=== PATIENT | male | born 1945 | race Caucasian/White ===

== ENCOUNTER 2023-07-15 11:26 | Emergency (ER) | payer OTHER, SELFPAY ==
[2023-07-15 11:33] VITALS: BP 168/97
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
[2023-07-15] MEDS: ADACEL 0.5 ML IM (13:12)
[2023-07-15] MEDS: KEFLEX 500 MG PO (13:12)
[2023-07-15 13:17] VITALS: BP 159/89
== END 2023-07-15 13:25 | disposition home or self-care (01) ==
LOC: EMR 11:26
PROVIDERS: EMERGENCY PHYSICIAN Emergency Medicine; FAMILY PHYSICIAN Family Medicine
DX: S81.811A Laceration without foreign body, right lower leg, initial encounter (principal); W19.XXXA Unspecified fall, initial encounter; W45.8XXA Other foreign body or object entering through skin, initial encounter; G20.A1 Parkinson's disease without dyskinesia, without mention of fluctuations; I12.9 Hypertensive chronic kidney disease with stage 1 through stage 4 chronic kidney disease, or unspecified chronic kidney disease; N18.9 Chronic kidney disease, unspecified; E11.22 Type 2 diabetes mellitus with diabetic chronic kidney disease; N40.0 Benign prostatic hyperplasia without lower urinary tract symptoms; K21.9 Gastro-esophageal reflux disease without esophagitis; G47.30 Sleep apnea, unspecified; E78.00 Pure hypercholesterolemia, unspecified; M19.90 Unspecified osteoarthritis, unspecified site; F43.10 Post-traumatic stress disorder, unspecified; F41.9 Anxiety disorder, unspecified; F32.A Depression, unspecified; Z87.11 Personal history of peptic ulcer disease; Z86.73 Personal history of transient ischemic attack (TIA), and cerebral infarction without residual deficits; Z79.4 Long term (current) use of insulin; Z79.82 Long term (current) use of aspirin
CPT/HCPCS: 12031; 99282; 90471; 90715

== ENCOUNTER 2023-08-28 11:09 | Inpatient (IN) | payer OTHER, SELFPAY ==
[2023-08-28] VITALS (24 sets, daily range): BP systolic 125–171; BP diastolic 68–91; BMI 33.8; BMI 32.2
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
[2023-08-28] MEDS: NITROSTAT (SUBLINGUAL) 0.400000000000000022 MG SL (06:21)
[2023-08-28] MEDS: LOW STRENGTH ASPIRIN 324 MG PO (06:21)
[2023-08-28 06:26] LABS: % Basophils 0.2 % (0-2); % Eosinophils 1.4 % (0-6); % Immature Granulocytes 0.4 % (0-0.5); % Lymphocytes 15.1 % (20.5-51.1); % Monocytes 9.5 % (1.7-9.3); % Neutrophils 73.4 % (42.2-75.2); Absolute Eosinophils 0.1 10^3/uL (0-0.7); Absolute Lymphocytes 1.5 10^3/uL (1.2-3.4); Absolute Neutrophils 7.4 10^3/uL (1.4-6.5); Hematocrit 33.9 % (39.0-52.0); Hemoglobin 11.5 g/dL (13.0-18.0); Mean Corp Hgb Conc. 33.9 g/dL (33.0-37.0); Mean Corpuscular Hgb 28.4 pg (27.0-31.0); Mean Corpuscular Volume 83.7 fL (80.0-94.0); Mean Platelet Volume 10.7 fL (7.4-10.4); Nucleated Red Blood Cells % 0 % (-); Platelet Count 241 10^3/uL (130-400); Red Blood Cell Count 4.05 10^6/uL (4.70-6.10); Red Cell Dist. Width 12.9 % (11.5-14.5); White Blood Cell Count 10.1 10^3/uL (4.8-10.8)
[2023-08-28 06:34] LABS: ALT (SGPT) 15 U/L (0-50); AST (SGOT) 27 U/L (17-59); Albumin 4.4 g/dl (3.5-5.0); Alkaline Phosphatase 113 U/L (38-126); Blood Urea Nitrogen 52 mg/dl (9-20); Calcium 9.2 mg/dl (8.4-10.2); Carbon Dioxide 27 mmol/L (22-30); Chloride 94 mmol/L (98-107); Glucose 252 mg/dl (70-99); Potassium 4.2 mmol/L (3.5-5.1); Sodium 132 mmol/L (135-145); Total Bilirubin 0.4 mg/dl (0.2-1.3); Total Protein 7.7 g/dl (6.3-8.2); eGFR 51.13
[2023-08-28 06:52] LABS: Troponin I 0.335 ng/ml
[2023-08-28 06:53] LABS: Lipase 64 U/L (23-300)
--- NOTE | 2023-08-28 08:33 | CON.CAR ---
Addendum entered and electronically signed by Johnny Robles MD 08/28/23 10:58:
I saw and examined the patient.
The PULP REFINER OPERATOR or PA's note was reviewed and I agree with the note.
Comment: General: Well developed, well nourished in NAD.
Neck: Supple, no JVD, HJR, carotids +2 B/L, no bruits bilaterally.
Heart: Non displaced PMI, RRR, 2/6 systolic murmur heard throughout precordium, no S3, S4, no rubs.
Lungs: Clear to auscultation bilaterally, no wheeze, rhonchi, rubs bilaterally,
normal expiratory phase.
Abdomen: Normal bowel sounds, soft, non-tender, non-distended.
Extremities: Mild edema bilaterally.
Neuro: Grossly nonfocal, awake, alert and oriented x3.
Newton has a history of Parkinson's, hypertension, hyperlipidemia, diabetes, sleep apnea, TIA in 2016, heart murmur. He has had chest discomfort since 2:30 AM. He was unable to sleep and his son took him to the ER. In ER he initially had lower
abdominal pain which was felt to be urinary retention. He also had left-sided chest discomfort which improved with nitroglycerin. Troponin was 0.335 and cardiology was consulted. He denies chest pain at the present time
He has elevated troponin and chest pain. He has significant cardiac risk factors with an abnormal ECG with prior anteroseptal [place] which is unchanged. His chest pain has resolved and he should undergo cardiac catheterization when his workup has been
completed for possible abdominal pain and abnormal CAT scan with inflammation. Will check echocardiogram as he has a murmur consistent with aortic stenosis. Will consider catheterization possibly today or will defer to Wednesday 08/30 depending on
medical workup of abdominal pain and abnormal CAT scan. Of note renal function is relatively stable but abnormal. Will add Toprol. Check proBNP with edema. Discussed with son at bedside.
Original Note:
Consultation
Consultation Request
Date/Time Consultation Performed: 08/28/23
Requesting Provider: Dr. Lamas
Performing Provider: Terri Souza PA-C for Dr. Soto
Reason for Consultation: CP
Medical History
-
Chief Complaint: CP
History of Present Illness:
Patient is a 78-year-old male with past medical history of Parkinson's disease, hypertension, hyperlipidemia, diabetes, former smoker, LISA on BiPAP, BPH, history of TIA in 2016, heart murmur who presents to [facility] for evaluation of
chest pain. He reports that approximately 2:30 AM as he was laying down to go to bed he developed central to left-sided chest pain which he describes as an aching. He denies radiation of the pain, nausea vomiting, worsening shortness of breath,
lightheadedness or dizziness associated with the episode. He reports the pain lasted until he got here and received sublingual nitro. He is currently pain-free. He denies history of [place] or stents in the past. [facility],
however states he has not been seen there in a few years. He believes he has some degree of chronic kidney disease, however cannot tell me his baseline creatinine. Initial troponin 0.335. Cardiology consulted for evaluation
PMH:
Hypertension
Hyperlipidemia
Insulin-dependent diabetes
History of TIA in 2016
Heart murmur
LISA on BiPAP
Parkinson's disease
BPH
Former smoker
Family history of CAD
Past Medical History
Past Medical History: Other (in HPI)
Social History
Tobacco: Former Smoker
Alcohol: None
Personal:
Living: With Family
Employment: Retired
Family History
Family History: CAD (in father in 80s )
Allergies / Home Medications
Allergy/AdvReac Type Severity Reaction Status Date / Time
No Known Allergies Allergy Verified 08/28/23 05:29
�Medication �Instructions �Recorded �Confirmed �Type
Novalog Insulin 10 units SQ TID 11/27/08 11/03/19 History
Rosuvastatin 1 tab PO DAILY 11/27/08 11/03/19 History
Terazosin 3 tab PO HS 11/27/08 11/03/19 History
amlodipine 10 mg tablet 10 mg PO DAILY 11/27/08 11/03/19 History
aspirin 325 mg tablet 325 mg PO DAILY 11/27/08 11/03/19 History
atenolol 100 mg tablet 100 mg PO DAILY 11/27/08 11/03/19 History
furosemide 40 mg tablet 40 mg PO DAILY 11/27/08 11/03/19 History
lisinopril 40 mg tablet (Zestril) 40 mg PO DAILY 11/27/08 11/03/19 History
metformin 1,000 mg tablet 500 mg PO BID 11/27/08 11/03/19 History
omeprazole 20 mg capsule,delayed 20 mg PO DAILY 11/27/08 11/03/19 History
release
Levemir Flexpen: 50 unit SC HS 11/03/19 11/03/19 History
cephalexin 500 mg capsule 500 mg PO TID 3 days #9 caps 07/15/23 Rx
Review of Systems
-
History Source: Patient
All other systems: Negative unless noted
Physical Exam
Vital Signs
Temp Pulse Resp BP Pulse Ox
98.7 F 68 22 168/91 95
08/28/23 05:30 08/28/23 06:23 08/28/23 06:23 08/28/23 06:23 08/28/23 05:30
Lab Results
08/28/23 06:05
08/28/23 06:05
Troponin I 0.335 ng/ml H* 08/28/23 06:05
Physical Exam
General: No Apparent Distress, Comfortable and Other (on supp O2)
HEENT: Normocephalic, Anicteric and Moist Mucous Membranes
Respiratory: Clear and Non Labored Respirations
Cardiac: S1/S2, Regular Rhythm and Murmur
GI: Soft, Non Tender, Non Distended and Normal Bowel Sounds
Musculoskeletal: No Clubbing, No Cyanosis and Edema (1+ edema of B/L LE)
Skin: Warm, Dry and Other (old bandaid on RLE)
Neuro: AO x 3
Impression / Plan
-
Primary councilman: previously followed at the [facility], however not seen in several years
Assessment:
Presentation with CP
Elevated troponin, suspected NSTEMI, trop 0.335
CKD, unclear baseline Cr
Urinary retention/BPH
Chronic anemia
Hyponatremia
Findings consistent with duodenitis/PUD by CTAP 08/27
Severe coronary artery calcification by CTAP
Bifascicular block by EKG 08/27
Hypertension
Hyperlipidemia
Insulin-dependent diabetes
History of TIA in 2015, on chronic asa, plavix
Heart murmur
LISA on BiPAP
Parkinson's disease
BPH
Former smoker
Family history of CAD
ECHO 10/2008: EF 60%, no regional wall motion abnormalities, mild concentric LVH, mild MR, mildly dilated left atrium, mild with trace AI
Plan:
-Patient presents for evaluation of chest pain, relieved in ER by sublingual nitro. Cardiology consulted for evaluation
-remains pain free at present
-Initial troponin 0.335. trend to peak
-EKG sinus rhythm with PVC, bifascicular block
-continue OP asa, plavix
-check echo
-check lipids, hgbA1c, proBNP
-continue OP statin
-CTAP with evidence of coronary artery calcifications noted. also with significant risk factors for CAD as above. concern for MV CAD.
-discussed cath procedure with patient and son at bedside, remains NPO, however also discussed potential for increased procedural risk related to below:
-with anemia but hgb appears stable compared to prior visits. on DAPT as OP and tolerating
-patient believes he has some degree of CKD at baseline, however baseline Cr unknown. 1.4 could be baseline based on last several visits. we discussed risk of ATN associated with contrast from cath
-CTAP with evidence of duodenitis vs PUD. he denies N/V, reports abd pain which he believes is related to current urinary retention. as OP, no complaints of abd pain. eating well, no post prandial pain, fevers, nausea/ vomiting. he does take PPI
as outpatient as on chronic DAPT
-He has Parkinson's however is functional around his home, no significant tremor on exam, controlled on medications
-discussed potential cath today vs on Thursday after optimization pending eval of above
-he has ~1L urine in his bladder by bladder scan. may require straight cath
-d/w patient and son at bedside
Data Reviewed
-
EKG: Tracing Personally Visualized and interpreted
CT Scan: Report Reviewed by me
Medical Tests (Nuc Med, Echo etc): Report Reviewed by me
Labs: Labs Reviewed by me
Old Records: Reviewed
--- NOTE | 2023-08-28 09:09 | PHANOTE ---
08/28/2023, med rec tech, spoke to pt. to obtain pt.'s med. history; [facility] [place] [facility] [place]; pt. came in with paperwork from [facility] from 08/03/2023 with med. slade.
[2023-08-28 09:11] LABS: HDL Cholesterol 55 mg/dl; LDL Cholesterol, Calculated 66 mg/dl; Total Cholesterol 141 mg/dl (50-199); Triglyceride 103 mg/dl (10-149); Very Low Density Lipoprotein 20 mg/dl (0-30)
[2023-08-28 09:22] LABS: NT-proBNP 812 pg/ml
--- NOTE | 2023-08-28 10:05 | CARDSERVLU ---
Echocardiogram with Lumason completed after protocol screening completed. Allergies verified.
Patent IV site: __Rt AC___
IV site flushed with 0.9% NaCl pre and post administration.
Diluted bolus method utilized to enhance visualization of ventricular nichols.
Total volume given: __2.5__ mL
Patient tolerated all procedures well without complications.
[2023-08-28] MEDS: PROTONIX IV 40 MG IV (10:37)
--- NOTE | 2023-08-28 10:47 | HPS.HSE ---
Family Physician
-
Family Physician: Obduloi Pinto
Chief Complaint
-
chest pain
History of Present Illness
78-year-old male with extensive past medical history who is presenting from home with acute onset of left-sided substernal chest pain. Patient stated chest pain started approximately 3:30 AM in the morning right before he was can go to sleep.
Stated was substernal in nature. No radiation. . In the ER patient was also complaining of epigastric abdominal pain. Denies any nausea vomiting. States it has been 2 days since last bowel movement. States he has a history of enlarged
prostate. Denies any hematuria. States he has history of constipation. No prior history of gastrointestinal bleeding. Currently denies any chest pain. The ER patient underwent CT abdomen pelvis where he was found to have a severely enlarged
bladder status post Rod catheter placement.
Medical History
Past Medical History
Past Medical History: Reports Other
Additional Past Medical History:
Parkinson's disease
Primary hypertension
Hyperlipidemia
Insulin-dependent diabetes mellitus
Aortic stenosis
LISA on BiPAP
Depression
Anxiety
PTSD
History of tobacco abuse
BPH
History of TIA
Past Surgical History: Reports None
Social History
Tobacco: Former Smoker (Used to smoke a pack a day for many years quit)
Alcohol: Occasional
Family History
Family History: Not pertinent
Allergies / Home Medications
Allergies reflects when Allergies were last updated in [facility].
Home Medications with original date entered in [facility]
Allergy/Medication List:
Allergies
Allergy/AdvReac Type Severity Reaction Status Date / Time
No Known Allergies Allergy Verified 08/28/23 05:29
Home Medications
aspirin 325 mg tablet 325 mg PO DAILY Blood Clot Prevention/Tx 08/28/23
bupropion HCl 75 mg tablet 75 mg PO HS Mental Health 08/28/23
bupropion HCl 75 mg tablet 150 mg PO DAILY Mental Health 08/28/23
buspirone 15 mg tablet 30 mg PO HS Mental Health 08/28/23
carbidopa 25 mg-levodopa 100 mg tablet 2 tab PO TID Neurological Condition 08/28/23
clopidogrel 75 mg tablet 75 mg PO DAILY Blood Clot Prevention/Tx 08/28/23
cyanocobalamin (vitamin B-12) 1,000 mcg tablet 1,000 mcg PO DAILY Supplement 08/28/23
empagliflozin 25 mg tablet 12.5 mg PO DAILY Diabetes 08/28/23
escitalopram oxalate 10 mg tablet 30 mg PO DAILY Mental Health 08/28/23
finasteride 5 mg tablet 5 mg PO DAILY prostate issue 08/28/23
furosemide 40 mg tablet 40 mg PO DAILY Fluid Retention/Swelling 08/28/23
hydralazine 100 mg tablet 100 mg PO TID Blood Pressure 08/28/23
insulin aspart U-100 100 unit/mL subcutaneous solution (Novolog U-100 Insulin aspart) 0 sliding scale dose SC DIRECTED Diabetes 08/28/23
insulin detemir U-100 100 unit/mL subcutaneous solution (Levemir U-100 Insulin) 80 unit SC HS Diabetes 08/28/23
lisinopril 20 mg tablet 20 mg PO DAILY Blood Pressure 08/28/23
losartan 50 mg tablet 25 mg PO DAILY Blood Pressure 08/28/23
mirtazapine 15 mg tablet 7.5 mg PO HS Mental Health/Anxiety 08/28/23
omeprazole 20 mg capsule,delayed release 20 mg PO DAILY Gastrointestinal Issue 08/28/23
primidone 50 mg tablet 100 mg PO BID movement disorder 08/28/23
rosuvastatin 40 mg tablet 40 mg PO HS hg 08/28/23
tamsulosin 0.4 mg capsule 0.4 mg PO DAILY Urinary Issue 08/28/23
Review of Systems
-
History Source: Patient
A 12 point ROS was completed and negative except as noted: Yes
Physical Exam
Vital Signs
Vital Signs
Temp Pulse Resp BP Pulse Ox
98.7 F 62 20 164/78 95
08/28/23 05:30 08/28/23 10:30 08/28/23 10:30 08/28/23 09:30 08/28/23 10:30
Physical Exam
General: Well Developed, Well Nourished and No Apparent Distress
HEENT: NormoCephalic, Moist mucous membranes, Atraumatic and Oxygen
Respiratory: Clear
Cardiac: S1/S2 and Regular Rhythm; No Murmur or Rub
GI: Soft, Non Tender, Non Distended and Normal Bowel Sounds; No Organomegaly
Rectal: Deferred by Provider
Musculoskeletal: No Clubbing, No Cyanosis, Edema, Left Lower Extremity and Edema, Right Lower Extremity
Skin: No Rash
Neuro: Awake, Alert, Oriented, AO x 3 and Nonfocal/grossly intact
Psych: Calm
Laboratory Results
-
08/28/23 06:05
08/28/23 06:05
Laboratory Results
Total Bilirubin 0.4 mg/dl (0.2-1.3) 08/28/23 06:05
AST 27 U/L (17-59) 08/28/23 06:05
ALT 15 U/L (0-50) 08/28/23 06:05
Alkaline Phosphatase 113 U/L (38-126) 08/28/23 06:05
Troponin I 0.335 ng/ml H* 08/28/23 06:05
Lipase 64 U/L (23-300) 08/28/23 06:05
Impression/Plan
-
#Elevated troponin likely secondary to NSTEMI
#Chest pain secondary to above
Patient on Plavix and full dose aspirin (may need to clarify aspirin dosage)
Check lipid panel and A1c
Continue with statin
Trend troponin.
Echocardiogram with EF of 60 to 65%. Normal diastolic function. Right ventricle dilated. Mild�moderate aortic stenosis.
NTG prn
Intervention cardiology to evaluate patient-? Possible cardiac cath later today. Will keep n.p.o. till then
#Acute urinary retention in the setting of BPH
Status post Rod catheter placement
Continue with Flomax and finasteride
Can consider trial of voiding prior to discharge
#CKD stage III
Patient on CHAPARRO and ARB
Can consider discontinuing 1 of those
Continue to trend creatinine
Hold diuretics for today
#Duodenitis/peptic ulcer disease
Start PPI
#Parkinson's disease
Continue carbidopa levodopa
#Primary hypertension
Continue hydralazine
Consider continuing losartan and stopping CHAPARRO inhibitor
Will defer to cardiology
#Diabetes melitis insulin-dependent
Reduce Lantus to 40 units
Insulin sliding scale Accu-Cheks
Update A1c at 7.8
#Depression/mood disorder
Continue with Remeron
Continue with Lexapro
#Chronic constipation
Start Colace and will add MiraLAX
PTSD
Continue with bupropion and BuSpar
LISA on BiPAP. Son to bring machine from home
DVT prophylaxis- heparin
Discussed with son at bedside in detail
Discussed with cardiology
PT/OT in morning
I spent a total of 80 minutes with the patient or on the floor. More than 50% of this time involved counseling and coordination of care.
[2023-08-28 10:54] LABS: Glycohemoglobin (HgbA1c) 7.8 % (4.0-5.6)
[2023-08-28 14:57] LABS: Troponin I 0.241 ng/ml
[2023-08-28] MEDS: NSS 1000 IV (15:30)
--- NOTE | 2023-08-28 15:32 | CONSULT.CT ---
Consultation
-
Date/Time Consultation Requested: 08/27 1525
Date/Time Consultation Performed: 08/27 1534
Requesting Provider: Suzanna ARANGO
Performing Provider: Selma Cannon MD
Reason for Consultation: CABG Eval
Patient History
Physicians
Family Physician: Obdulio Pinto
Outpatient Lead Ramp Agent: Dr. Johnny Robles
Inpatient Lead Ramp Agent: Dr. Johnny Robles
History of Present Illness
78-year-old male with past medical history of Parkinson's disease, HTN, HLD, diabetes mellitus (insulin-dependent), aortic stenosis, obstructive sleep apnea on BiPAP, depression, anxiety, PTSD, BPH, TIA presented from home on 08/27 with sudden onset
of left substernal chest pain. Patient stated that chest pain started around 3:30 AM. While in the ER patient was complaining of epigastric abdominal pain however denies any nausea/vomiting. He also stated that it has been 2 days since his last
bowel movement and has a history of BPH. Due to the epigastric pain patient went for a CT of his abdomen and pelvis and it was found that he had a severely enlarged bladder therefore a Rod catheter was placed for retention. Patient was noted to
have elevated troponins, peak troponin was 0.335 ng/mL, therefore, patient was taken to the cardiac Fisheries Inspector. While in the Fisheries Inspector patient was found to have multivessel disease and moderate aortic stenosis. Therefore CT surgery was consulted for
surgical evaluation
Past Medical History
Past Medical History: Angina, CAD, Hypercholesterolemia, IDDM, LISA, Psychiatric, Renal Insufficiency and Valvular Disease
Parkinson's disease
Past Surgical History
Past Surgical History: None
Family History
Mother: at Age
Father: at Age
Social History
Alcohol: Occasional
Drug: None
Tobacco: Former Smoker
Allergies
Allergy/AdvReac Type Severity Reaction Status Date / Time
No Known Allergies Allergy Verified 08/28/23 05:29
Home Medications
�Medication �Instructions �Recorded �Confirmed �Type
aspirin 325 mg tablet 325 mg PO DAILY Blood Clot 08/28/23 08/28/23 History
Prevention/Tx
bupropion HCl 75 mg tablet 75 mg PO HS Mental Health 08/28/23 08/28/23 History
bupropion HCl 75 mg tablet 150 mg PO DAILY Mental Health 08/28/23 08/28/23 History
buspirone 15 mg tablet 30 mg PO HS Mental Health 08/28/23 08/28/23 History
carbidopa 25 mg-levodopa 100 mg 2 tab PO TID Neurological Condition 08/28/23 08/28/23 History
tablet
clopidogrel 75 mg tablet 75 mg PO DAILY Blood Clot 08/28/23 08/28/23 History
Prevention/Tx
cyanocobalamin (vitamin B-12) 1,000 mcg PO DAILY Supplement 08/28/23 08/28/23 History
1,000 mcg tablet
empagliflozin 25 mg tablet 12.5 mg PO DAILY Diabetes 08/28/23 08/28/23 History
escitalopram oxalate 10 mg tablet 30 mg PO DAILY Mental Health 08/28/23 08/28/23 History
finasteride 5 mg tablet 5 mg PO DAILY prostate issue 08/28/23 08/28/23 History
furosemide 40 mg tablet 40 mg PO DAILY Fluid 08/28/23 08/28/23 History
Retention/Swelling
hydralazine 100 mg tablet 100 mg PO TID Blood Pressure 08/28/23 08/28/23 History
insulin aspart U-100 100 unit/mL 0 sliding scale dose SC 08/28/23 08/28/23 History
subcutaneous solution (Novolog DIRECTED Diabetes
U-100 Insulin aspart)
insulin detemir U-100 100 unit/mL 80 unit SC HS Diabetes 08/28/23 08/28/23 History
subcutaneous solution (Levemir
U-100 Insulin)
lisinopril 20 mg tablet 20 mg PO DAILY Blood Pressure 08/28/23 08/28/23 History
losartan 50 mg tablet 25 mg PO DAILY Blood Pressure 08/28/23 08/28/23 History
mirtazapine 15 mg tablet 7.5 mg PO HS Mental Health/Anxiety 08/28/23 08/28/23 History
omeprazole 20 mg capsule,delayed 20 mg PO DAILY Gastrointestinal 08/28/23 08/28/23 History
release Issue
primidone 50 mg tablet 100 mg PO BID movement disorder 08/28/23 08/28/23 History
rosuvastatin 40 mg tablet 40 mg PO HS hg 08/28/23 08/28/23 History
tamsulosin 0.4 mg capsule 0.4 mg PO DAILY Urinary Issue 08/28/23 08/28/23 History
Review of Systems
-
History Source: Patient
General: Reports No Symptoms
HEENT: Reports No Symptoms
Respiratory: Reports SOB and QUEZADA
Cardiac: Reports Chest Pain
Abdomen/GI: Reports No Symptoms
: Reports Urgency and Frequency
Musculoskeletal: Reports Edema
Skin: Reports No Symptoms
Neurological: Reports TIA
Vascular: Reports No Symptoms
Physical Exam
Vital Signs
Temp 98.3 F 08/28/23 15:15
Temp route: Oral 08/28/23 15:15
Pulse 62 08/28/23 13:17
Resp Rate 18 08/28/23 15:15
Blood pressure 156/73 08/28/23 13:17
Blood pressure extremity used: Left upper arm 08/28/23 15:15
Position: Lying 08/28/23 15:15
MAP (cuff-Jennifer Monitor) 103 08/28/23 12:30
SaO2 92 08/28/23 15:15
Nasal Cannula flow liters per minute 1 08/28/23 13:23
Oxygen Mode of Delivery Room air 08/28/23 15:15
Acceptable pain level during hospitalization? 0 08/28/23 05:30
Can the patient verbally communicate their pain? Yes 08/28/23 13:23
Pain scale ratin 08/28/23 05:30
Actual Weight 90.537 kg 08/28/23 13:17
Body Mass Index (BMI) 32.2 08/28/23 13:17
Labs
08/28/23 06:05
08/28/23 06:05
Hemoglobin A1c 7.8 % (4.0-5.6) H 08/28/23 06:05
Troponin I 0.241 ng/ml H* 08/28/23 13:25
Pju-C-Qsclemyjpax Pept 812 pg/ml 08/28/23 06:05
Diagnostic Studies
HEMODYNAMICS : (mmHg)
AO (s/d) : 121/60
CORONARY FINDINGS
DOMINANCE: Right
LEFT MAIN: Normal
LEFT ANTERIOR DESCENDING: The LAD is moderate to heavily calcified as it arises from the left main and has diffuse atherosclerotic disease in its midportion. There are tandem 70%, 70%, and 60% stenoses in the mid LAD. The first diagonal branch
arises from the proximal one third of the LAD and has a small caliber vessel that has an 80% proximal stenosis. The diagonal branch is likely too small to graft or for percutaneous revascularization
CIRCUMFLEX: The circumflex is a medium caliber nondominant vessel supplying a large OM1 that runs in a distribution typical for a ramus intermedius. There is a 80% proximal stenosis just beyond its origin with a 95% distal stenosis supplying a
small terminal vessel.
RIGHT CORONARY ARTERY: The right coronary artery is a dominant vessel there is moderately calcified over its course. There is an eccentric 80% stenosis in the mid right coronary artery just beyond an RV marginal branch. The mid to distal RCA has
minor irregularities. The PDA has a 70% ostial stenosis but supplies a small vascular territory. The posterolateral branch has a 60% mid stenosis.
Exam
General: Well Developed, Well Nourished and Comfortable
HEENT: Normocephalic
Respiratory: Clear
Cardiac: Irregular Rhythm and Murmur
GI: Soft, Non Tender and Normal Bowel Sounds
Rectal: Deferred by Provider
Skin: Warm and Dry
Neuro: AO x 3 and Other (delayed/slow speech)
Extremities: Lower Level Edema and Pulses
Lymph: No Lymphadenopathy
Psych: Calm
Assessment / Plan
-
78-year-old male with past medical history listed above presented to the ER with abdominal and chest pain. Found to have acute urinary retention and ruled in for a non-STEMI. Patient was taken to the cardiac Fisheries Inspector in which multivessel disease
was found and CT surgery was consulted for surgical evaluation.
#CAD
-Patient's case will be discussed with attending physician. Further details regarding surgical timing intervention will be determined after attending physicians full evaluation.
-If deemed a surgical candidate, routine preoperative cardiothoracic surgery orders will be initiated. STS risk stratification score will be calculated after preoperative testing is complete
#Acute on Chronic CKD
- Continue to monitor trend
#Parkinson's Disease
- Continue carbidopa-levodopa
#hematuria
#BPH
#urinary retention
- noted to be more bloody s/p LHC
- monitor hgb
- Urology consult
#hyponatermia
- Monitor trend
#IDDM
- Hgb A1c 7.8
- SSI while in patient
- diabetes management consult
--- NOTE | 2023-08-28 15:33 | ITS.CL.CATH ---
[employer] - Catheterization
Cardiac Catheterization
Procedure Report:
LEFT HEART CATHETERIZATION
Date of Procedure: August 28, 2023
Referring: Dr. Johnny Robles
PROCEDURES:
1. Coronary angiography
INDICATION: This is a 78-year-old gentleman who has received most of his medical attention at the [facility]. He has a past medical history notable for Parkinson's disease, hypertension, hyperlipidemia, diabetes, sleep apnea, TIA, and heart
murmur. He awoke with substernal chest tightness and abdominal discomfort in approximately 2:30 AM. His troponin was mildly elevated on presentation peaking at 0.335 ng/mL on admission and trending lower. He has been chest pain-free. Initially
there was concern for abdominal pathology with complaints of abdominal discomfort. However, his symptoms improved following placement of a Rod catheter. A CT scan was notable for mild inflammatory changes in the second and third portion of the
duodenum. However, he was not felt to require IV antibiotics and is now referred for coronary angiography.
ACCESS: Right radial artery, 6 Setswana sheath
HEMODYNAMICS : (mmHg)
AO (s/d) : 121/60
CORONARY FINDINGS
DOMINANCE: Right
LEFT MAIN: Normal
LEFT ANTERIOR DESCENDING: The LAD is moderate to heavily calcified as it arises from the left main and has diffuse atherosclerotic disease in its midportion. There are tandem 70%, 70%, and 60% stenoses in the mid LAD. The first diagonal branch
arises from the proximal one third of the LAD and has a small caliber vessel that has an 80% proximal stenosis. The diagonal branch is likely too small to graft or for percutaneous revascularization
CIRCUMFLEX: The circumflex is a medium caliber nondominant vessel supplying a large OM1 that runs in a distribution typical for a ramus intermedius. There is a 80% proximal stenosis just beyond its origin with a 95% distal stenosis supplying a
small terminal vessel.
RIGHT CORONARY ARTERY: The right coronary artery is a dominant vessel there is moderately calcified over its course. There is an eccentric 80% stenosis in the mid right coronary artery just beyond an RV marginal branch. The mid to distal RCA has
minor irregularities. The PDA has a 70% ostial stenosis but supplies a small vascular territory. The posterolateral branch has a 60% mid stenosis.
VENTRICULOGRAPHY: Not done
RADIATION SUMMARY: Fluoro Time (min): 4.3, Dose (mGy): 374, DAP (Gy.cm2) : 30.5
Closure Device: TR band
CONCLUSIONS
1. Multivessel coronary artery disease
2. Moderate aortic stenosis
RECOMMENDATIONS
1. CT surgical consult to consider coronary artery bypass grafting +/- aortic valve replacement.
2. Will likely need PFTs
3. Family states patient is forgetful at times and has underlying Parkinson's disease. Will need further details
Copy to: Dr. Johnny Robles
--- NOTE | 2023-08-28 15:58 | CM ---
Chart reviewed. Patient is independent of ADLS, lives with his and son in a split level home, 2 KELLEN, 0 DME. Patient currently with no discharge needs. CM to follow.
[2023-08-28] MEDS: APRESOLINE 100 MG PO ×2 (16:11→21:18)
[2023-08-28] MEDS: COLACE 100 MG PO ×2 (16:13→21:16)
[2023-08-28] MEDS: PROSCAR 5 MG PO (16:13)
[2023-08-28] MEDS: TOPROL XL 25 MG PO (16:13)
[2023-08-28] MEDS: SINEMET 25-100 2 TABLET PO ×2 (16:22→21:14)
--- NOTE | 2023-08-28 17:05 | PTCARENOTE ---
Pt received post cath at 1515. Right radial band intact with no bleeding or hematoma. Pt denies any chest pain or sob. Rod draining blood tinged urine. Room air sat 97%.
[2023-08-28 18:01] LABS: Glucose - Point of Care 253 mg/dl (70-99)
[2023-08-28] MEDS: NOVOLOG FLEXPEN-LOW RESISTANCE 3 UNITS SC (18:26)
[2023-08-28 21:13] LABS: Glucose - Point of Care 290 mg/dl (70-99)
[2023-08-28] MEDS: LEVEMIR 0.400000000000000022 UNITS SC (21:13)
[2023-08-28] MEDS: HEPARIN 5000 UNITS SC (21:14)
[2023-08-28] MEDS: WELLBUTRIN REGULAR RELEASE 75 MG PO (21:14)
[2023-08-28] MEDS: REMERON 7.5 MG PO (21:14)
[2023-08-28] MEDS: CRESTOR 40 MG PO (21:14)
[2023-08-28] MEDS: BUSPAR 30 MG PO (21:16)
[2023-08-28] MEDS: MYSOLINE 100 MG PO (21:16)
--- NOTE | 2023-08-28 22:20 | PTCARENOTE ---
Pt ambulating the halls with dgt. POC discussed- pt verbalized understanding. pt occasionally repeats himself- educated on not getting OOB without assistance- Call [facility] within reach- camargo cath cleaned per protocol- draining blood tinged urine.
[2023-08-29] VITALS (7 sets, daily range): BP systolic 106–137; BP diastolic 64–77; BMI 32.4
[2023-08-29 06:10] LABS: Hematocrit 33.2 % (39.0-52.0); Hemoglobin 11.2 g/dL (13.0-18.0); Mean Corp Hgb Conc. 33.7 g/dL (33.0-37.0); Mean Corpuscular Hgb 28.4 pg (27.0-31.0); Mean Corpuscular Volume 84.3 fL (80.0-94.0); Mean Platelet Volume 10.9 fL (7.4-10.4); Platelet Count 228 10^3/uL (130-400); Red Blood Cell Count 3.94 10^6/uL (4.70-6.10); Red Cell Dist. Width 12.9 % (11.5-14.5); White Blood Cell Count 7.4 10^3/uL (4.8-10.8)
[2023-08-29 06:25] LABS: Blood Urea Nitrogen 38 mg/dl (9-20); Calcium 8.9 mg/dl (8.4-10.2); Carbon Dioxide 26 mmol/L (22-30); Chloride 97 mmol/L (98-107); Estimated Creatinine Clearance 49 ml/min; Glucose 156 mg/dl (70-99); Potassium 4.3 mmol/L (3.5-5.1); Sodium 134 mmol/L (135-145); eGFR 55.88
[2023-08-29 06:45] LABS: Glucose - Point of Care 146 mg/dl (70-99)
[2023-08-29] MEDS: COLACE 100 MG PO ×2 (08:04→22:03)
[2023-08-29] MEDS: TOPROL XL 25 MG PO (08:04)
[2023-08-29] MEDS: FLOMAX 0.400000000000000022 MG PO (08:04)
[2023-08-29] MEDS: APRESOLINE 100 MG PO ×3 (08:04→22:03)
[2023-08-29] MEDS: MYSOLINE 100 MG PO ×2 (08:04→22:04)
[2023-08-29] MEDS: VITAMIN B-12 1000 MCG PO (08:05)
[2023-08-29] MEDS: ASPIRIN 325 MG PO (08:05)
[2023-08-29] MEDS: PROSCAR 5 MG PO (08:05)
[2023-08-29] MEDS: HEPARIN 5000 UNITS SC ×2 (08:06→22:04)
[2023-08-29] MEDS: SINEMET 25-100 2 TABLET PO ×3 (08:11→22:04)
[2023-08-29] MEDS: LEXAPRO 30 MG PO (08:11)
[2023-08-29] MEDS: WELLBUTRIN REGULAR RELEASE 150 MG PO (08:11)
[2023-08-29] MEDS: NOVOLOG FLEXPEN-LOW RESISTANCE SC (08:18)
[2023-08-29] MEDS: MIRALAX 17 GRAMS PO (08:21)
--- NOTE | 2023-08-29 09:09 | W.PN.CARDCBS ---
Addendum entered and electronically signed by Edison Bragg MD 08/29/23 09:51:
I saw and examined the patient.
The Structural Shop Helper's note was reviewed and I agree with the note.
Comment:
GEN: No distress, awake, Ox3
HEENT: supple, anicteric, mmm
LUNGS: CTA, no wheezes/rales
CV: Reg, S1/S2, 1/6 syst LSB, no gallop
ABD: soft, BS+, NT/ND
EXT: No edema
NEURO: Gross non-focal
SKIN: No rash
Plan:
Clinically feels well. We reviewed the results of his catheterization. Continue aspirin and hold Plavix.
We will discuss his case with CT surgery and decide on CABG versus PCI. He does have moderate aortic stenosis. If he requires CABG we could do aortic valve as well. Another option would be to have our in several years.
Continue Toprol and Crestor.
Creatinine at 1.3. Will hold on restarting lisinopril/losartan. Likely will add one of the 2 back over the next 24 hours.
Original Note:
Today's Communication / Plan
-
Cont aspirin, outpatient dose of Plavix for h/o TIA is on hold
CABG vs PCI being considered
Cont medical therapy
Impression / Plan
-
PCP: Dr. Obdulio Pinto also follows with a PCP at the OR 1-2 times a year
Primary [employer]endiaries Supervisor: previously followed at the OR, however not seen in several years
Impression:
Presentation with chest pain and abdominal pain
NSTEMI, initial Troponin 0.335 and trending down thereafter
CAD with multivessel CAD by cath 08/28/23
Mild to mod aortic stenosis with mean gradient 19 mmHg by echo 08/28/23
CKD 3
Urinary retention/BPH
Chronic anemia
Hyponatremia
Findings consistent with duodenitis/PUD by CTAP 08/28/23
Bifascicular block by EKG 08/28/23
Hypertension
Hyperlipidemia
DM 2
History of TIA and now on chronic aspirin 325 mg and Plavix daily since 2015
LISA on BiPAP
Parkinson's disease
BPH
Former smoker
Family history of CAD
ECHO 10/2008: EF 60%, no regional wall motion abnormalities, mild concentric LVH, mild MR, mildly dilated left atrium, mild with trace AI
Echo 08/28/23: EF 60-65%, mild to mod with MPG 19 mmHg
Plan:
-Patient found to have multivessel CAD with tandem 60-70% mid LAD lesions, 80% prox Circ, 80 % mid RCA by cath 08/28/23. There was also evidence of moderate on echo and cath. CT surgery team has been consulted. Patient being evaluated for CABG +/-
AVR vs PCI and eventual TAVR.
-Initial Troponin was 0.335 and trended down thereafter. Will manage as NSTEMI. Cont outpatient dose of aspirin 325 mg daily
-Outpatient dose of Plavix is on hold, last dose 08/28/23. Patient has been taking DAPT for TIA since 2015
-EF preserved by echo.
-LDL 66. Outpatient dose of Crestor 40 mg daily has been continued.
-Sinus bradycardia and PVCs noted on overnight tele. Patient was not taking BB prior to admission and was started on Toprol XL 25 mg daily 08/28/23.
-Patient is a known diabetic and HgbA1c was 7.8%
-Cre was 1.4 on admission and is 1.3 on 08/29/23. Patient does not have a known h/o CKD and does not see a pipe changer. Follow BMP. Patient was taking lisinopril 20 mg daily and losartan 25 mg daily prior to admission, both are now on hold.
-Outpatient dose of hydralazine 100 mg TID has been continued and BP is controlled
-CT abd/pelvis on admission showed duodenitis vs PUD. Abdominal pain on admission appeared to resolve with resolution of urinary retention and has not recurred. He denies N/V. Outpatient dose of omeprazole switched to Protonix 40 mg daily
-Rod catheter in place
Progress Note - Incendiaries Supervisor
Subjective
Date of Service: August 29, 2023
No chest pain
Objective
Labs:
08/29/23 05:22
08/29/23 05:22
Labs
Hgb 11.2 g/dL (13.0-18.0) L 08/29/23 05:22
Hct 33.2 % (39.0-52.0) L 08/29/23 05:22
Plt Count 228 10^3/uL (130-400) 08/29/23 05:22
Sodium 134 mmol/L (135-145) L 08/29/23 05:22
Potassium 4.3 mmol/L (3.5-5.1) 08/29/23 05:22
BUN 38 mg/dl (9-20) H 08/29/23 05:22
Creatinine 1.3 mg/dL (0.7-1.3) 08/29/23 05:22
Glucose 156 mg/dl (70-99) H 08/29/23 05:22
Troponins
08/28/23 08/28/23 08/28/23
06:05 11:50 13:25
Troponin I 0.335 H* 0.230 H* D 0.241 H*
Vital Signs and I&O:
Vital Signs
Temp Pulse Resp BP Pulse Ox
98.5 F 62 20 126/72 96
08/29/23 06:45 08/29/23 07:00 08/29/23 06:45 08/29/23 06:45 08/29/23 06:45
Vital Signs
Temp Pulse Resp BP Pulse Ox
98.5 F 62 20 126/72 96
08/29/23 06:45 08/29/23 07:00 08/29/23 06:45 08/29/23 06:45 08/29/23 06:45
Intake & Output
08/27/23 08/28/23 08/29/23 08/30/23
06:59 06:59 06:59 06:59
Intake Total 480 / 480
Output Total 5425 / 5425
Balance -4945 / -4945
Physical Exam
Physical Exam
GEN: NAD. AAOx3
HEENT: EOMI, MMM
LUNGS: CTA without rales
CV: Reg, 2/6 syst LSB
ABD: soft, BS+
EXT: No edema B/L
NEURO: Gross non-focal
SKIN: No rash
[2023-08-29] MEDS: PROTONIX 40 MG PO (09:33)
--- NOTE | 2023-08-29 10:50 | W.PN.HOSP.TC ---
Today's Communication/Plan
-
AP agents
statin
CTS/Cards recs
hold acei/arb
Assessment / Plan
Assessment / Plan
#NSTEMI
#Chest pain secondary to above
#CAD multivessel
Patient on Plavix and full dose aspirin since 2016 s/p TIA at [facility]. No f/u since then for meds changing.
Continue with statin
Trend troponin.
Echocardiogram with EF of 60 to 65%. Normal diastolic function. Right ventricle dilated. Mild�moderate aortic stenosis.
Cardiac cath with mutivessel CAD.
CT surgery c/s for CABG +/- AVR
LDL 66
NTG prn
#Acute urinary retention in the setting of BPH
Status post Rod catheter placement
Continue with Flomax and finasteride
Can consider trial of voiding prior to discharge
#CKD stage III
Patient on CHAPARRO and ARB-hold both and can restart one of them.
Can consider discontinuing 1 of those
Continue to trend creatinine
Hold diuretics for today
#Duodenitis/peptic ulcer disease
Start PPI
#Parkinson's disease
Continue carbidopa levodopa
#Primary hypertension
Continue hydralazine
Consider continuing losartan and stopping CHAPARRO inhibitor
Will defer to cardiology
#Diabetes melitis insulin-dependent
Reduce Lantus to 40 units
Insulin sliding scale Accu-Cheks
Update A1c at 7.8
#Depression/mood disorder
Continue with Remeron
Continue with Lexapro
#Chronic constipation
Start Colace and will add MiraLAX
PTSD
Continue with bupropion and BuSpar
LISA on BiPAP. Son to bring machine from home
DVT prophylaxis- heparin
Discussed with cardiology
Anticipated Discharge: > 48 hours
Subjective/Interval History
-
Date of Service: August 29, 2023
denies cp or sob
Objective Data
-
Labs:
Laboratory Results
08/29/23
05:22
WBC 7.4
Hgb 11.2 L
Hct 33.2 L
Plt Count 228
Sodium 134 L
Potassium 4.3
Chloride 97 L
Carbon Dioxide 26
BUN 38 H
Creatinine 1.3
Glucose 156 H
Calcium 8.9
Vital Signs:
Vital Signs
Temp Pulse Resp BP Pulse Ox
98.5 F 62 20 126/72 96
08/29/23 06:45 08/29/23 07:00 08/29/23 06:45 08/29/23 06:45 08/29/23 06:45
I&O
08/28/23 08/29/23 08/30/23
06:59 06:59 06:59
Intake Total 480 / 480
Output Total 5425 / 5425
Balance -4945 / -4945
Physical Exam
-
General: Well Developed and No Apparent Distress
HEENT: Normocephalic, Atraumatic and Moist Mucous Membranes
Respiratory: Clear to Auscultation
Cardiac: Regular Rhythm and S1/S2; Negative Murmur, Rub or Gallop
GI: Soft, Nontender, Nondistended and Normal Bowel Sounds; Negative Organomegaly
Rectal: Deferred by Provider
Musculoskeletal: No Clubbing, No Cyanosis and No Edema
Skin: Negative Rash
Neuro: Awake, AO x 3 and Nonfocal/Grossly Intact
Psych: Calm
[2023-08-29] MEDS: NOVOLOG FLEXPEN-LOW RESISTANCE 2 UNITS SC (11:41)
[2023-08-29 11:42] LABS: Glucose - Point of Care 247 mg/dl (70-99)
[2023-08-29 16:59] LABS: Glucose - Point of Care 182 mg/dl (70-99)
[2023-08-29] MEDS: NOVOLOG FLEXPEN-LOW RESISTANCE 1 UNITS SC (17:04)
--- NOTE | 2023-08-29 17:23 | W.PN.UPDATE ---
Update Note
Progress Note Update
STS risk calc.
AVR/CABG
operative mortality 6.89%
morbidity&mortality 21.2%
Stroke 4.75%
Renal failure 10.2%
Reoperation 4.78%
Prolonged ventilation 14.7%
Deep sternal wound infection 0.532%
Long hospital stay(>14 days) 19.6%
Short hospital stay(>6days) 11.8%
--- NOTE | 2023-08-29 20:29 | PTCARENOTE ---
Pt resting in bed at change of shift- no complaints at this time. POC discussed- pt verbalized understanding. VSS. SB 1st degree and BBB on the monitor.
[2023-08-29 22:03] LABS: Glucose - Point of Care 222 mg/dl (70-99)
[2023-08-29] MEDS: WELLBUTRIN REGULAR RELEASE 75 MG PO (22:03)
[2023-08-29] MEDS: REMERON 7.5 MG PO (22:03)
[2023-08-29] MEDS: BUSPAR 30 MG PO (22:03)
[2023-08-29] MEDS: LEVEMIR 0.400000000000000022 UNITS SC (22:04)
[2023-08-29] MEDS: CRESTOR 40 MG PO (22:04)
[2023-08-30 04:58] VITALS: BP 130/78
[2023-08-30 06:01] LABS: Blood Urea Nitrogen 38 mg/dl (9-20); Calcium 8.4 mg/dl (8.4-10.2); Carbon Dioxide 25 mmol/L (22-30); Chloride 103 mmol/L (98-107); Estimated Creatinine Clearance 42 ml/min; Glucose 126 mg/dl (70-99); Magnesium 2.4 mg/dl (1.6-2.3); Potassium 4.1 mmol/L (3.5-5.1); Sodium 134 mmol/L (135-145); eGFR 47.06
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
[2023-08-30 07:50] VITALS: BP 133/35
[2023-08-30] MEDS: LEXAPRO 30 MG PO (07:58)
[2023-08-30] MEDS: SINEMET 25-100 2 TABLET PO ×3 (07:58→22:49)
[2023-08-30] MEDS: FLOMAX 0.400000000000000022 MG PO (07:59)
[2023-08-30] MEDS: MYSOLINE 100 MG PO ×2 (07:59→19:52)
[2023-08-30] MEDS: APRESOLINE 100 MG PO ×3 (07:59→22:49)
[2023-08-30] MEDS: PROTONIX 40 MG PO (07:59)
[2023-08-30] MEDS: VITAMIN B-12 1000 MCG PO (07:59)
[2023-08-30] MEDS: WELLBUTRIN REGULAR RELEASE 150 MG PO (08:00)
[2023-08-30] MEDS: ASPIRIN 325 MG PO (08:00)
[2023-08-30] MEDS: PROSCAR 5 MG PO (08:01)
[2023-08-30] MEDS: COLACE 100 MG PO ×2 (08:01→19:52)
[2023-08-30] MEDS: HEPARIN 5000 UNITS SC ×2 (08:04→19:52)
[2023-08-30] MEDS: MIRALAX 17 GRAMS PO (08:07)
[2023-08-30 08:08] VITALS: BMI 32.3
--- NOTE | 2023-08-30 08:20 | W.PN.UPDATE ---
Update Note
Progress Note Update
D/w Dr. Soto regarding plan of care. Family discloses he has been hallucinating and also more forgetful. MDT discussion with consensus to pursue PCI with TAVR evaluation once meets criteria. Per Dr. Soto, resume plavix.
Jake Cannon MD, MS
[2023-08-30 08:55] LABS: Glucose - Point of Care 128 mg/dl (70-99)
[2023-08-30] MEDS: NOVOLOG FLEXPEN-LOW RESISTANCE SC (09:09)
[2023-08-30] MEDS: PLAVIX 75 MG PO (09:45)
[2023-08-30] MEDS: TOPROL XL PO (10:53)
--- NOTE | 2023-08-30 11:12 | W.PN.CARDCBS ---
Today's Communication / Plan
-
Plan is for multivessel PCI on August 30
Check repeat creatinine in a.m. Current creatinine 1.5 continue to hold lisinopril and Cozaar
Having some sinus bradycardia with heart rates in the 30s. Hold Toprol
Continue aspirin and load Plavix today.
Continue high-dose Crestor
Impression / Plan
-
PCP: Dr. Obdulio Pinto also follows with a PCP at the [facility] 1-2 times a year
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
Impression:
Presentation with chest pain and abdominal pain
NSTEMI, initial Troponin 0.335 and trending down thereafter
CAD with multivessel CAD by cath 08/28/23
Mild to mod aortic stenosis with mean gradient 19 mmHg by echo 08/28/23
CKD 3
Urinary retention/BPH
Chronic anemia
Hyponatremia
Findings consistent with duodenitis/PUD by CTAP 08/28/23
Bifascicular block by EKG 08/28/23
Hypertension
Hyperlipidemia
DM 2
History of TIA and now on chronic aspirin 325 mg and Plavix daily since 2015
LISA on BiPAP
Parkinson's disease
BPH
Former smoker
Family history of CAD
ECHO 10/2008: EF 60%, no regional wall motion abnormalities, mild concentric LVH, mild MR, mildly dilated left atrium, mild with trace AI
Echo 08/28/23: EF 60-65%, mild to mod with MPG 19 mmHg
Plan:
-Patient found to have multivessel CAD with tandem 60-70% mid LAD lesions, 80% prox Circ, 80 % mid RCA by cath 08/28/23. There was also evidence of moderate on echo and cath. CT surgery team has been consulted. After discussions with
interventional cardiology, plan is for multivessel PCI August 30
-Initial Troponin was 0.335 and trended down thereafter. Will manage as NSTEMI. Cont outpatient dose of aspirin 325 mg daily
-Restart Plavix. Will load with 300 mg today.
-EF preserved by echo.
-LDL 66. Outpatient dose of Crestor 40 mg daily has been continued.
-Patient with marked bradycardia overnight with heart rates in the 30s. Will hold metoprolol today.
-Patient is a known diabetic and HgbA1c was 7.8%
-Cre was 1.4 on admission and is 1.5Patient does not have a known h/o CKD and does not see a dry house operator. Follow BMP. Patient was taking lisinopril 20 mg daily and losartan 25 mg daily prior to admission, both are now on hold.
-Outpatient dose of hydralazine 100 mg TID has been continued and BP is controlled
-CT abd/pelvis on admission showed duodenitis vs PUD. Abdominal pain on admission appeared to resolve with resolution of urinary retention and has not recurred. He denies N/V. Outpatient dose of omeprazole switched to Protonix 40 mg daily
Progress Note - Solid Waste Landfill Technician
Subjective
Date of Service: August 30, 2023
No new chest pains or abdominal pains.
Objective
Labs:
08/29/23 05:22
08/30/23 05:01
Labs
Hgb 11.2 g/dL (13.0-18.0) L 08/29/23 05:22
Hct 33.2 % (39.0-52.0) L 08/29/23 05:22
Plt Count 228 10^3/uL (130-400) 08/29/23 05:22
Sodium 134 mmol/L (135-145) L 08/30/23 05:01
Potassium 4.1 mmol/L (3.5-5.1) 08/30/23 05:01
BUN 38 mg/dl (9-20) H 08/30/23 05:01
Creatinine 1.5 mg/dL (0.7-1.3) H 08/30/23 05:01
Glucose 126 mg/dl (70-99) H 08/30/23 05:01
Troponins
08/28/23 08/28/23 08/28/23
06:05 11:50 13:25
Troponin I 0.335 H* 0.230 H* D 0.241 H*
Vital Signs and I&O:
Vital Signs
Temp Pulse Resp BP Pulse Ox
98.2 F 55 18 133/35 97
08/30/23 06:16 08/30/23 07:50 08/30/23 06:16 08/30/23 07:50 08/30/23 08:00
Vital Signs
Temp Pulse Resp BP Pulse Ox
98.2 F 55 18 133/35 97
08/30/23 06:16 08/30/23 07:50 08/30/23 06:16 08/30/23 07:50 08/30/23 08:00
Intake & Output
08/28/23 08/29/23 08/30/23 08/31/23
06:59 06:59 06:59 06:59
Intake Total 480 / 480
Output Total 5425 / 5425 850 / 850
Balance -4945 / -4945 -850 / -850
Physical Exam
Physical Exam
GEN: No distress, awake, Ox3
HEENT: supple, anicteric, mmm
LUNGS: CTA, no wheezes/rales
CV: Reg, S1/S2, 1/6 syst LSB, no gallop
ABD: soft, BS+, NT/ND
EXT: No edema
NEURO: Gross non-focal
SKIN: No rash
[2023-08-30 12:00] VITALS: BP 107/67
--- NOTE | 2023-08-30 12:15 | W.PN.HOSP.TC ---
Today's Communication/Plan
-
Cath w/ plan for intervention in the morning
Continue aspirin Plavix
Monitor sugars
Monitor blood pressure
Repeat labs in the morning
Assessment / Plan
Assessment / Plan
#NSTEMI
#Chest pain secondary to above
#CAD multivessel
# Bradycardia
Patient on Plavix and full dose aspirin since 2016 s/p TIA at [facility]. No f/u since then for meds changing.
Continue with statin
Toprol held for bradycardia
Echocardiogram with EF of 60 to 65%. Normal diastolic function. Right ventricle dilated. Mild�moderate aortic stenosis.
Cardiac cath with mutivessel CAD.
CT surgery no plan for intervention.
Plan for multivessel PCI tomorrow. Plavix restarted by cardiology.
LDL 66
NTG prn
#Acute urinary retention in the setting of BPH
Status post Rod catheter placement
Continue with Flomax and finasteride
Can consider trial of voiding prior to discharge
#CKD stage III
Patient on CHAPARRO and ARB-hold both and can restart one of them.
Can consider discontinuing 1 of those
Continue to trend creatinine
Creatinine 1.5. Repeat in the morning.
#Duodenitis/peptic ulcer disease
Start PPI�improving
#Parkinson's disease
Continue carbidopa levodopa
#Primary hypertension
Continue hydralazine
With bradycardia and metoprolol held
Consider continuing losartan and stopping CHAPARRO inhibitor
Will defer to cardiology
#Diabetes melitis insulin-dependent
Reduce Lantus to 40 units compared to 80 units prior to arrival at home
Insulin sliding scale Accu-Cheks
Update A1c at 7.8
POC 128 AM
#Depression/mood disorder
Continue with Remeron
Continue with Lexapro
#Chronic constipation
Start Colace and will add MiraLAX
PTSD
Continue with bupropion and BuSpar
LISA on BiPAP. Son to bring machine from home
DVT prophylaxis- heparin subcu
Anticipated Discharge: > 48 hours
Subjective/Interval History
-
Date of Service: August 30, 2023
Denies any chest pain
Tolerating diet
Objective Data
-
Labs:
Laboratory Results
08/30/23
05:01
Sodium 134 L
Potassium 4.1
Chloride 103
Carbon Dioxide 25
BUN 38 H
Creatinine 1.5 H
Glucose 126 H
Calcium 8.4
Vital Signs:
Vital Signs
Temp Pulse Resp BP Pulse Ox
98.2 F 55 18 133/35 97
08/30/23 06:16 08/30/23 07:50 08/30/23 06:16 08/30/23 07:50 08/30/23 08:00
I&O
08/29/23 08/30/23 08/31/23
06:59 06:59 06:59
Intake Total 480 / 480
Output Total 5425 / 5425 850 / 850
Balance -4945 / -4945 -850 / -850
Physical Exam
-
General: Well Developed and No Apparent Distress
HEENT: Normocephalic, Atraumatic and Moist Mucous Membranes
Respiratory: Clear to Auscultation
Cardiac: Regular Rhythm and S1/S2; Negative Murmur, Rub or Gallop
GI: Soft, Nontender, Nondistended and Normal Bowel Sounds; Negative Organomegaly
Rectal: Deferred by Provider
Musculoskeletal: No Clubbing, No Cyanosis and No Edema
Skin: Negative Rash
Neuro: Awake, AO x 3 and Nonfocal/Grossly Intact
Psych: Calm
[2023-08-30] MEDS: NOVOLOG FLEXPEN-LOW RESISTANCE 3 UNITS SC (12:27)
[2023-08-30 12:31] LABS: Glucose - Point of Care 257 mg/dl (70-99)
[2023-08-30 15:08] VITALS: BP 114/96
[2023-08-30] MEDS: PLAVIX 225 MG PO (15:12)
[2023-08-30 17:54] LABS: Glucose - Point of Care 197 mg/dl (70-99)
--- NOTE | 2023-08-30 18:00 | PTCARENOTE ---
Pt denies any chest pain or sob. OOB ad paulo in the room and tolerated oob in the chair all day. Rod still draining blood tinged urine. No c/o offered.
[2023-08-30] MEDS: NOVOLOG FLEXPEN-LOW RESISTANCE 1 UNITS SC (18:38)
[2023-08-30 18:58] VITALS: BP 127/67
[2023-08-30 21:57] LABS: Glucose - Point of Care 251 mg/dl (70-99)
[2023-08-30 22:32] VITALS: BP 122/68
[2023-08-30] MEDS: LEVEMIR SC (22:46)
[2023-08-30] MEDS: LEVEMIR 0.200000000000000011 UNITS SC (22:48)
[2023-08-30] MEDS: WELLBUTRIN REGULAR RELEASE 75 MG PO (22:49)
[2023-08-30] MEDS: BUSPAR 30 MG PO (22:49)
[2023-08-30] MEDS: REMERON 7.5 MG PO (22:49)
[2023-08-30] MEDS: CRESTOR 40 MG PO (22:49)
[2023-08-31] VITALS (13 sets, daily range): BP systolic 97–151; BP diastolic 64–133; BMI 32.3
--- NOTE | 2023-08-31 01:16 | PTCARENOTE ---
assumed care of patient at the change of shift. AAOx3. denies any cp/sob. SB-SR, first degree AVB and BBB-40s-60s. bp stable. NPO at midnight for cardiac cath. patient verbalized understanding. camargo care completed. camargo draining blood tinged
urine. educated to call RN with any changes. calls appropriately.
HS Levemir dose lowered per Arianne Anderson SCOOP DRIVER, see mar. BG 251, NPO.
[2023-08-31 04:52] LABS: INR 1.11; PT 14.1 Sec (11.4-14.6)
[2023-08-31 05:02] LABS: Blood Urea Nitrogen 41 mg/dl (9-20); Calcium 8.6 mg/dl (8.4-10.2); Carbon Dioxide 25 mmol/L (22-30); Chloride 102 mmol/L (98-107); Estimated Creatinine Clearance 42 ml/min; Glucose 182 mg/dl (70-99); Potassium 4.6 mmol/L (3.5-5.1); Sodium 131 mmol/L (135-145); eGFR 47.06
--- NOTE | 2023-08-31 05:31 | PTCARENOTE ---
patient slept well overnight. no cp/sob. wore his own BIPAP. NPO since midnight. Sinus oz 40s. bp stable.
[2023-08-31 07:41] LABS: Glucose - Point of Care 157 mg/dl (70-99)
[2023-08-31] MEDS: NOVOLOG FLEXPEN-LOW RESISTANCE SC ×3 (09:36→14:46)
[2023-08-31] MEDS: PROTONIX 40 MG PO (10:01)
[2023-08-31] MEDS: COLACE 100 MG PO ×2 (10:01→20:10)
[2023-08-31] MEDS: FLOMAX 0.400000000000000022 MG PO (10:01)
[2023-08-31] MEDS: APRESOLINE 100 MG PO ×3 (10:01→22:17)
[2023-08-31] MEDS: VITAMIN B-12 1000 MCG PO (10:02)
[2023-08-31] MEDS: PLAVIX 75 MG PO (10:02)
[2023-08-31] MEDS: WELLBUTRIN REGULAR RELEASE 150 MG PO (10:02)
[2023-08-31] MEDS: PROSCAR 5 MG PO (10:02)
[2023-08-31] MEDS: LEXAPRO 30 MG PO (10:03)
[2023-08-31] MEDS: ASPIRIN 325 MG PO (10:03)
[2023-08-31] MEDS: MYSOLINE 100 MG PO ×2 (10:03→20:10)
[2023-08-31] MEDS: MIRALAX PO (10:03)
[2023-08-31] MEDS: SINEMET 25-100 2 TABLET PO ×3 (10:03→22:16)
[2023-08-31] MEDS: HEPARIN 5000 UNITS SC ×2 (10:04→20:10)
--- NOTE | 2023-08-31 11:34 | CM ---
Chart reviewed. Patent is waiting to go to the orthodontic laboratory technician for a PCI. Patient is independent of ADLS, lives with his and son in a split level home, 2 KELLEN, 0 DME. Plan is for the patient to return home. CM to follow
--- NOTE | 2023-08-31 12:00 | PTCARENOTE ---
report given to pipelines laborer.
[2023-08-31 12:34] LABS: ACT-LR - POC 265 Seconds (116-155)
[2023-08-31 13:07] LABS: ACT-LR - POC 268 Seconds (116-155)
[2023-08-31 13:25] LABS: ACT-LR - POC > 397 Seconds (116-155)
--- NOTE | 2023-08-31 13:51 | ITS.CL.CATH ---
Fittings Finisher - Catheterization
Cardiac Catheterization
Procedure Report:
ANGIOPLASTY REPORT
Date of Procedure: August 31, 2023
Referring: Dr. Johnny Robles
INDICATIONS: This is a 78-year-old gentleman with a past medical history notable for longstanding Parkinson's disease, diabetes, and recent hospitalization for chest pain and non-ST segment elevation myocardial infarction. He was referred for
coronary angiography and found to have multivessel coronary artery disease with a high-grade stenosis in the mid right coronary artery and heavily calcified moderate multisegment coronary disease in the LAD and circumflex. The family reported a
gradual decline in patient's cognition and visual hallucinations most likely associated with his longstanding Parkinson's disease. He was seen in consult by CT surgery and offered surgical revascularization but was felt to be at significantly
elevated risk. He was therefore referred for reevaluation of percutaneous treatment options and returns today for elective stenting of the mid RCA.
PROCEDURES:
1. Successful stenting of the mid RCA with a 4.0 x 28 mm Xience stent that was postdilated with a 5.0 mm noncompliant balloon
ACCESS: Right radial artery, 6 [place] sheath
ANGIOPLASTY REPORT: Arterial access was obtained in the right radial artery and 9000 units of intravenous heparin were administered. Additional heparin was administered to maintain a therapeutic ACT. The patient arrived to the catheterization
laboratory on background therapy of aspirin and clopidogrel. The origin of the right coronary artery was cannulated with a 6 [place] JR4 guiding catheter and a BMW guidewire crossed the stenosis in the mid RCA and was advanced to the distal vessel
with a moderate degree of difficulty. Balloon predilation was performed with a 2.5 x 15 mm trek balloon. A GuideLiner was advanced to the mid RCA as the JR4 catheter provided little backup support. A 4.0 x 28 mm Xience stent was then advanced
over the guidewire but still would not cross the high-grade mid RCA stenosis. The stent was removed and the mid RCA was predilated to high pressures with a 3 mm noncompliant balloon. The GuideLiner was advanced over the balloon as the balloon was
deflated and into/across the most stenotic segment in the mid RCA. A 4.0 x 28 mm Xience stent could easily be delivered and GuideLiner was retracted uncovering the stent in the mid RCA. Angiography revealed excellent position of the stent which
was then deployed at 12 marcela. The entire stented segment was postdilated with a 5.0 mm noncompliant balloon to high pressures with a nice angiographic result
COMPLICATIONS: None
RADIATION SUMMARY: Fluoro Time (min): 10.6, Dose (mGy): 763.6, DAP (Gy.cm2) : 36.9
CONCLUSION
1. Successful stenting of the mid right coronary artery with a 4.0 x 28 mm Xience stent that was implanted at nominal pressures then postdilated to high pressures with a 5.0 mm noncompliant balloon
RECOMMENDATIONS
1. Uninterrupted dual antiplatelet therapy
2. Residual coronary disease in the circumflex and the LAD could be approached percutaneously for anginal symptoms refractory to medical therapy
Copy to: Dr. Johnny Robles
--- NOTE | 2023-08-31 14:20 | W.PN.HOSP.TC ---
Today's Communication/Plan
-
for PCI today
f/u renal function
will attempt voiding trial tomorrow
Assessment / Plan
Assessment / Plan
# Non-STEMI
# Chest pain secondary to above
# CAD multivessel
# Bradycardia
Patient on Plavix and full dose aspirin since 2016 s/p TIA at [facility]. No f/u since then for meds changing.
Continue with statin
Echocardiogram with EF of 60 to 65%. Normal diastolic function. Right ventricle dilated. Mild�moderate aortic stenosis.
Cardiac cath with multi-vessel CAD.
CT surgery no plan for intervention.
Plan for multivessel PCI today.
#Acute urinary retention in the setting of BPH
Status post Rod catheter placement
Continue with Flomax and finasteride
Can consider trial of voiding prior to discharge
#CKD stage III
Patient on CHAPARRO and ARB-hold both and can restart one of them.
Can consider discontinuing 1 of those
Continue to trend creatinine
Increased risk for KHUSHBOO with CKD/DM2
#Duodenitis/peptic ulcer disease
Start PPI�improving
#Parkinson's disease
Continue carbidopa levodopa
#Essential hypertension
Continue hydralazine
With bradycardia and metoprolol held
Consider continuing losartan and stopping CHAPARRO inhibitor
Will defer to cardiology
#Diabetes melitis insulin-dependent
Reduce Lantus to 40 units compared to 80 units prior to arrival at home
Insulin sliding scale Accu-Cheks
Update A1c at 7.8
#Depression/mood disorder
Continue with Remeron
Continue with Lexapro
#Chronic constipation
Start Colace and will add MiraLAX
#PTSD
Continue with bupropion and BuSpar
# LISA on BiPAP.
Son to bring machine from home
DVT prophylaxis- heparin subcu
Anticipated Discharge: Within 24 hours
Subjective/Interval History
-
Date of Service: August 31, 2023
No issues overnight
Objective Data
-
Labs:
Laboratory Results
08/31/23
04:21
PT 14.1
INR 1.11
Sodium 131 L
Potassium 4.6
Chloride 102
Carbon Dioxide 25
BUN 41 H
Creatinine 1.5 H
Glucose 182 H
Calcium 8.6
Vital Signs:
Vital Signs
Temp Pulse Resp BP Pulse Ox
97.7 F 49 18 133/75 95
08/31/23 13:38 08/31/23 13:45 08/31/23 13:38 08/31/23 13:45 08/31/23 13:38
I&O
08/30/23 08/31/23 09/01/23
06:59 06:59 06:59
Intake Total 400 / 400
Output Total 850 / 850 0 / 0 500 / 500
Balance -850 / -850 -1650 / -1650 -500 / -500
Review of Systems
-
Respiratory: Reports No Symptoms
Cardiac: Reports No Symptoms
Abdomen/GI: Reports No Symptoms
Physical Exam
-
General: No Apparent Distress
HEENT: Moist Mucous Membranes
Respiratory: Clear to Auscultation
Cardiac: Regular Rhythm and S1/S2; Negative Murmur
GI: Soft, Nontender, Nondistended and Normal Bowel Sounds
Rectal: Deferred by Provider
Musculoskeletal: No Edema
Skin: Negative Rash
Neuro: Awake, AO x 3 and Nonfocal/Grossly Intact
Psych: Calm
[2023-08-31 14:36] LABS: Glucose - Point of Care 135 mg/dl (70-99)
[2023-08-31 17:31] LABS: Glucose - Point of Care 296 mg/dl (70-99)
[2023-08-31] MEDS: NOVOLOG FLEXPEN-LOW RESISTANCE 3 UNITS SC (17:35)
[2023-08-31] MEDS: MIRALAX 17 GRAMS PO (17:39)
--- NOTE | 2023-08-31 20:20 | PTCARENOTE ---
NSR with first degree and BBB. VSS on RA. R radial site with dime size amount of drainage. No hematoma, pulse palpable. Rod with blood tinged urine. Assessment per nursing flowsheet.
[2023-08-31] MEDS: WELLBUTRIN REGULAR RELEASE 75 MG PO (22:16)
[2023-08-31] MEDS: CRESTOR 40 MG PO (22:16)
[2023-08-31] MEDS: BUSPAR 30 MG PO (22:16)
[2023-08-31] MEDS: REMERON 7.5 MG PO (22:17)
[2023-08-31 22:18] LABS: Glucose - Point of Care 321 mg/dl (70-99)
[2023-08-31] MEDS: LEVEMIR 0.400000000000000022 UNITS SC (22:19)
--- NOTE | 2023-09-01 01:21 | PTCARENOTE ---
Assumed care. Patient in chair, assisted to bed. Right radial site unchanged, scant drainage. Rod blood tinged with dark red sediment. QUEZADA, resolves with rest, home CPAP, call [facility]berry in reach
[2023-09-01 04:02] VITALS: BP 140/77
[2023-09-01 04:32] LABS: Hematocrit 31.4 % (39.0-52.0); Hemoglobin 10.6 g/dL (13.0-18.0); Mean Corp Hgb Conc. 33.8 g/dL (33.0-37.0); Mean Corpuscular Hgb 28.3 pg (27.0-31.0); Mean Platelet Volume 10.6 fL (7.4-10.4); Platelet Count 217 10^3/uL (130-400); Red Blood Cell Count 3.74 10^6/uL (4.70-6.10); Red Cell Dist. Width 13.1 % (11.5-14.5); White Blood Cell Count 6.3 10^3/uL (4.8-10.8)
[2023-09-01 05:01] LABS: Blood Urea Nitrogen 38 mg/dl (9-20); Calcium 8.4 mg/dl (8.4-10.2); Carbon Dioxide 21 mmol/L (22-30); Chloride 105 mmol/L (98-107); Estimated Creatinine Clearance 45 ml/min; Glucose 203 mg/dl (70-99); HDL Cholesterol 43 mg/dl; LDL Cholesterol, Calculated 56 mg/dl; Potassium 4.6 mmol/L (3.5-5.1); Sodium 133 mmol/L (135-145); Total Cholesterol 131 mg/dl (50-199); Triglyceride 161 mg/dl (10-149); Very Low Density Lipoprotein 32 mg/dl (0-30); eGFR 51.13
[2023-09-01 06:59] VITALS: BP 103/55
[2023-09-01 07:07] LABS: Glucose - Point of Care 160 mg/dl (70-99)
[2023-09-01] MEDS: NOVOLOG FLEXPEN-LOW RESISTANCE 1 UNITS SC (08:31)
[2023-09-01] MEDS: SINEMET 25-100 2 TABLET PO ×3 (08:32→22:24)
[2023-09-01] MEDS: APRESOLINE 100 MG PO ×3 (08:32→22:23)
[2023-09-01] MEDS: COLACE 100 MG PO ×2 (08:32→19:48)
[2023-09-01] MEDS: MIRALAX 17 GRAMS PO (08:32)
[2023-09-01] MEDS: PLAVIX 75 MG PO (08:32)
[2023-09-01] MEDS: PROTONIX 40 MG PO (08:33)
[2023-09-01] MEDS: MYSOLINE 100 MG PO ×2 (08:33→19:48)
[2023-09-01] MEDS: WELLBUTRIN REGULAR RELEASE 150 MG PO (08:33)
[2023-09-01] MEDS: HEPARIN 5000 UNITS SC ×2 (08:33→19:48)
[2023-09-01] MEDS: FLOMAX 0.400000000000000022 MG PO (08:33)
[2023-09-01] MEDS: VITAMIN B-12 1000 MCG PO (08:33)
[2023-09-01] MEDS: PROSCAR 5 MG PO (08:33)
[2023-09-01] MEDS: LEXAPRO 30 MG PO (08:33)
[2023-09-01] MEDS: LOW STRENGTH ASPIRIN 81 MG PO (08:33)
--- NOTE | 2023-09-01 10:05 | W.PN.CARDCBS ---
Addendum entered and electronically signed by Edison Bragg MD 09/01/23 10:53:
I saw and examined the patient.
The Manager Product Support's note was reviewed and I agree with the note.
Comment:
GEN: No distress, awake, Ox3
HEENT: supple, anicteric, mmm
LUNGS: CTA, no wheezes/rales
CV: Reg, S1/S2, 1/6 syst LSB, no gallop
ABD: soft, BS+, NT/ND
EXT: No edema
NEURO: Gross non-focal
SKIN: No rash
PLan:
Has no chest pains status post RCA PCI. Plan is to treat LAD and left circumflex lesions medically for now.
Continue aspirin and Plavix. Creatinine is overall stable at 1.4. Will restart lisinopril today. Has not tolerated beta-blockers because of marked bradycardia.
Is having some hematuria. Will discuss with medicine regarding discharge planning
Hemoglobin stable at 10.6
Original Note:
Today's Communication / Plan
-
Cont aspirin 81 mg and Plavix 75 mg daily
Restarting lower dose of lisinopril 10 mg daily
Cannot take Toprol XL due to bradycardia despite compliance with BiPAP
Stable for d/c from cardiac standpoint
Impression / Plan
-
PCP: Dr. Obdulio Pinto also follows with a PCP [facility] 1-2 times a year
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
Impression:
Presentation with chest pain and abdominal pain
NSTEMI, initial Troponin 0.335 and trending down thereafter
CAD with multivessel CAD by cath 08/28/23
Mild to mod aortic stenosis with mean gradient 19 mmHg by echo 08/28/23
CKD 3
Urinary retention/BPH
Chronic anemia
Hyponatremia
Findings consistent with duodenitis/PUD by CTAP 08/28/23
Bifascicular block by EKG 08/28/23
Hypertension
Hyperlipidemia
DM 2
History of TIA and now on chronic aspirin 325 mg and Plavix daily since 2015
LISA on BiPAP
Parkinson's disease
BPH
Former smoker
Family history of CAD
ECHO 10/2008: EF 60%, no regional wall motion abnormalities, mild concentric LVH, mild MR, mildly dilated left atrium, mild with trace AI
Echo 08/28/23: EF 60-65%, mild to mod with MPG 19 mmHg
Plan:
-Patient is s/p 4.0 Xience to mid RCA 08/31/23. Patient with residual tandem 60-70% mid LAD lesions and 80% prox Circ lesions that will be medically managed, but if patient has recurrent symptoms then will take back to sleep lab technician. Overall patient
reports that he is symptomatically improved compared to pre-PCI.
-There was also evidence of mild to moderate on echo and cath, plan is to follow by echo and symptomatically and can consider TAVR in the future.
-Initial Troponin was 0.335 and trended down thereafter. Will manage as NSTEMI.
-Patient was taking aspirin 325 mg and Plavix 75 mg daily prior to admission for h/o TIA in 2015. Aspirin dose reduced to 81 mg daily and Plavix continued.
-EF preserved by echo.
-LDL 66. Outpatient dose of Crestor 40 mg daily has been continued.
-Patient developed bradycardia with HRs in the 30s on Toprol XL 25 mg daily that was started this admission. Patient with known LISA and he was compliant with BiPAP during these episodes. Toprol XL stopped.
-Patient is a known diabetic and HgbA1c was 7.8%
-Cre peaked at 1.5 and is down to 1.4 on 09/01/23. Outpatient doses of lisinopril 20 mg daily and losartan 25 mg daily held. BP currently controlled, but higher overnight. Will restart lisinopril 10 mg daily 09/01/23 and recheck BMP as an outpatient in
1-2 weeks.
-Outpatient dose of hydralazine 100 mg TID has been continued
-CT abd/pelvis on admission showed duodenitis vs PUD. Abdominal pain on admission appeared to resolve with resolution of urinary retention and has not recurred. He denies N/V. Outpatient dose of omeprazole switched to Protonix 40 mg daily
-Stable for d/c to home from a cardiac standpoint on 09/01/23
Progress Note - Fiberglass Container Winding Operator
Subjective
Date of Service: September 01, 2023
He feels well and wants to go home today
Objective
Labs:
09/01/23 04:15
09/01/23 04:15
Labs
Hgb 10.6 g/dL (13.0-18.0) L 09/01/23 04:15
Hct 31.4 % (39.0-52.0) L 09/01/23 04:15
Plt Count 217 10^3/uL (130-400) 09/01/23 04:15
PT 14.1 Sec (11.4-14.6) 08/31/23 04:21
INR 1.11 08/31/23 04:21
Sodium 133 mmol/L (135-145) L 09/01/23 04:15
Potassium 4.6 mmol/L (3.5-5.1) 09/01/23 04:15
BUN 38 mg/dl (9-20) H 09/01/23 04:15
Creatinine 1.4 mg/dL (0.7-1.3) H 09/01/23 04:15
Glucose 203 mg/dl (70-99) H 09/01/23 04:15
Vital Signs and I&O:
Vital Signs
Temp Pulse Resp BP Pulse Ox
97.5 F 60 16 103/55 96
09/01/23 06:57 09/01/23 10:00 09/01/23 06:57 09/01/23 08:32 09/01/23 08:30
Vital Signs
Temp Pulse Resp BP Pulse Ox
97.5 F 60 16 103/55 96
09/01/23 06:57 09/01/23 10:00 09/01/23 06:57 09/01/23 08:32 09/01/23 08:30
Intake & Output
08/30/23 08/31/23 09/01/23 09/02/23
06:59 06:59 06:59 06:59
Intake Total 400 / 400
Output Total 850 / 850 2049 / 2049 1325 / 1325
Balance -850 / -850 -1650 / -1650 -1325 / -1325
Physical Exam
Physical Exam
GEN: NAD. AAOx3
HEENT: EOMI, MMM
LUNGS: No audible wheeze
CV: SR on tele
ABD: ND
EXT: No edema B/L
NEURO: Gross non-focal
SKIN: No rash
--- NOTE | 2023-09-01 10:55 | PTCARENOTE ---
received patient from night RN, monitor shows NSR with first degree.right radial dsg. shows old blood, good radial pulse. camargo draining blood tinged urine with clots, Dr. Whitlock aware.
--- NOTE | 2023-09-01 11:38 | CONS.URO ---
Consultation
-
Performing Provider: Johanna
Reason for Consultation: Urinary retention, hematuria
Medical History
History of Present Illness
78M admitted with NSTEMI
On admission he was found to have massively distended bladder without hydronephrosis
He was not complaining of difficulty voiding at this time and was surprised to be told his bladder was full
Camargo was placed for drainage of >1000cc
He has PMH of BPH, parkinsons, DM and has not had a urologist in the past follow bladder function. No prior episodes of known urinary retention. Currently managed with tamsulosin and finasteride.
At his baseline he is not particularly bothered by urinary symptoms
He does have some straining to void at times, occasional leakage. Stream slower than in the past.
Past Medical History
Past Medical History: Other (Parkinson's disease Primary hypertension Hyperlipidemia Insulin-dependent diabetes mellitus Aortic stenosis LISA on BiPAP Depression Anxiety PTSD History of tobacco abuse BPH History of TIA)
Past Surgical History: None
Social History
Tobacco: Former Smoker
Alcohol: Occasional
Family History
Family History: Reviewed & Not Pertinent
Allergies/Home Medications
Allergies
Allergy/AdvReac Type Severity Reaction Status Date / Time
No Known Allergies Allergy Verified 08/28/23 05:29
Home Medications
�Medication �Instructions �Recorded �Confirmed �Type
bupropion HCl 75 mg tablet 75 mg PO Mental Health 08/28/23 08/28/23 History
bupropion HCl 75 mg tablet 150 mg PO DAILY Mental Health 08/28/23 08/28/23 History
buspirone 15 mg tablet 30 mg PO Mental Health 08/28/23 08/28/23 History
carbidopa 25 mg-levodopa 100 mg 2 tab PO TID Neurological Condition 08/28/23 08/28/23 History
tablet
clopidogrel 75 mg tablet 75 mg PO DAILY Blood Clot 08/28/23 08/28/23 History
Prevention/Tx
cyanocobalamin (vitamin B-12) 1,000 mcg PO DAILY Supplement 08/28/23 08/28/23 History
1,000 mcg tablet
empagliflozin 25 mg tablet 12.5 mg PO DAILY Diabetes 08/28/23 08/28/23 History
escitalopram oxalate 10 mg tablet 30 mg PO DAILY Mental Health 08/28/23 08/28/23 History
finasteride 5 mg tablet 5 mg PO DAILY prostate issue 08/28/23 08/28/23 History
hydralazine 100 mg tablet 100 mg PO TID Blood Pressure 08/28/23 08/28/23 History
insulin aspart U-100 100 unit/mL 0 sliding scale dose SC 08/28/23 08/28/23 History
subcutaneous solution (Novolog DIRECTED Diabetes
U-100 Insulin aspart)
mirtazapine 15 mg tablet 7.5 mg PO HS Mental Health/Anxiety 08/28/23 08/28/23 History
omeprazole 20 mg capsule,delayed 20 mg PO DAILY Gastrointestinal 08/28/23 08/28/23 History
release Issue
primidone 50 mg tablet 100 mg PO BID movement disorder 08/28/23 08/28/23 History
rosuvastatin 40 mg tablet 40 mg PO HS hg 08/28/23 08/28/23 History
tamsulosin 0.4 mg capsule 0.4 mg PO DAILY Urinary Issue 08/28/23 08/28/23 History
aspirin 81 mg chewable tablet 81 mg PO DAILY Heart 09/01/23 Rx
(Children's Aspirin) disease/condition #30 tabs
furosemide 20 mg tablet (Lasix) 20 mg PO DAILY Fluid 09/01/23 Rx
retention/Swelling #30 tabs
insulin detemir U-100 100 unit/mL 60 unit (0.6 mL) SC HS Diabetes #0 09/01/23 08/28/23 Rx
subcutaneous solution (Levemir mL
U-100 Insulin)
lisinopril 10 mg tablet 10 mg PO DAILY Heart 09/01/23 Rx
disease/condition #30 tabs
pantoprazole 40 mg tablet,delayed 40 mg PO DAILY Gastrointestinal 09/01/23 Rx
release issue #30 tabs
Physical Exam
Vital Signs
Vital Signs
Temp Pulse Resp BP Pulse Ox
97.5 F 60 16 103/55 96
09/01/23 06:57 09/01/23 10:00 09/01/23 06:57 09/01/23 08:32 09/01/23 08:30
Lab / Testing Results
Laboratory Results
09/01/23 04:15
09/01/23 04:15
Physical Exam
General: Well Developed, Well Nourished and No Apparent Distress
Respiratory: Clear and Non Labored Respirations
GI: Soft and Non Tender
Genito-urinary: No Costovertebral Tend, Clear Urine and Camargo Catheter
Neuro: AO x 3
Psych: Calm and Intact Judgement
Assessment / Plan
-
78M admitted with NSTEMI and found to have large volume urinary retention >1000cc s/p camargo placement
Hx of BPH on tamsulosin and finasteride
- Suspect acute on chronic urinary retention given large volume and relative lack of symptoms
- May be due to BPH or contributed to by Parkinson's and DM causing neurogenic bladder
- Mild hematuria after camargo placement resolving, urine yellow today
- Maintain camargo, trial of void starting in early AM when nearing hospital discharge
- If significant retention persists, replace camargo
Outpatient follow up for further workup
[2023-09-01 12:08] VITALS: BP 148/89
[2023-09-01 12:23] LABS: Glucose - Point of Care 234 mg/dl (70-99)
[2023-09-01] MEDS: NOVOLOG FLEXPEN-LOW RESISTANCE 2 UNITS SC ×2 (12:27→17:38)
[2023-09-01 15:19] VITALS: BP 150/76
--- NOTE | 2023-09-01 16:37 | W.PN.HOSP.TC ---
Today's Communication/Plan
-
monitor overnight for resolution of hematuria
continue cardiac meds
Assessment / Plan
Assessment / Plan
# Non-STEMI
# Chest pain secondary to above
# CAD multivessel
# Bradycardia
Patient on Plavix and full dose aspirin since 2016 s/p TIA at [facility]. No f/u since then for meds changing.
Continue with statin
Echocardiogram with EF of 60 to 65%. Normal diastolic function. Right ventricle dilated. Mild�moderate aortic stenosis.
CT surgery no plan for intervention.
S/p RCA stenting by cardiology on 08/30 -cleared by cardiology to be discharged today
#Acute urinary retention in the setting of BPH
Hematuria
Status post Camargo catheter placement
Continue with Flomax and finasteride
Patient having mild hematuria, urology help requested -recommended to monitor overnight and voiding trial if hematuria clears in AM
#CKD stage III
Patient on CHAPARRO and ARB-hold both and can restart one of them.
Can consider discontinuing 1 of those
Continue to trend creatinine
Increased risk for KHUSHBOO with CKD/DM2
#Duodenitis/peptic ulcer disease
Start PPI�improving
#Parkinson's disease
Continue carbidopa levodopa
#Essential hypertension
Continue hydralazine
With bradycardia and metoprolol held
Consider continuing losartan and stopping CHAPARRO inhibitor
Will defer to cardiology
#Diabetes melitis insulin-dependent
Reduce Lantus to 40 units compared to 80 units prior to arrival at home
Insulin sliding scale Accu-Cheks
Update A1c at 7.8
#Depression/mood disorder
Continue with Remeron
Continue with Lexapro
#Chronic constipation
Start Colace and will add MiraLAX
#PTSD
Continue with bupropion and BuSpar
# LISA on BiPAP.
Son to bring machine from home
DVT prophylaxis- heparin subcu
Anticipated Discharge: Within 24 hours
Subjective/Interval History
-
Date of Service: September 01, 2023
Seen and examined
no chest discomfort/shortness of breath
No acute issues reported overnight
Objective Data
-
Labs:
Laboratory Results
09/01/23
04:15
WBC 6.3
Hgb 10.6 L
Hct 31.4 L
Plt Count 217
Sodium 133 L
Potassium 4.6
Chloride 105
Carbon Dioxide 21 L
BUN 38 H
Creatinine 1.4 H
Glucose 203 H
Calcium 8.4
Vital Signs:
Vital Signs
Temp Pulse Resp BP Pulse Ox
99.3 F 59 16 150/76 95
09/01/23 15:19 09/01/23 16:09 09/01/23 15:19 09/01/23 16:09 09/01/23 15:19
I&O
08/31/23 09/01/23 09/02/23
06:59 06:59 06:59
Intake Total 400 / 400
Output Total 2049 1325 / 1325 700 / 700
Balance -1650 / -1650 -1325 / -1325 -700 / -700
Review of Systems
-
Respiratory: Reports No Symptoms
Cardiac: Reports No Symptoms
Physical Exam
-
General: No Apparent Distress
HEENT: Moist Mucous Membranes
Respiratory: Clear to Auscultation
Cardiac: Regular Rhythm and S1/S2; Negative Murmur
GI: Soft, Nontender, Nondistended and Normal Bowel Sounds
Rectal: Deferred by Provider
Genito-urinary: Other (Hematuria/camargo catheter in place)
Musculoskeletal: No Edema
Skin: Negative Rash
Neuro: Awake, AO x 3 and Nonfocal/Grossly Intact
Psych: Calm
[2023-09-01 17:30] LABS: Glucose - Point of Care 231 mg/dl (70-99)
--- NOTE | 2023-09-01 18:14 | PTCARENOTE ---
patient has had numerous BM's today, patient stated, 'I shouldn't of had that prune juice'. Rod cath. remains intact draining blood tinged urine.
[2023-09-01 19:21] VITALS: BP 152/70
[2023-09-01 22:18] VITALS: BP 156/84
[2023-09-01 22:24] LABS: Glucose - Point of Care 259 mg/dl (70-99)
[2023-09-01] MEDS: REMERON 7.5 MG PO (22:24)
[2023-09-01] MEDS: CRESTOR 40 MG PO (22:24)
[2023-09-01] MEDS: BUSPAR 30 MG PO (22:24)
[2023-09-01] MEDS: LEVEMIR 0.400000000000000022 UNITS SC (22:25)
[2023-09-01] MEDS: WELLBUTRIN REGULAR RELEASE 75 MG PO (22:25)
--- NOTE | 2023-09-02 00:50 | PTCARENOTE ---
Pt.'s Rod continues to drain blood tinged uirne with bloody sediment. VSS, NSR on the monitor. No complaints chest pain/discomfort, right radial cath site intact. Pt. sleeping.
[2023-09-02 04:27] VITALS: BP 123/64
[2023-09-02 08:09] VITALS: BP 118/62
[2023-09-02 08:13] LABS: Glucose - Point of Care 140 mg/dl (70-99)
[2023-09-02] MEDS: NOVOLOG FLEXPEN-LOW RESISTANCE SC (08:21)
--- NOTE | 2023-09-02 08:46 | W.PN.HOSP.TC ---
Today's Communication/Plan
-
Voiding trial - if fails will need reinsertion of camargo
check h&h and BMP
discharge home
Assessment / Plan
Assessment / Plan
# Non-STEMI
# Chest pain secondary to above
# CAD multivessel
# Bradycardia
Patient on Plavix and full dose aspirin since 2016 s/p TIA at [facility]. No f/u since then for meds changing.
Continue with statin
Echocardiogram with EF of 60 to 65%. Normal diastolic function. Right ventricle dilated. Mild�moderate aortic stenosis.
CT surgery no plan for intervention.
S/p RCA stenting by cardiology on 08/30 -cleared by cardiology to be discharged
#Acute urinary retention in the setting of BPH
Hematuria
Status post Camargo catheter placement
Continue with Flomax and finasteride
Hematuria decreased, patient wants to do Voiding trial - order placed for camargo to be removed
Patient provided contact information for dr shahid's office.
#CKD stage III
Patient on CHAPARRO and ARB-hold both and can restart one of them.
Can consider discontinuing 1 of those
Continue to trend creatinine
Increased risk for KHUSHBOO with CKD/DM2
#Duodenitis/peptic ulcer disease
Start PPI�improving
#Parkinson's disease
Continue carbidopa levodopa
#Essential hypertension
Continue hydralazine
With bradycardia and metoprolol held
Consider continuing losartan and stopping CHAPARRO inhibitor
Will defer to cardiology
#Diabetes melitis insulin-dependent
Reduce Lantus to 40 units compared to 80 units prior to arrival at home
Insulin sliding scale Accu-Cheks
Update A1c at 7.8
#Depression/mood disorder
Continue with Remeron
Continue with Lexapro
#Chronic constipation
Start Colace and will add MiraLAX
#PTSD
Continue with bupropion and BuSpar
# LISA on BiPAP.
Son to bring machine from home
DVT prophylaxis- heparin subcu
More than 30 minutes spent in discharge including
Final examination of the patient
Summarizing hospital stay
Instructions for continuing care to all relevant caregivers
Preparation of discharge records, prescriptions, and referral forms
Total time spent (in minutes): 35 mins
Anticipated Discharge: Today
Subjective/Interval History
-
Date of Service: September 02, 2023
hematuria improved
no chest pain/ cardiac complains
Objective Data
-
Vital Signs:
Vital Signs
Temp Pulse Resp BP Pulse Ox
98.1 F 53 20 123/64 93
09/02/23 08:06 09/02/23 04:27 09/02/23 08:06 09/02/23 04:27 09/02/23 08:06
I&O
09/01/23 09/02/23 09/03/23
06:59 06:59 06:59
Intake Total 240 / 240
Output Total 1325 / 1325 2500 / 2500
Balance -1325 / -1325 -2260 / -2260
Review of Systems
-
Respiratory: Reports No Symptoms
Cardiac: Reports No Symptoms
Abdomen/GI: Reports No Symptoms
Physical Exam
-
General: No Apparent Distress
HEENT: Negative Oxygen
Respiratory: Clear to Auscultation
Cardiac: Regular Rhythm and S1/S2; Negative Murmur
GI: Soft, Nontender, Nondistended and Normal Bowel Sounds
Genito-urinary: Other (Hematuria/camargo catheter in place)
Musculoskeletal: No Edema
Skin: Negative Rash
Neuro: Awake, AO x 3 and Nonfocal/Grossly Intact
Psych: Calm
[2023-09-02] MEDS: PLAVIX 75 MG PO (09:17)
[2023-09-02] MEDS: ZESTRIL 10 MG PO (09:17)
[2023-09-02] MEDS: WELLBUTRIN REGULAR RELEASE 150 MG PO (09:18)
[2023-09-02] MEDS: VITAMIN B-12 1000 MCG PO (09:18)
[2023-09-02] MEDS: FLOMAX 0.400000000000000022 MG PO (09:18)
[2023-09-02] MEDS: LOW STRENGTH ASPIRIN 81 MG PO (09:18)
[2023-09-02] MEDS: COLACE PO (09:19)
[2023-09-02] MEDS: MYSOLINE 100 MG PO (09:19)
[2023-09-02] MEDS: PROTONIX 40 MG PO (09:19)
[2023-09-02] MEDS: APRESOLINE 100 MG PO ×2 (09:19→16:18)
[2023-09-02] MEDS: MIRALAX PO (09:20)
[2023-09-02] MEDS: HEPARIN SC (09:20)
[2023-09-02] MEDS: SINEMET 25-100 2 TABLET PO ×2 (09:22→16:18)
[2023-09-02] MEDS: LEXAPRO 30 MG PO (09:23)
[2023-09-02] MEDS: PROSCAR 5 MG PO (09:24)
[2023-09-02 09:29] LABS: Hematocrit 34.7 % (39.0-52.0); Hemoglobin 11.3 g/dL (13.0-18.0)
[2023-09-02 09:55] LABS: Blood Urea Nitrogen 36 mg/dl (9-20); Calcium 9.3 mg/dl (8.4-10.2); Carbon Dioxide 25 mmol/L (22-30); Chloride 102 mmol/L (98-107); Estimated Creatinine Clearance 45 ml/min; Glucose 138 mg/dl (70-99); Potassium 5.1 mmol/L (3.5-5.1); Sodium 136 mmol/L (135-145); eGFR 51.13
[2023-09-02 11:09] VITALS: BP 128/63
--- NOTE | 2023-09-02 12:30 | W.PN.CARDCBS ---
Addendum entered and electronically signed by Rosalind Mistry MD 09/02/23 14:48:
I saw and examined the patient.
The Repairer Pump's note was reviewed and I agree with the note.
Comment: Overall doing well. No major complaints. Has not ambulated halls yet.
Vitals and Labs reviewed. Exam with well developed gentleman with no acute distress, right radial site is dressed with no hematoma or bruit, RR, normal S1 and S2, no m/r/g, abd soft, NT, ND +BS warm ext
Reccs:
1. Cont DAPT with ASA and plvix, high intensity statin. BB not tolerated due to bradycardia.
2. Renal fxn remains stable.
3. Plan to ambulate and if no issues stable for discharge from cardiac standpoint.
4. Outpt cardiac rehab.
Rosalind Mistry MD, [facility], [facility]
Original Note:
Today's Communication / Plan
-
Cont aspirin 81 mg and Plavix 75 mg daily
Cre stable after restarting lower dose of lisinopril 10 mg daily yesterday
Lab slip for repeat BMP left with d/c papers in chart
Cannot take Toprol XL due to bradycardia despite compliance with BiPAP
Stable for d/c from cardiac standpoint
Impression / Plan
-
PCP: Dr. Obdulio Pinto also follows with a PCP at the [place] 1-2 times a year
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
Impression:
Presentation with chest pain and abdominal pain
NSTEMI, initial Troponin 0.335 and trending down thereafter
CAD with multivessel CAD by cath 08/28/23
Mild to mod aortic stenosis with mean gradient 19 mmHg by echo 08/28/23
CKD 3
Urinary retention/BPH
Chronic anemia
Hyponatremia
Findings consistent with duodenitis/PUD by CTAP 08/28/23
Bifascicular block by EKG 08/28/23
Hypertension
Hyperlipidemia
DM 2
History of TIA and now on chronic aspirin 325 mg and Plavix daily since 2016
LISA on BiPAP
Parkinson's disease
BPH
Former smoker
Family history of CAD
ECHO 10/2008: EF 60%, no regional wall motion abnormalities, mild concentric LVH, mild MR, mildly dilated left atrium, mild with trace AI
Echo 08/28/23: EF 60-65%, mild to mod with MPG 19 mmHg
Plan:
-Patient was scheduled for discharge 09/02/23, but then developed hematuria. Patient with a h/o BPH and self catheterizes at home. Rod placed this admission. Voiding trial planned for 09/02/23 and if needed Rod will be re-placed and patient will
follow up with urology as an outpatient.
-Patient with NSTEMI and multivessel CAD this admission. Ultimately had a 4.0 Xience to mid RCA 08/31/23. Patient with residual tandem 60-70% mid LAD lesions and 80% prox Circ lesions that will be medically managed, but if patient has recurrent
symptoms then will take back to computer lab assistant. Overall patient reports that he is symptomatically improved compared to pre-PCI.
-There was also evidence of mild to moderate on echo and cath, plan is to follow by echo as well as symptomatically and can consider TAVR in the future.
-Initial Troponin was 0.335 and trended down thereafter. Will manage as NSTEMI.
-Patient was taking aspirin 325 mg and Plavix 75 mg daily prior to admission for h/o TIA in 2015. Aspirin dose reduced to 81 mg daily and Plavix continued.
-EF preserved by echo.
-LDL 66. Outpatient dose of Crestor 40 mg daily has been continued.
-Patient developed bradycardia with HRs in the 30s on Toprol XL 25 mg daily that was started this admission. Patient with known LISA and he was compliant with BiPAP during these episodes. Toprol XL stopped.
-Patient is a known diabetic and HgbA1c was 7.8%
-Cre peaked at 1.5 this admission. Outpatient doses of lisinopril 20 mg daily and losartan 25 mg daily held this admission due to EWA. Restarted lisinopril 10 mg daily 09/01/23 and Cre stable at 1.4 on 09/02/23. Recheck BMP as an outpatient in 1-2
weeks.
-Outpatient dose of hydralazine 100 mg TID has been continued
-CT abd/pelvis on admission showed duodenitis vs PUD. Abdominal pain on admission appeared to resolve with resolution of urinary retention and has not recurred. He denies N/V. Outpatient dose of omeprazole switched to Protonix 40 mg daily
-Stable for d/c to home from a cardiac standpoint on 09/02/23
Progress Note - Diamond Selector
Subjective
Date of Service: September 02, 2023
He feels well and wants to go home
Objective
Labs:
09/02/23 09:06
09/02/23 09:06
Labs
Hgb 11.3 g/dL (13.0-18.0) L 09/02/23 09:06
Hct 34.7 % (39.0-52.0) L 09/02/23 09:06
Plt Count 217 10^3/uL (130-400) 09/01/23 04:15
PT 14.1 Sec (11.4-14.6) 08/31/23 04:21
INR 1.11 08/31/23 04:21
Sodium 136 mmol/L (135-145) 09/02/23 09:06
Potassium 5.1 mmol/L (3.5-5.1) 09/02/23 09:06
BUN 36 mg/dl (9-20) H 09/02/23 09:06
Creatinine 1.4 mg/dL (0.7-1.3) H 09/02/23 09:06
Glucose 138 mg/dl (70-99) H 09/02/23 09:06
Vital Signs and I&O:
Vital Signs
Temp Pulse Resp BP Pulse Ox
97.7 F 51 20 118/62 95
09/02/23 11:03 09/02/23 08:09 09/02/23 11:03 09/02/23 08:09 09/02/23 11:03
Vital Signs
Temp Pulse Resp BP Pulse Ox
97.7 F 51 20 118/62 95
09/02/23 11:03 09/02/23 08:09 09/02/23 11:03 09/02/23 08:09 09/02/23 11:03
Intake & Output
08/31/23 09/01/23 09/02/23 09/03/23
06:59 06:59 06:59 06:59
Intake Total 400 / 400 240 / 240
Output Total 2049 / 2049 1325 / 1325 2500 / 2500
Balance -1650 / -1650 -1325 / -1325 -2260 / -2260
Physical Exam
Physical Exam
GEN: NAD. AAOx3
HEENT: EOMI, MMM
LUNGS: No audible wheeze
CV: SR on tele
ABD: ND
EXT: No edema B/L
NEURO: Gross non-focal
SKIN: No rash
[2023-09-02 12:49] LABS: Glucose - Point of Care 306 mg/dl (70-99)
--- NOTE | 2023-09-02 12:54 | CM ---
Addendum entered by DALILA Gamboa 09/03/23 08:53:
Correction to below note:
Pt. was DC'ed to home w/ [facility].
Original Note:
CM following for DC planning needs.
Anticipate DC to home today. There are no identified DC needs.
Plan is for home, no needs.
[2023-09-02] MEDS: NOVOLOG FLEXPEN-LOW RESISTANCE 4 UNITS SC ×2 (13:37→17:27)
[2023-09-02] MEDS: PREVNAR 20 0.5 ML IM (13:42)
[2023-09-02 15:41] VITALS: BP 159/76
[2023-09-02 17:31] LABS: Glucose - Point of Care 328 mg/dl (70-99)
[2023-09-02 19:25] VITALS: BP 136/74
--- NOTE | 2023-09-02 19:30 | PTCARENOTE ---
Pt with no c/o today. Pt to be discharged when son arrives. Discharge instructions given and reviewed with good understanding. Rod instructions completed for care at home. Pt verbalizes good understanding.
[2023-09-02 19:40] VITALS: BP 136/74
--- NOTE | 2023-09-02 19:40 | PTCARENOTE ---
Son came up to room to apple picking supervisor patient. reviewed discharge instructions with son and emphasized with patient. VSS. IV site removed. tele removed. patient escorted with all belongings to sons car via wheelchair by RN.
--- NOTE | 2023-09-04 07:30 | W.DCSUMMARY ---
Discharge Summary
Discharge Data
Date of Admission: 08/28/23
Date of Discharge: 09/02/23
-
Pending Results: No
Hospital Course
Discharging Physician : Dr Emmanuel Whitlock
Disposition : Home with HH
Primary care physician : Dr Obdulio Pinto
Principal Discharge diagnosis :
Non-ST segment elevation myocardial infarction from multivessel coronary disease
Acute urine retention
Hematuria
Chronic Discharge diagnosis :
Chronic kidney disease stage III
History of peptic ulcer disease
Parkinson's disease
Essential hypertension
Diabetes mellitus
Depression/mood disorder
Posttraumatic stress disorder
Obstructive sleep apnea on positive pressure therapy
Hospital Course :
Patient is a 78-year-old male with above-mentioned complex past medical history came to ER with new onset of left-sided chest pain. Patient has a history of coronary artery disease and based on clinical evaluation there was concern patient having
NSTEMI. Troponin were elevated. Patient was started on heparin drip and cardiology was involved in care. Patient was taken to [facility] which showed multivessel coronary disease and moderate aortic stenosis. Patient was brought back for CT
surgery evaluation for possible bypass graft and aortic valve replacement. Cardio thoracic surgery evaluated patient and after discussion with interventional cardiology it was decided for patient to take repeat complicated PCI and eventual TAVR.
Patient underwent uncomplicated repeat PCI with stenting of right coronary artery with Xience stent. Patient has been recommended for uninterrupted dual antiplatelet therapy going forward. Patient had some residual coronary artery disease in
circumflex and LAD and can be intervened upon if have further symptoms. Patient to follow-up with cardiology in office.
Patient also had new urinary retention diagnosed in ER requiring Rod catheter placement. Patient does have history of BPH but has not been following with any urologist at [facility] lately. Post heart catheterization patient was noted to having some
hematuria and urology evaluated patient. Urology recommended for patient to visit in office for further discussion of definitive treatment of prostate enlargement. Voiding trial was attempted although patient failed and Rod was reinserted at
discharge.
Important imaging findings :
None
Procedure findings :
None
Discharge Plan
-
Patient Disposition: Home with Home Care
Discharge Diagnosis/Procedures: NSTEMI, s/p angioplasty and stent to Right Coronary artery
Condition: Good
Diet: Low Cholesterol and Diabetic, Carb Controlled
Activity: Other activity
Additional Activity: See attached sheets
Driving Restrictions: No driving for 24 hours
Bathing Restrictions: OK to Shower
Other Services: Cardiac Rehab
Specialty Instructions: Weigh Daily- Call MD for wt gain/loss 3 lbs overnight/5 lbs in 1 week
Stand Alone Forms: DC Instructions- Cath/EP Lab
Referrals:
[facility]. Cardiac Rehab [Outside] - 10/09/23 1:00 pm
(Cardiac Rehab Orientation appointment and� First Exercise appointment is on __Thursday10/09/23 at 1:00 pm.____
The Cardiac Rehab gym is located on the first floor of the [facility].)
[facility].Visiting Nurs [Outside]
Cielo Thomson PA-C [Specified Professional Personl] - 09/15/23 2:40 pm
Obdulio Pinto MD [Family Provider] - in one week
Rich Spencer MD [Active] - in one to two weeks
Additional Discharge Medication Instructions: -STOP taking losartan
-Start taking a lower dose of lisinopril 10 mg (1/2 of a 20 mg tablet or one 10 mg tablet) once a day
-Continue taking Plavix (clopidogrel) 75 mg once a day
-Decrease aspirin dose to 81 mg once a day
-Omeprazole has been replaced with pantoprazole
-Decrease Lasix (furosemide) to 20 mg (1/2 of a 40 mg tablet) once a day
Prescriptions:
New
pantoprazole 40 mg Tablet,Delayed Release (Dr/Ec)
40 mg PO DAILY Qty: 30 11RF
lisinopril 10 mg Tablet
10 mg PO DAILY Qty: 30 11RF
aspirin [Children's Aspirin] 81 mg Tablet,Chewable
81 mg PO DAILY Qty: 30 0RF
furosemide [Lasix] 20 mg tablet
20 mg PO DAILY Qty: 30 0RF
Continued
primidone 50 mg Tablet
100 mg PO BID
cyanocobalamin (vitamin B-12) 1,000 mcg Tablet
1,000 mcg PO DAILY
clopidogrel 75 mg Tablet
75 mg PO DAILY
tamsulosin 0.4 mg Capsule
0.4 mg PO DAILY
insulin aspart U-100 [Novolog U-100 Insulin aspart] 100 unit/mL Solution
0 sliding scale dose SC DIRECTED
Patient Comments:
08/28/2023, pt. unsure of sliding scale.
hydralazine 100 mg Tablet
100 mg PO TID
bupropion HCl 75 mg Tablet
150 mg PO DAILY
bupropion HCl 75 mg Tablet
75 mg PO HS
omeprazole 20 mg Capsule,Delayed Release(Dr/Ec)
20 mg PO DAILY
mirtazapine 15 mg Tablet
7.5 mg PO HS
carbidopa-levodopa 25-100 mg Tablet
2 tab PO TID
finasteride 5 mg Tablet
5 mg PO DAILY
buspirone 15 mg Tablet
30 mg PO HS
escitalopram oxalate 10 mg Tablet
30 mg PO DAILY
rosuvastatin 40 mg Tablet
40 mg PO HS
empagliflozin 25 mg Tablet
12.5 mg PO DAILY
Changed
Levemir U-100 Insulin 100 unit/mL Solution
60 unit SC HS Qty: 0 0RF
Discontinued
losartan 50 mg Tablet
25 mg PO DAILY
furosemide 40 mg Tablet
40 mg PO DAILY
aspirin 325 mg Tablet
325 mg PO DAILY
lisinopril 20 mg Tablet
20 mg PO DAILY
Discharge Orders:
Discharge Patient (As Directed); Ordered 09/02/23
Ordered By: Emmanuel Whitlock
Care Plan Goals
Care Plan Goals:
Problem: Readiness for enhanced knowledge related to diagnosis and treatment plan
Goal: Understand your diagnosis and treatment plan needs, including medications if applicable.
Instructions: Know your diagnosis, underlying causes and treatment plan options, including medications if applicable. Consult with your health care team to learn about your diagnosis and treatment plan, including medications if applicable.
Discharge Date and Time
Discharge Date/Time: 09/02/23 20:00
Print Language: DANISH
== END 2023-09-02 20:00 | disposition home health service (06) | DRG 322 ==
LOC: IVU 11:09
PROVIDERS: Internal Medicine Cardiovascular Disease; Nurse Practitioner; Nurse Practitioner Adult Health; Physician Assistant; Student in an Organized Health Care Education/Training Program; ADMITTING PHYSICIAN Hospitalist; ATTENDING PHYSICIAN Hospitalist; CONSULT PHYSICIAN Thoracic Surgery (Cardiothoracic Vascular Surgery); CONSULT PHYSICIAN Urology; EMERGENCY PHYSICIAN Emergency Medicine; FAMILY PHYSICIAN Family Medicine; OTHER PHYSICIAN Internal Medicine Interventional Cardiology
PROC: 4A023N7 Measurement of Cardiac Sampling and Pressure, Left Heart, Percutaneous Approach (ICD-10-PCS; 2023-08-28)
PROC: B2151ZZ Fluoroscopy of Left Heart using Low Osmolar Contrast (ICD-10-PCS; 2023-08-28)
PROC: B2111ZZ Fluoroscopy of Multiple Coronary Arteries using Low Osmolar Contrast (ICD-10-PCS; 2023-08-28)
PROC: 027034Z Dilation of Coronary Artery, One Artery with Drug-eluting Intraluminal Device, Percutaneous Approach (ICD-10-PCS; 2023-08-31)
DX: I21.4 Non-ST elevation (NSTEMI) myocardial infarction (principal); E87.1 Hypo-osmolality and hyponatremia; Z87.891 Personal history of nicotine dependence; D64.9 Anemia, unspecified; N18.30 Chronic kidney disease, stage 3 unspecified; I12.9 Hypertensive chronic kidney disease with stage 1 through stage 4 chronic kidney disease, or unspecified chronic kidney disease; G20.A1 Parkinson's disease without dyskinesia, without mention of fluctuations; E11.22 Type 2 diabetes mellitus with diabetic chronic kidney disease; Z79.4 Long term (current) use of insulin; F32.A Depression, unspecified; K59.09 Other constipation; F43.10 Post-traumatic stress disorder, unspecified; G47.33 Obstructive sleep apnea (adult) (pediatric); I25.10 Atherosclerotic heart disease of native coronary artery without angina pectoris; I35.0 Nonrheumatic aortic (valve) stenosis; Z79.02 Long term (current) use of antithrombotics/antiplatelets; Z86.73 Personal history of transient ischemic attack (TIA), and cerebral infarction without residual deficits
CPT/HCPCS: 51798; 74176; 80048; 80053; 80061; 82962; 83036; 83690; 83735; 83880; 84484; 85014; 85018; 85025; 85027; 85347; 85610; 90677; 93005; 93306; 93454; 96374; 99285; C1725; C1769; C1874; C1894; C9600; G0009; Q9950; Q9967

== ENCOUNTER 2023-09-26 02:21 | Inpatient (IN) | payer OTHER, SELFPAY ==
[2023-09-25 23:21] VITALS: BP 110/61
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
[2023-09-25 23:42] VITALS: BP 137/58
[2023-09-25] MEDS: NITROSTAT (SUBLINGUAL) 0.400000000000000022 MG SL (23:49)
[2023-09-25 23:52] LABS: % Basophils 0.5 % (0-2); % Eosinophils 4.7 % (0-6); % Immature Granulocytes 0.4 % (0-0.5); % Monocytes 8.1 % (1.7-9.3); % Neutrophils 54.3 % (42.2-75.2); Absolute Eosinophils 0.4 10^3/uL (0-0.7); Absolute Lymphocytes 2.4 10^3/uL (1.2-3.4); Absolute Monocytes 0.6 10^3/uL (0.1-0.6); Absolute Neutrophils 4.1 10^3/uL (1.4-6.5); Hematocrit 35.3 % (39.0-52.0); Hemoglobin 11.9 g/dL (13.0-18.0); Mean Corp Hgb Conc. 33.7 g/dL (33.0-37.0); Mean Corpuscular Hgb 28.3 pg (27.0-31.0); Mean Platelet Volume 9.7 fL (7.4-10.4); Nucleated Red Blood Cells % 0 % (-); Platelet Count 235 10^3/uL (130-400); Red Cell Dist. Width 14.5 % (11.5-14.5); White Blood Cell Count 7.6 10^3/uL (4.8-10.8)
[2023-09-26] VITALS (11 sets, daily range): BP systolic 109–151; BP diastolic 49–77; PULSE 2–65; O2SAT 94; BMI 31.4
[2023-09-26 00:14] LABS: ALT (SGPT) < 10 U/L (0-50); AST (SGOT) 28 U/L (17-59); Albumin 4.4 g/dl (3.5-5.0); Alkaline Phosphatase 106 U/L (38-126); Blood Urea Nitrogen 34 mg/dl (9-20); Calcium 9.1 mg/dl (8.4-10.2); Carbon Dioxide 31 mmol/L (22-30); Chloride 97 mmol/L (98-107); Glucose 51 mg/dl (70-99); Potassium 3.5 mmol/L (3.5-5.1); Sodium 133 mmol/L (135-145); Total Bilirubin 0.3 mg/dl (0.2-1.3); eGFR 37.82
[2023-09-26 00:27] LABS: Troponin I 0.059 ng/ml
[2023-09-26 01:07] LABS: Glucose - Point of Care 100 mg/dl (70-99)
--- NOTE | 2023-09-26 01:21 | HPS.HSE ---
Family Physician
-
Family Physician: Denise Mistry
Chief Complaint
-
Chest pain
History of Present Illness
This is a 78-year-old male with a past medical history that significant for CAD status post PCI with stenting of the mid RCA 1 month ago who now presents again with intermittent chest pain over the last 2 days.
Patient has history significant for diabetes on insulin, hypertension, hyperlipidemia, LISA on BiPAP, GERD who was recently admitted to the hospital for chest pain found to have NSTEMI. He underwent PCI with stenting to the mid right coronary with
residual disease noted in the circumflex and LAD that may be amenable to stenting. Patient was placed on dual antiplatelet therapy. Initial troponin on that admission was 0.2. Patient had admission that was complicated by urinary retention status
post placement of indwelling catheter. He still has indwelling catheter. He reports that he was chest pain-free up until at least 2 days ago when he reported intermittent chest pain that is located in the left chest. He denies any radiation.
There is mild shortness of breath and mild nausea. He denies any diaphoresis. Chest pain typically last about 1 hour before resolving. He denies any exacerbating or relieving factors.
He denied any other symptoms.
On arrival in the emergency department the patient was hemodynamically stable and he appears in no acute distress except for intermittent chest pain. His initial troponin was 0.059, the EKG shows sinus rhythm at a rate of 71 1st degree AV block and
known right bundle without any acute ST or T wave changes. CBC was unremarkable. Chemistries notable for a glucose of 51. Recieved sl-ntg with moderate improvement in chest pain.
Medical History
Past Medical History
Past Medical History: Reports CAD and IDDM
Additional Past Medical History:
CAD s/p NSTEMI, PCI to mid RCA
HLD
HTN
GERD
Parkinsons
LISA on BIPAP
BPH, Urinary retention
Past Surgical History: Reports None
Social History
Tobacco: Former Smoker
Alcohol: None
Drug: None
Personal:
Living: With Family
Employment: Retired
Family History
Family History: Not pertinent
Allergies / Home Medications
Allergies reflects when Allergies were last updated in [facility].
Home Medications with original date entered in [facility]
Allergy/Medication List:
Allergies
Allergy/AdvReac Type Severity Reaction Status Date / Time
No Known Allergies Allergy Verified 08/28/23 05:29
Home Medications
bupropion HCl 75 mg tablet 75 mg PO HS Mental Health 08/28/23
bupropion HCl 75 mg tablet 150 mg PO DAILY Mental Health 08/28/23
buspirone 15 mg tablet 30 mg PO HS Mental Health 08/28/23
carbidopa 25 mg-levodopa 100 mg tablet 2 tab PO TID Neurological Condition 08/28/23
clopidogrel 75 mg tablet 75 mg PO DAILY Blood Clot Prevention/Tx 08/28/23
cyanocobalamin (vitamin B-12) 1,000 mcg tablet 1,000 mcg PO DAILY Supplement 08/28/23
empagliflozin 25 mg tablet 12.5 mg PO DAILY Diabetes 08/28/23
escitalopram oxalate 10 mg tablet 30 mg PO DAILY Mental Health 08/28/23
finasteride 5 mg tablet 5 mg PO DAILY prostate issue 08/28/23
hydralazine 100 mg tablet 100 mg PO TID Blood Pressure 08/28/23
insulin aspart U-100 100 unit/mL subcutaneous solution (Novolog U-100 Insulin aspart) 0 sliding scale dose SC DIRECTED Diabetes 08/28/23
mirtazapine 15 mg tablet 7.5 mg PO HS Mental Health/Anxiety 08/28/23
omeprazole 20 mg capsule,delayed release 20 mg PO DAILY Gastrointestinal Issue 08/28/23
primidone 50 mg tablet 100 mg PO BID movement disorder 08/28/23
rosuvastatin 40 mg tablet 40 mg PO HS hg 08/28/23
tamsulosin 0.4 mg capsule 0.4 mg PO DAILY Urinary Issue 08/28/23
aspirin 81 mg chewable tablet (Children's Aspirin) 81 mg PO DAILY Heart disease/condition #30 tabs 09/01/23
furosemide 20 mg tablet (Lasix) 20 mg PO DAILY Fluid retention/Swelling #30 tabs 09/01/23
insulin detemir U-100 100 unit/mL subcutaneous solution (Levemir U-100 Insulin) 60 unit (0.6 mL) SC HS Diabetes #0 mL 09/01/23
lisinopril 10 mg tablet 10 mg PO DAILY Heart disease/condition #30 tabs 09/01/23
pantoprazole 40 mg tablet,delayed release 40 mg PO DAILY Gastrointestinal issue #30 tabs 09/01/23
Review of Systems
-
History Source: Patient
Constitutional: Reports No Symptoms
EENT: Reports No Symptoms
Respiratory: Reports No Symptoms
Cardiac: Reports Chest Pain
Abdomen/GI: Reports No Symptoms
: Reports No Symptoms
Musculoskeletal: Reports No Symptoms
Skin: Reports No Symptoms
Neurological: Reports No Symptoms
Endocrine: Reports No Symptoms
Hematologic/Lymphatic: Reports No Symptoms
Psych: Reports No Symptoms
Physical Exam
Vital Signs
Vital Signs
Temp Pulse Resp BP Pulse Ox
97.8 F 66 16 118/49 94
09/25/23 23:21 09/26/23 00:30 09/26/23 00:30 09/26/23 00:00 09/26/23 00:30
Physical Exam
General: No Apparent Distress
HEENT: NormoCephalic, Anicteric, Moist mucous membranes, Atraumatic and PERRLA
Respiratory: Clear
Cardiac: S1/S2 and Regular Rhythm
Breast: Deferred by me
GI: Soft, Non Tender, Non Distended and Normal Bowel Sounds
Rectal: Deferred by Provider
Genito-urinary: Rod
Musculoskeletal: No Clubbing, No Cyanosis and No Edema
Skin: Warm
Neuro: AO x 3 and Tremors (resting tremors)
Hematologic/Lymphatic: No Lymphadenopathy
Psych: Calm
Laboratory Results
-
09/25/23 23:45
09/25/23 23:45
Laboratory Results
Total Bilirubin 0.3 mg/dl (0.2-1.3) 09/25/23 23:45
AST 28 U/L (17-59) 09/25/23 23:45
ALT < 10 U/L (0-50) 09/25/23 23:45
Alkaline Phosphatase 106 U/L (38-126) 09/25/23 23:45
Troponin I 0.059 ng/ml H* 09/25/23 23:45
Data Reviewed
-
Diagnostic Radiology: Image Personally Visualized and interpreted
Medical Tests (Nuc Med, Echo, EKG etc): Image Personally Visualized and interpreted
Lab Data: Labs Reviewed by me
Old Records: Reviewed
Impression/Plan
-
IMPRESSION:
PLAN:
1. Chest pain - Patient with h/o CAD s/p PCI with stent to RCA and known residual L-Circ and LAD disease presents with intermittent chest pain without exertional component. Non-radiating, pressure like sensation lasting 1 - 2 hours with associated
SOB and mild nausea. ECG unchanged from prior w/o acute ischemia. Troponin 0.054 which is down from 0.2 in last admission. Chest Xray w/o infiltrates. No NSTEMI at this time but possibly unstable angina.
- admit to telemetry
- cycle cardiac enzymes
- continue statin and DAPT, no AC for now
- NTG prn chest pain
- echo in am
- cardiology consultation
2. DM II - Hypoglycemic here today.
- give dextrose 1/2 amp
- restart lower dose of levemir/lantus (40 units HS instead of 70)
- moderate sliding scale
- hold empagliflozin
3. Urinary retention - s/p indwelling folew w/ failure of voiding trial
- renal function is stable.
- continue tamsulosin & finasteride
4. Parkinson
- carbidopa levidopa
- primidone 100 bid
5. LISA
- BIPAP HS
6. GERD
- ppi daily
7. CKD - Mild rise in cr to 1.8 from baseline of 1.4. Urinary catheter in place.
- hold lasix
- continue lisinopril 10
DVT PPX with lovenox sq
Full code
[2023-09-26] MEDS: DEXTROSE 50% SYRINGE 12.5 GRAMS IV (02:15)
[2023-09-26 02:48] LABS: Glucose - Point of Care 134 mg/dl (70-99)
--- NOTE | 2023-09-26 03:00 | PTCARENOTE ---
Pt transferred from ED. Pt ambulated into room with assistance. Pt oriented to unit, call [facility] within reach. Will continue with current plan.
[2023-09-26 04:21] LABS: Troponin I 0.063 ng/ml
--- NOTE | 2023-09-26 07:55 | W.PN.HOSP.TC ---
Today's Communication/Plan
-
see bold
Assessment / Plan
Assessment / Plan
HPI: 78-year-old male with a past medical history that significant for CAD status post PCI with stenting of the mid RCA 1 month ago who now presents again with intermittent chest pain over the last 2 days.
1. Chest pain
H/o CAD s/p PCI with stent to RCA and known residual L-Circ and LAD disease presents with intermittent chest pain without exertional component.
ECG unchanged from prior w/o acute ischemia. Troponin 0.054 which is down from 0.2 in last admission.
Chest Xray w/o infiltrates. No NSTEMI at this time but possibly unstable angina.
Appreciate cardiology input, started on Imdur 30 mg daily
Continue aspirin, Plavix, statin, beta-mirna
Monitor overnight
2. DM II - Hypoglycemic
Status post dextrose
Patient takes Levemir 60 units at night
Reduced to 35 units at night, sliding scale insulin
Continue empagliflozin, continue to monitor blood sugars
3. Urinary retention - s/p indwelling folew w/ failure of voiding trial
Continue Camargo, Flomax, finasteride
4. Parkinson
Continue Sinemet and primidone 100 bid
5. LISA
BIPAP HS
6. GERD
Continue PPI
7. Stage IIIa chronic kidney disease
Creatinine 1.5 at baseline, resume Lasix
8. Anxiety/depression
Continue Lexapro, bupropion, buspirone, Remeron
9. Benign essential hypertension
Continue hydralazine 100 mg 3 times daily
DVT prophylaxis�subcu Lovenox
Full code
Total time spent to see the patient on the floor, examine the patient, review data and lab results, discuss treatment plan with patient, nursing staff around 50 minutes.
Physical Exam
General: Morbidly obese, no acute distress
HEENT: Normocephalic, Atraumatic, EOMI, MMM
Respiratory: Clear to Auscultation bilaterally
Cardiac: Normal S1/S2, Regular Rate and Rhythm
GI: Soft, Nontender, Nondistended, Normal Bowel Sounds
: +chronic camarog
Extremities: No Clubbing, Cyanosis, or Edema
Neuro: Nonfocal/Grossly Intact
Psych: Calm, Cooperative
Derm: No Visible lesions
Anticipated Discharge: Within 24 hours
Subjective/Interval History
-
Date of Service: September 26, 2023
Chest pain resolved. No shortness of breath. No nausea, no vomiting. No fever.
Objective Data
-
Labs:
Laboratory Results
09/25/23 09/26/23
23:45 05:57
WBC 7.6 Pending
Hgb 11.9 L Pending
Hct 35.3 L Pending
Plt Count 235 Pending
Sodium 133 L Pending
Potassium 3.5 Pending
Chloride 97 L Pending
Carbon Dioxide 31 H Pending
BUN 34 H Pending
Creatinine 1.8 H Pending
Glucose 51 L* Pending
Calcium 9.1 Pending
Total Bilirubin 0.3
AST 28
ALT < 10
Alkaline Phosphatase 106
Vital Signs:
Vital Signs
Temp Pulse Resp BP Pulse Ox
98.1 F 62 16 151/77 97
09/26/23 02:51 09/26/23 02:51 09/26/23 02:51 09/26/23 02:51 09/26/23 02:51
I&O
09/25/23 09/26/23 09/27/23
06:59 06:59 06:59
Output Total 400 / 400
Balance -400 / -400
[2023-09-26 08:09] LABS: Hematocrit 32.3 % (39.0-52.0); Hemoglobin 10.6 g/dL (13.0-18.0); Mean Corp Hgb Conc. 32.8 g/dL (33.0-37.0); Mean Corpuscular Hgb 28.3 pg (27.0-31.0); Mean Corpuscular Volume 86.4 fL (80.0-94.0); Mean Platelet Volume 10.3 fL (7.4-10.4); Platelet Count 211 10^3/uL (130-400); Red Blood Cell Count 3.74 10^6/uL (4.70-6.10); Red Cell Dist. Width 14.5 % (11.5-14.5)
--- NOTE | 2023-09-26 08:22 | CON.CAR ---
Consultation
Consultation Request
Date/Time Consultation Requested: 09/26/2023 0049
Date/Time Consultation Performed: 09/26/2023 0630
Requesting Provider: Vincenzo Orellana
Performing Provider: Jose Antonio Emery DO
Reason for Consultation: CP
Medical History
-
Chief Complaint: CP
History of Present Illness:
Patient is a 78-year-old male with a past medical history significant for hypertension, hyperlipidemia, diabetes mellitus type 2, history of TIA, LISA on BiPAP, Parkinson's, BPH, former smoker, mild to moderate aortic stenosis (mean gradient 19 mmHg
08/28/2023), multivessel CAD status post PCI to RCA 08/31/2023 with residual LAD, circumflex lesions treated medically who presents to ER due to 1 week of chest discomfort. In discussion with patient, he reports that he is experienced discomfort
similar to his chest pain he experienced prior to admission in July as a tightness sensation in the chest. In discussion with patient he cannot accurately describe whether this occurs at rest or with exertion but note that with BiPAP and
nitroglycerin it has resolved his pain. In evaluation of patient this morning, he denies any chest pain, shortness of breath, lightheadedness, dizziness, near-syncope, syncope, PND, orthopnea, edema, or weakness. Patient reports that he is not
very active at home and has not participated in cardiac rehab as of yet. Patient has no other complaints at this time. Patient reports adherence to medications. In emergency department, patient hemodynamically stable initial troponin 0.059 with
EKG sinus rhythm first-degree AV block right bundle branch block without significant ST-T abnormality (no prior change compared to previous ECG). Remaining workup in the emergency department unremarkable.
Past Medical History
Past Medical History: None (Noted in HPI)
Social History
Tobacco: Former Smoker
Alcohol: None
Drug: None
Personal:
Living: With Family
Employment: Retired
Family History
Family History: Reviewed & Not Pertinent
Allergies / Home Medications
Allergy/AdvReac Type Severity Reaction Status Date / Time
No Known Allergies Allergy Verified 08/28/23 05:29
�Medication �Instructions �Recorded �Confirmed �Type
bupropion HCl 75 mg tablet 75 mg PO HS Mental Health 08/28/23 08/28/23 History
bupropion HCl 75 mg tablet 150 mg PO DAILY Mental Health 08/28/23 08/28/23 History
buspirone 15 mg tablet 30 mg PO HS Mental Health 08/28/23 08/28/23 History
carbidopa 25 mg-levodopa 100 mg 2 tab PO TID Neurological Condition 08/28/23 08/28/23 History
tablet
clopidogrel 75 mg tablet 75 mg PO DAILY Blood Clot 08/28/23 08/28/23 History
Prevention/Tx
cyanocobalamin (vitamin B-12) 1,000 mcg PO DAILY Supplement 08/28/23 08/28/23 History
1,000 mcg tablet
empagliflozin 25 mg tablet 12.5 mg PO DAILY Diabetes 08/28/23 08/28/23 History
escitalopram oxalate 10 mg tablet 30 mg PO DAILY Mental Health 08/28/23 08/28/23 History
finasteride 5 mg tablet 5 mg PO DAILY prostate issue 08/28/23 08/28/23 History
hydralazine 100 mg tablet 100 mg PO TID Blood Pressure 08/28/23 08/28/23 History
insulin aspart U-100 100 unit/mL 0 sliding scale dose SC 08/28/23 08/28/23 History
subcutaneous solution (Novolog DIRECTED Diabetes
U-100 Insulin aspart)
mirtazapine 15 mg tablet 7.5 mg PO HS Mental Health/Anxiety 08/28/23 08/28/23 History
omeprazole 20 mg capsule,delayed 20 mg PO DAILY Gastrointestinal 08/28/23 08/28/23 History
release Issue
primidone 50 mg tablet 100 mg PO BID movement disorder 08/28/23 08/28/23 History
rosuvastatin 40 mg tablet 40 mg PO HS hg 08/28/23 08/28/23 History
tamsulosin 0.4 mg capsule 0.4 mg PO DAILY Urinary Issue 08/28/23 08/28/23 History
aspirin 81 mg chewable tablet 81 mg PO DAILY Heart 09/01/23 Rx
(Children's Aspirin) disease/condition #30 tabs
furosemide 20 mg tablet (Lasix) 20 mg PO DAILY Fluid 09/01/23 Rx
retention/Swelling #30 tabs
insulin detemir U-100 100 unit/mL 60 unit (0.6 mL) SC HS Diabetes #0 09/01/23 08/28/23 Rx
subcutaneous solution (Levemir mL
U-100 Insulin)
lisinopril 10 mg tablet 10 mg PO DAILY Heart 09/01/23 Rx
disease/condition #30 tabs
pantoprazole 40 mg tablet,delayed 40 mg PO DAILY Gastrointestinal 09/01/23 Rx
release issue #30 tabs
Review of Systems
-
History Source: Patient
All other systems: Negative unless noted
Constitutional: No Symptoms
EENT: No Symptoms
Respiratory: No Symptoms
Cardiac: Chest Pain
Abdomen/GI: No Symptoms
: No Symptoms
Musculoskeletal: No Symptoms
Skin: No Symptoms
Neurological: No Symptoms
Endocrine: No Symptoms
Hematologic/Lymphatic: No Symptoms
Physical Exam
Vital Signs
Temp Pulse Resp BP Pulse Ox
98.1 F 62 16 151/77 97
09/26/23 02:51 09/26/23 02:51 09/26/23 02:51 09/26/23 02:51 09/26/23 02:51
Lab Results
Troponin I 0.063 ng/ml H* 09/26/23 03:33
Physical Exam
General: Well Developed, Well Nourished, No Apparent Distress and Comfortable (On BiPAP)
HEENT: Normocephalic, Anicteric and Moist Mucous Membranes
Respiratory: Clear and Non Labored Respirations
Cardiac: S1/S2 and Regular Rhythm
Breast: Deferred by me
GI: Soft, Non Tender, Non Distended and Normal Bowel Sounds
Rectal: Deferred by Provider
Musculoskeletal: No Clubbing, No Cyanosis and No Edema
Skin: Warm and Dry
Neuro: Awake, Alert and Oriented
Psych: Calm
Impression / Plan
-
PCP: Valencia Peralta MD
Primary Sugar Mill Worker: Dr. Robles (previously followed at [facility])
Assessment:
Chest pain
Non-FL troponin elevation
CAD
08/31/2023 PCI to mid RCA; residual tandem 60 to 70% mid LAD lesion, 80% proximal circumflex lesions medically managed; recommendation if recurrent symptoms may return to Learning And Development Specialist
Mild to moderate aortic stenosis mean gradient 19 mmHg (08/28/2023)
Diabetes mellitus type 2
Hypertension, poorly controlled
BPH
Parkinson's
Bifascicular block
Hyperlipidemia
History of TIA 2015
Sleep apnea on BiPAP
Former smoker
Chronic anemia
Recommendations:
� Continue dual antiplatelet with aspirin Plavix, high intensity statin; no beta-mirna due to bradycardia; will start Imdur for symptom control
� Monitor on telemetry
� If continued/recurrent symptoms despite increasing medical therapy, may benefit from left heart catheterization
� Repeat troponin to ensure downtrending
� Continue BiPAP for sleep apnea treatment
� Repeat electrolytes as needed goal K greater than 4, mag greater than 2
Data Reviewed
-
EKG: Report Reviewed by me
Radiology: Report Reviewed by me
Medical Tests (Nuc Med, Echo etc): Report Reviewed by me
Labs: Labs Reviewed by me
Old Records: Reviewed
[2023-09-26 08:24] LABS: Troponin I 0.062 ng/ml
[2023-09-26 08:28] LABS: Glucose - Point of Care 61 mg/dl (70-99)
[2023-09-26] MEDS: NOVOLOG FLEXPEN-MODERATE RESISTANCE SC (08:31)
[2023-09-26] MEDS: LOW STRENGTH ASPIRIN 81 MG PO (08:33)
[2023-09-26] MEDS: WELLBUTRIN REGULAR RELEASE 150 MG PO (08:33)
[2023-09-26] MEDS: LEXAPRO 30 MG PO (08:33)
[2023-09-26] MEDS: APRESOLINE 100 MG PO ×3 (08:35→21:57)
[2023-09-26] MEDS: MYSOLINE 100 MG PO ×2 (08:37→21:58)
[2023-09-26] MEDS: ZESTRIL 10 MG PO (08:37)
[2023-09-26] MEDS: PROTONIX 40 MG PO (08:37)
[2023-09-26] MEDS: FLOMAX 0.400000000000000022 MG PO (08:37)
[2023-09-26] MEDS: PLAVIX 75 MG PO (08:37)
[2023-09-26] MEDS: VITAMIN B-12 1000 MCG PO (08:37)
[2023-09-26] MEDS: SINEMET 25-100 2 TABLET PO ×3 (08:38→21:58)
[2023-09-26] MEDS: PROSCAR 5 MG PO (08:38)
[2023-09-26] MEDS: IMDUR (EXTENDED RELEASE) 30 MG PO (08:45)
[2023-09-26 08:50] LABS: Glucose - Point of Care 84 mg/dl (70-99)
[2023-09-26 08:54] LABS: Blood Urea Nitrogen 32 mg/dl (9-20); Calcium 8.8 mg/dl (8.4-10.2); Carbon Dioxide 27 mmol/L (22-30); Chloride 99 mmol/L (98-107); Estimated Creatinine Clearance 42 ml/min; Glucose 47 mg/dl (70-99); Potassium 3.5 mmol/L (3.5-5.1); Sodium 134 mmol/L (135-145); eGFR 47.06
[2023-09-26 10:54] LABS: Glucose - Point of Care 272 mg/dl (70-99)
[2023-09-26 11:37] LABS: Magnesium 2.4 mg/dl (1.6-2.3)
--- NOTE | 2023-09-26 11:46 | PTCARENOTE ---
Assumed care of pt from previous nurse. pt denies pain. pt is on tele running nsr, first degree hb, bbb. Pt denies chest pain. pt has a loop recorder present, [facility] Pt call [facility] is within reach, pt rings brittny. will cont to monitor. Pt
camargo draining clear yellow urine.
[2023-09-26] MEDS: KCL 40 MEQ PO (11:51)
[2023-09-26 12:40] LABS: Glucose - Point of Care 206 mg/dl (70-99)
[2023-09-26] MEDS: NOVOLOG FLEXPEN-MODERATE RESISTANCE 3 UNITS SC (13:21)
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
[2023-09-26 16:43] LABS: Glucose - Point of Care 190 mg/dl (70-99)
[2023-09-26] MEDS: NOVOLOG FLEXPEN-MODERATE RESISTANCE 1 UNITS SC (17:26)
[2023-09-26] MEDS: LOVENOX 40 MG SC (17:27)
[2023-09-26 21:55] LABS: Glucose - Point of Care 178 mg/dl (70-99)
[2023-09-26] MEDS: REMERON 7.5 MG PO (21:59)
[2023-09-26] MEDS: WELLBUTRIN REGULAR RELEASE 75 MG PO (21:59)
[2023-09-26] MEDS: CRESTOR 40 MG PO (21:59)
[2023-09-26] MEDS: BUSPAR 30 MG PO (21:59)
[2023-09-26] MEDS: LEVEMIR 0.349999999999999978 UNITS SC (21:59)
[2023-09-27] VITALS: PULSE 2; PULSE 60
[2023-09-27 03:15] LABS: Glucose - Point of Care 114 mg/dl (70-99)
[2023-09-27 03:20] VITALS: BP 120/62
[2023-09-27 03:57] VITALS: PULSE 2
[2023-09-27 06:00] VITALS: BMI 31.5
[2023-09-27 07:00] VITALS: BP 144/75
[2023-09-27 07:03] LABS: Blood Urea Nitrogen 34 mg/dl (9-20); Calcium 9.1 mg/dl (8.4-10.2); Carbon Dioxide 28 mmol/L (22-30); Chloride 102 mmol/L (98-107); Estimated Creatinine Clearance 45 ml/min; Glucose 69 mg/dl (70-99); Potassium 4.1 mmol/L (3.5-5.1); Sodium 136 mmol/L (135-145); eGFR 51.13
[2023-09-27 07:12] LABS: Hematocrit 33.6 % (39.0-52.0); Hemoglobin 10.9 g/dL (13.0-18.0); Mean Corp Hgb Conc. 32.4 g/dL (33.0-37.0); Mean Corpuscular Hgb 27.9 pg (27.0-31.0); Mean Corpuscular Volume 86.2 fL (80.0-94.0); Mean Platelet Volume 10.5 fL (7.4-10.4); Platelet Count 204 10^3/uL (130-400); Red Cell Dist. Width 14.8 % (11.5-14.5); White Blood Cell Count 5.3 10^3/uL (4.8-10.8)
[2023-09-27 07:37] LABS: Glucose - Point of Care 75 mg/dl (70-99)
[2023-09-27] MEDS: NOVOLOG FLEXPEN-MODERATE RESISTANCE SC (07:37)
--- NOTE | 2023-09-27 08:16 | W.PN.HOSP.TC ---
Today's Communication/Plan
-
Medically stable for discharge
Assessment / Plan
Assessment / Plan
HPI: 78-year-old male with a past medical history that significant for CAD status post PCI with stenting of the mid RCA 1 month ago who now presents again with intermittent chest pain over the last 2 days.
1. Chest pain
H/o CAD s/p PCI with stent to RCA and known residual L-Circ and LAD disease presents with intermittent chest pain without exertional component.
ECG unchanged from prior w/o acute ischemia. Troponin 0.054 which is down from 0.2 in last admission.
Chest Xray w/o infiltrates. No NSTEMI at this time but possibly unstable angina.
Appreciate cardiology input, started on Imdur 30 mg daily 09/25
Patient ambulated with PT yesterday without recurrence of chest pain
Continue aspirin, Plavix, statin, beta-mirna
Medically stable for discharge today
2. DM II - Hypoglycemic
Status post dextrose
Patient takes Levemir 60 units at night
Blood sugar 75 this morning with reducing Lantus to 35 units
Recommend he reduce his Levemir to 34 units at night upon discharge
Continue empagliflozin, continue to monitor blood sugars
3. Urinary retention - s/p indwelling folew w/ failure of voiding trial
Continue Camargo, Flomax, finasteride
4. Parkinson
Continue Sinemet and primidone 100 bid
5. LISA
BIPAP HS
6. GERD
Continue PPI
7. Stage IIIa chronic kidney disease
Creatinine 1.5 at baseline, resume Lasix
8. Anxiety/depression
Continue Lexapro, bupropion, buspirone, Remeron
9. Benign essential hypertension
Continue hydralazine 100 mg 3 times daily
DVT prophylaxis�subcu Lovenox
Full code
Physical Exam
General: Morbidly obese, no acute distress
HEENT: Normocephalic, Atraumatic, EOMI, MMM
Respiratory: Clear to Auscultation bilaterally
Cardiac: Normal S1/S2, Regular Rate and Rhythm
GI: Soft, Nontender, Nondistended, Normal Bowel Sounds
: +chronic camargo
Extremities: No Clubbing, Cyanosis, or Edema
Neuro: Nonfocal/Grossly Intact
Psych: Calm, Cooperative
Anticipated Discharge: Today
Subjective/Interval History
-
Date of Service: September 27, 2023
Patient denies lightheadedness, denies weakness, denies dizziness. His blood sugar this morning was 75. He ambulated with PT yesterday, denies chest pain. No fever, no vomiting.
Objective Data
-
Labs:
Laboratory Results
09/27/23
05:26
WBC 5.3
Hgb 10.9 L
Hct 33.6 L
Plt Count 204
Sodium 136
Potassium 4.1
Chloride 102
Carbon Dioxide 28
BUN 34 H
Creatinine 1.4 H
Glucose 69 L
Calcium 9.1
Vital Signs:
Vital Signs
Temp Pulse Resp BP Pulse Ox
97.6 F 54 16 120/62 98
09/27/23 03:20 09/27/23 03:20 09/27/23 03:20 09/27/23 03:20 09/27/23 03:20
I&O
09/26/23 09/27/23 09/28/23
06:59 06:59 06:59
Intake Total 2160 / 2160
Output Total 400 / 400 1700 / 1700
Balance -400 / -400 460 / 460
[2023-09-27] MEDS: PROSCAR 5 MG PO (08:40)
[2023-09-27] MEDS: WELLBUTRIN REGULAR RELEASE 150 MG PO (08:40)
[2023-09-27] MEDS: PROTONIX 40 MG PO (08:40)
[2023-09-27] MEDS: FLOMAX 0.400000000000000022 MG PO (08:40)
[2023-09-27] MEDS: VITAMIN B-12 1000 MCG PO (08:40)
[2023-09-27] MEDS: IMDUR (EXTENDED RELEASE) 30 MG PO (08:40)
[2023-09-27] MEDS: SINEMET 25-100 2 TABLET PO (08:40)
[2023-09-27] MEDS: LOW STRENGTH ASPIRIN 81 MG PO (08:40)
[2023-09-27] MEDS: MYSOLINE 100 MG PO (08:40)
[2023-09-27] MEDS: ZESTRIL 10 MG PO (08:40)
[2023-09-27] MEDS: LEXAPRO 30 MG PO (08:40)
[2023-09-27] MEDS: PLAVIX 75 MG PO (08:40)
[2023-09-27] MEDS: APRESOLINE 100 MG PO (08:45)
--- NOTE | 2023-09-27 10:49 | W.PN.CARDCBS ---
Today's Communication / Plan
-
No further chest pain.
Stable cardiology status for discharge on Imdur
Impression / Plan
-
PCP: Valencia Peralta MD
Primary Welfare Project Manager: Dr. Robles (previously followed at [facility])
Assessment:
Chest pain
Nonischemic myocardial injury with peak troponin of 0.063
CAD
08/31/2023 PCI to mid RCA; residual tandem 60 to 70% mid LAD lesion, 80% proximal circumflex lesions medically managed; recommendation if recurrent symptoms may return to Medical Genetics Director
Mild to moderate aortic stenosis mean gradient 19 mmHg (08/28/2023)
Diabetes mellitus type 2
Hypertension, poorly controlled
BPH
Parkinson's
Bifascicular block
Hyperlipidemia
History of TIA 2015
Sleep apnea on BiPAP
Former smoker
Chronic anemia
Recommendations:
No further chest pain with the addition of Imdur
Stable cardiology status for discharge
Discussed with primary service
Progress Note - Welfare Project Manager
Subjective
Date of Service: September 27, 2023
No chest pain or shortness of breath
Objective
Labs:
09/27/23 05:26
09/27/23 05:26
Labs
Hgb 10.9 g/dL (13.0-18.0) L 09/27/23 05:26
Hct 33.6 % (39.0-52.0) L 09/27/23 05:26
Plt Count 204 10^3/uL (130-400) 09/27/23 05:26
Sodium 136 mmol/L (135-145) 09/27/23 05:26
Potassium 4.1 mmol/L (3.5-5.1) 09/27/23 05:26
BUN 34 mg/dl (9-20) H 09/27/23 05:26
Creatinine 1.4 mg/dL (0.7-1.3) H 09/27/23 05:26
Glucose 69 mg/dl (70-99) L 09/27/23 05:26
Troponins
09/25/23 09/26/23 09/26/23
23:45 03:33 05:57
Troponin I 0.059 H* 0.063 H* 0.062 H*
Vital Signs and I&O:
Vital Signs
Temp Pulse Resp BP Pulse Ox
97.8 F 56 18 144/75 98
09/27/23 07:00 09/27/23 07:00 09/27/23 07:00 09/27/23 07:00 09/27/23 08:00
Vital Signs
Temp Pulse Resp BP Pulse Ox
97.8 F 56 18 144/75 98
09/27/23 07:00 09/27/23 07:00 09/27/23 07:00 09/27/23 07:00 09/27/23 08:00
Intake & Output
09/25/23 09/26/23 09/27/23 09/28/23
06:59 06:59 06:59 06:59
Intake Total 2160 / 2160
Output Total 400 / 400 1700 / 1700
Balance -400 / -400 460 / 460
Physical Exam
Physical Exam
General: Well developed, well nourished in NAD.
Neck: Supple, no JVD, HJR, carotids +2 B/L, no bruits bilaterally.
Heart: Non displaced PMI, RRR, no murmurs, No S3, S4, no rubs.
Lungs: Scattered rhonchi
Extremities: No clubbing, cyanosis or edema bilaterally.
Neuro: Grossly nonfocal, awake, alert and oriented x3.
[2023-09-27 11:00] VITALS: BP 145/66
[2023-09-27 11:33] LABS: Glucose - Point of Care 235 mg/dl (70-99)
[2023-09-27] MEDS: NOVOLOG FLEXPEN-MODERATE RESISTANCE 3 UNITS SC (11:40)
--- NOTE | 2023-09-27 11:52 | W.DCSUMMARY ---
Discharge Summary
Discharge Data
Date of Admission: 09/26/23
Date of Discharge: 09/27/23
-
Pending Results: No
Hospital Course
Discharge diagnoses:
Chest pain
History of coronary artery disease status post recent stent placement on 08/31/2023
Type 2 diabetes with hypoglycemia
Chronic urinary retention requiring Rod
Parkinson's disease
Obstructive sleep apnea
Gastroesophageal reflux disease
Stage IIIa chronic kidney disease
Anxiety/depression
Benign essential hypertension
Consults: Cardiology
Hospital course:
78-year-old male with a past medical history of CAD status post PCI with stenting of the mid RCA 1 month ago who now presents with intermittent chest pain over the last 2 days. Patient's troponin was 0.054 which is down from 0.2 during his last
admission. His EKG is unchanged from prior without acute ischemia. Patient was seen in conjunction with cardiology, he was started on Imdur 30 mg daily. He ambulated with physical therapy, and did not have any recurrence of chest pain.
Patient was noted to have hypoglycemia during this hospitalization. Blood sugar was 51 upon admission. He is usually on Levemir 60 units at bedtime, and novolog sliding scale insulin. Patient's Levemir was decreased to 35 units at bedtime, his
hypoglycemia resolved. His fasting blood sugar the next day was 75. He denies any symptoms. Recommend that he be discharged on Levemir 34 units at bedtime. He was instructed to further decrease his Levemir to 30 units at bedtime if his fasting
blood sugar at home is less than 80. He reports understanding.
Patient is medically stable and cleared by cardiology for discharge. He needs to follow-up with his primary care doctor in 1 week, and cardiology in 2-3 weeks.
Disposition: Home self-care
Discharge planning: Required 36 minutes
Discharge Plan
-
Patient Disposition: Home (Routine Discharge)
Discharge Diagnosis/Procedures: Chest pain, coronary artery disease, type 2 diabetes with hypoglycemia, chronic urinary retention requiring Rod, Parkinson's disease, obstructive sleep apnea, stage III chronic kidney disease
Condition: Good
Diet: Low Fat, Low Cholesterol and Diabetic, Carb Controlled
Activity: As tolerated
Driving Restrictions: As prior to admission
Activity Restrictions/Additional Instructions:
Your blood sugar was low.
Your Levemir was reduced to 34 mg nightly.
Check your blood sugar in the morning before breakfast.
If your blood sugar is less than 80, then decrease levemir to 30 units nightly.
Cardiology started you on a medication called Imdur/isosorbide mononitrate to help with your chest pain.
Please follow-up with your usual reel fed printer in the office in 2�3 weeks.
Follow-up with your primary care doctor in 1 week.
Referrals:
Denise Mistry MD [Family Provider] - in one week
Prescriptions:
New
isosorbide mononitrate 30 mg Tablet Extended Release 24 Hr
30 mg PO DAILY Qty: 30 1RF
Continued
primidone 50 mg Tablet
100 mg PO BID
cyanocobalamin (vitamin B-12) 1,000 mcg Tablet
1,000 mcg PO DAILY
clopidogrel 75 mg Tablet
75 mg PO DAILY
tamsulosin 0.4 mg Capsule
0.4 mg PO DAILY
insulin aspart U-100 [Novolog U-100 Insulin aspart] 100 unit/mL Solution
0 sliding scale dose SC DIRECTED
Patient Comments:
08/28/2023, pt. unsure of sliding scale.
hydralazine 100 mg Tablet
100 mg PO TID
bupropion HCl 75 mg Tablet
150 mg PO DAILY
bupropion HCl 75 mg Tablet
75 mg PO HS
mirtazapine 15 mg Tablet
7.5 mg PO HS
carbidopa-levodopa 25-100 mg Tablet
2 tab PO TID
finasteride 5 mg Tablet
5 mg PO DAILY
buspirone 15 mg Tablet
30 mg PO HS
escitalopram oxalate 10 mg Tablet
30 mg PO DAILY
rosuvastatin 40 mg Tablet
40 mg PO HS
empagliflozin 25 mg Tablet
12.5 mg PO DAILY
lisinopril 10 mg Tablet
10 mg PO DAILY Qty: 30 11RF
aspirin [Children's Aspirin] 81 mg Tablet,Chewable
81 mg PO DAILY Qty: 30 0RF
furosemide [Lasix] 20 mg tablet
20 mg PO DAILY Qty: 30 0RF
pantoprazole 40 mg Tablet,Delayed Release (Dr/Ec)
40 mg PO DAILY Qty: 30 11RF
Changed
Levemir U-100 Insulin 100 unit/mL Solution
34 unit SC HS Qty: 0 0RF
Discontinued
omeprazole 20 mg Capsule,Delayed Release(Dr/Ec)
20 mg PO DAILY
Discharge Orders:
Discharge Patient (As Directed); Ordered 09/27/23
Ordered By: Carlos Enrique Yates
Discharge Date and Time
Discharge Date/Time: 09/27/23 13:19
Print Language: KHMER
--- NOTE | 2023-09-27 12:27 | CM ---
Patient for d/c home today.
IMM reviewed.
Daughter will transport.
Plan: home no needs.
[2023-09-27 12:38] LABS: Glucose - Point of Care 272 mg/dl (70-99)
== END 2023-09-27 13:19 | disposition home or self-care (01) | DRG 684 ==
LOC: 4 WEST ACU 02:21
PROVIDERS: ADMITTING PHYSICIAN Internal Medicine; ATTENDING PHYSICIAN Family Medicine; CONSULT PHYSICIAN Internal Medicine Cardiovascular Disease; EMERGENCY PHYSICIAN Emergency Medicine; FAMILY PHYSICIAN Internal Medicine; REFERRING PHYSICIAN Family Medicine
DX: I12.9 Hypertensive chronic kidney disease with stage 1 through stage 4 chronic kidney disease, or unspecified chronic kidney disease (principal); Z87.891 Personal history of nicotine dependence; E11.22 Type 2 diabetes mellitus with diabetic chronic kidney disease; E11.649 Type 2 diabetes mellitus with hypoglycemia without coma; R33.8 Other retention of urine; N40.1 Benign prostatic hyperplasia with lower urinary tract symptoms; G47.33 Obstructive sleep apnea (adult) (pediatric); K21.9 Gastro-esophageal reflux disease without esophagitis; N18.31 Chronic kidney disease, stage 3a; F43.10 Post-traumatic stress disorder, unspecified; F32.A Depression, unspecified; G20.A1 Parkinson's disease without dyskinesia, without mention of fluctuations
CPT/HCPCS: 71046; 80048; 80053; 82962; 83735; 84484; 85025; 85027; 93005; 94660; 97162; 99285

== ENCOUNTER 2023-10-30 15:03 | Outpatient (RCR) | payer OTHER, SELFPAY ==
[2023-10-16 14:34] LABS: Glucose - Point of Care 98 mg/dl (70-99)
[2023-10-16 14:57] LABS: Glucose - Point of Care 105 mg/dl (70-99)
[2023-10-16 15:29] LABS: Glucose - Point of Care 111 mg/dl (70-99)
[2023-10-23 15:02] LABS: Glucose - Point of Care 136 mg/dl (70-99)
[2023-10-30 14:46] LABS: Glucose - Point of Care 187 mg/dl (70-99)
[2023-10-30 15:24] LABS: Glucose - Point of Care 164 mg/dl (70-99)
== END 2023-10-30 23:59 | disposition home or self-care (01) ==
LOC: CRHB 15:03
PROVIDERS: ATTENDING PHYSICIAN Internal Medicine Cardiovascular Disease
DX: Z95.5 Presence of coronary angioplasty implant and graft (principal); I25.10 Atherosclerotic heart disease of native coronary artery without angina pectoris
CPT/HCPCS: 82962; G0422; G0423

== ENCOUNTER 2023-11-27 15:40 | Outpatient (RCR) | payer OTHER, SELFPAY ==
[2023-11-06 14:44] LABS: Glucose - Point of Care 95 mg/dl (70-99)
[2023-11-06 15:01] LABS: Glucose - Point of Care 102 mg/dl (70-99)
[2023-11-06 15:58] LABS: Glucose - Point of Care 143 mg/dl (70-99)
[2023-11-13 14:42] LABS: Glucose - Point of Care 288 mg/dl (70-99)
[2023-11-13 15:23] LABS: Glucose - Point of Care 204 mg/dl (70-99)
[2023-11-20 14:41] LABS: Glucose - Point of Care 186 mg/dl (70-99)
[2023-11-20 15:23] LABS: Glucose - Point of Care 120 mg/dl (70-99)
[2023-11-27 15:00] LABS: Glucose - Point of Care 216 mg/dl (70-99)
[2023-11-27 15:54] LABS: Glucose - Point of Care 138 mg/dl (70-99)
== END 2023-11-27 23:59 | disposition home or self-care (01) ==
LOC: CRHB 15:40
PROVIDERS: ATTENDING PHYSICIAN Internal Medicine Cardiovascular Disease
DX: I25.2 Old myocardial infarction (principal); Z95.5 Presence of coronary angioplasty implant and graft
CPT/HCPCS: 82962; G0422; G0423

== ENCOUNTER 2023-12-25 14:50 | Outpatient (RCR) | payer OTHER, SELFPAY ==
[2023-12-11 14:49] LABS: Glucose - Point of Care 209 mg/dl (70-99)
[2023-12-11 15:37] LABS: Glucose - Point of Care 158 mg/dl (70-99)
[2023-12-18 14:43] LABS: Glucose - Point of Care 168 mg/dl (70-99)
[2023-12-18 15:38] LABS: Glucose - Point of Care 139 mg/dl (70-99)
[2023-12-25 14:43] LABS: Glucose - Point of Care 179 mg/dl (70-99)
[2023-12-25 15:29] LABS: Glucose - Point of Care 155 mg/dl (70-99)
== END 2023-12-25 23:59 | disposition home or self-care (01) ==
LOC: CRHB 14:50
PROVIDERS: ATTENDING PHYSICIAN Internal Medicine Cardiovascular Disease; FAMILY PHYSICIAN Family Medicine
DX: I25.10 Atherosclerotic heart disease of native coronary artery without angina pectoris (principal); Z95.5 Presence of coronary angioplasty implant and graft; I25.2 Old myocardial infarction
CPT/HCPCS: 82962; G0422; G0423

== ENCOUNTER 2024-01-22 15:01 | Outpatient (RCR) | payer OTHER, SELFPAY ==
[2024-01-08 14:38] LABS: Glucose - Point of Care 198 mg/dl (70-99)
[2024-01-08 15:31] LABS: Glucose - Point of Care 163 mg/dl (70-99)
== END 2024-01-22 23:59 | disposition home or self-care (01) ==
LOC: CRHB 15:01
PROVIDERS: ATTENDING PHYSICIAN Internal Medicine Cardiovascular Disease; FAMILY PHYSICIAN Family Medicine
DX: I25.10 Atherosclerotic heart disease of native coronary artery without angina pectoris (principal); Z95.5 Presence of coronary angioplasty implant and graft; I25.2 Old myocardial infarction
CPT/HCPCS: 82962; G0422; G0423

== ENCOUNTER 2024-02-05 14:38 | Outpatient (RCR) | payer OTHER, SELFPAY | END 2024-02-05 23:59 | disposition home or self-care (01) | LOC: CRHB 14:38 | PROVIDERS: ATTENDING PHYSICIAN Internal Medicine Cardiovascular Disease; FAMILY PHYSICIAN Family Medicine | DX: I25.10 Atherosclerotic heart disease of native coronary artery without angina pectoris (principal); I25.2 Old myocardial infarction; Z95.5 Presence of coronary angioplasty implant and graft | CPT/HCPCS: G0422; G0423 ==

== ENCOUNTER 2024-04-11 18:33 | Inpatient (IN) | payer OTHER, SELFPAY ==
[2024-04-11] VITALS (10 sets, daily range): BP systolic 119–179; BP diastolic 66–95; PULSE 3–59; BMI 31.2
[2024-04-11 13:07] LABS: % Basophils 0.8 % (0-2); % Eosinophils 6.7 % (0-6); % Immature Granulocytes 0.2 % (0-0.5); % Lymphocytes 32.8 % (20.5-51.1); % Neutrophils 50.5 % (42.2-75.2); Absolute Basophils 0.1 10^3/uL (0-0.2); Absolute Eosinophils 0.4 10^3/uL (0-0.7); Absolute Monocytes 0.6 10^3/uL (0.1-0.6); Absolute Neutrophils 3.1 10^3/uL (1.4-6.5); Hematocrit 37.2 % (39.0-52.0); Hemoglobin 11.6 g/dL (13.0-18.0); Mean Corp Hgb Conc. 31.2 g/dL (33.0-37.0); Mean Corpuscular Hgb 25.2 pg (27.0-31.0); Mean Corpuscular Volume 80.9 fL (80.0-94.0); Nucleated Red Blood Cells % 0 % (-); Platelet Count 246 10^3/uL (130-400); Red Cell Dist. Width 15.5 % (11.5-14.5); White Blood Cell Count 6.1 10^3/uL (4.8-10.8)
[2024-04-11 13:36] LABS: ALT (SGPT) < 10 U/L (0-50); AST (SGOT) 22 U/L (17-59); Albumin 4.6 g/dl (3.5-5.0); Alkaline Phosphatase 114 U/L (38-126); Blood Urea Nitrogen 24 mg/dl (9-20); Calcium 9.2 mg/dl (8.4-10.2); Carbon Dioxide 26 mmol/L (22-30); Chloride 101 mmol/L (98-107); Glucose 166 mg/dl (70-99); Potassium 4.2 mmol/L (3.5-5.1); Sodium 141 mmol/L (135-145); Total Bilirubin 0.2 mg/dl (0.2-1.3); Total Protein 7.8 g/dl (6.3-8.2); eGFR > 60.00
[2024-04-11 13:47] LABS: Troponin I 0.057 ng/ml
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
--- NOTE | 2024-04-11 16:32 | PHANOTE ---
Medication reconciliation completed with patient who brought a home med list to ED. Medications verified with a physician list in [facility] updated on 04/06/24. The [facility] was contacted for a third source due to discrepancies between lists. Bupropion was not
included on the [facility] med list however, patient states that he takes. Levothyroxine was included on the [facility] dispnse list however, was not on patient's home medication list.
[2024-04-11 16:43] LABS: Troponin I 0.589 ng/ml
[2024-04-11] MEDS: HEPARIN 25000 UNITS/250 ML IV (17:19)
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
[2024-04-11 17:35] LABS: APTT 30.8 Sec (23.4-35.0)
--- NOTE | 2024-04-11 18:28 | W.PN.UPDATE ---
Update Note
Progress Note Update
This note serves as an addendum to the H&P by business services sales agent JUAN Kamryn Gonzalez
HPI
79M HX HTN, HLD, T2DM, multivessel CAD s/p PCI of RCA 08/31/23 on ASA/plavix, sen at ER
- reports CP this afternoon while walking to his car from restaurant.
- No symptoms.
- Initial trop 0.057
- No acute ischemic ECG
Other PMX:
TIA, LISA on Bipap, Parkinson's, BPH, former smoker, COPD, mild to moderate ,
Reviewed VS: unremarkable
PE
Gen: NAD , obese BMP @ 31
HEENT: anicteric
Neck: supple
Lungs: CTA
Cor: RRR S1 S2 . No murmur
Abdomen: soft abdomen , BS
ANESTHETIC ASSISTANT: AAO3 , NFND
MS: no edema
Psych: Appropriate
Data
09/27/23 04/11/24 04/11/24
05:26 13:00 16:02
WBC 6.1
Hgb 10.9 L 11.6 L
BUN 24 H
Creatinine 1.2
eGFR > 60.00
Troponin I 0.589 H* D
04/11/24 ECHO
Mod LVH LVEF 60-65%.
Normal regional wall motion. Normal left ventricular systolic function. Left
Left atrium is severely dilated
There is mild mitral regurgitation
There is mild aortic stenosis with peak and mean gradients of 27 and 14 mmHg
There is mild dilatation of the aorta with aortic root (4.1 cm) and sinuses of
Valsalva (3.9 cm) dilatation. Ascending aorta not well visualized. The aortic
arch is normal in caliber.
Compared to prior echocardiogram from August 28, 2023, previously peak and mean
gradients across the aortic valve were 26 and 19 mmHg and previously the aorta
measured at the sinus of Valsalva was 3.7 cm
ASSESSMENT & PLAN
Currently CP free
Suspect NSTEMI vs. 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
HX multivessel CAD s/p PCI of RCA 08/31/23 on ASA/Plavix,
Prior evaluation suggest hi risk for CABG due to PKDz and cognitive function
Intolerance to BB last admission due to bradycardia
- DCA card consulted
- reports CP this afternoon while walking to his car from restaurant.
- Trend trops and serrial ECG
- c/w DAPL and statin
- SL NTG gtt
- on Heparin gtt Heparin drop for possible ACS
- ECHO for WMAL
LISA on BiPAP HS
Other PMX:
TIA,
Parkinson's
BPH,
Former smoker
COPD:not on Meds per current list
mild to moderate ,
DVT Px: Heparin gtt
Full code
IVU
[2024-04-11 22:21] LABS: Glucose - Point of Care 126 mg/dl (70-99)
[2024-04-11] MEDS: LANTUS 0.6 UNITS SC (22:22)
[2024-04-11] MEDS: REMERON 7.5 MG PO (22:22)
[2024-04-11] MEDS: BUSPAR 30 MG PO (22:23)
[2024-04-11] MEDS: APRESOLINE 100 MG PO (22:27)
[2024-04-11] MEDS: CRESTOR 40 MG PO (22:27)
[2024-04-11] MEDS: SINEMET 25-100 2 TABLET PO (22:27)
[2024-04-11] MEDS: MYSOLINE 100 MG PO (22:27)
[2024-04-11 23:49] LABS: APTT 55.5 Sec (23.4-35.0)
[2024-04-12] VITALS (20 sets, daily range): BP systolic 99–177; BP diastolic 56–103; PULSE 2–59; O2SAT 97–98
--- NOTE | 2024-04-12 02:31 | PTCARENOTE ---
Received patient from ED via stretcher into room 3920. Patient ambulated w/ standby assist. Upper extremities tremulous, pt w/ hx of Parkinson. Patient AAOx3 and Tele monitor applied--pt SR w/ 1st AV block and BBBC. Patient denies any chest pain or
discomfort. IV Heparin gtt infusing, next ptt due at 06:05. Patient oriented to room and aware of NPO status at midnight. Chronic Rod on admission maintained. Call mayberry within reach.
--- NOTE | 2024-04-12 06:40 | W.PN.HOSP.TC ---
Today's Communication/Plan
-
Stat Dextrose
Potassium replacement
c/w IV heparin
f/w cardiology recommendations
Monitor for orthostatic hypotension
Assessment / Plan
Assessment / Plan
Physical Exam
General: Well Developed, Well Nourished, No Apparent Distress, Comfortable and Conversant
HEENT: Normocephalic, Moist mucous membranes, Atraumatic, PERRLA, Nose Appears Normal and Ears Appear Normal
Respiratory: Less rhonchi, Non Labored Respirations
Cardiac: S1/S2 and Regular Rhythm; No Murmur, Rub or Gallop
GI: Soft, Non Tender, Non Distended and Normal Bowel Sounds;
Rectal: No rectal bleeding.
Genito-urinary: Chronic Rod
Musculoskeletal: No Clubbing, No Cyanosis and No Edema
Skin: Warm, Dry and IV/Catheter Site; No Rash
Neuro: Awake, AO x to self and surroundings, followed commands.
Psych: Calm and Intact Judgment/Insight
#Chest pain/ NSTEMI with
History of RCA stenting
- No chest pain over night
chest pain with exertion associated with mild shortness of breath
- trop 0.057, 0.589, peak at 3.330 then down to 3.030
- Echo 04/11 : Normal left ventricular chamber size. Moderate left ventricular hypertrophy.
Normal regional wall motion. Normal left ventricular systolic function. Left
ventricular ejection fraction is 60-65%.
Left atrium is severely dilated
There is mild mitral regurgitation
There is mild aortic stenosis with peak and mean gradients of 27 and 14 mmHg
- EKG - SINUS RHYTHM WITH 1ST DEGREE A-V BLOCK WITH OCCASIONAL PREMATURE VENTRICULAR
COMPLEXES
RIGHT BUNDLE BRANCH BLOCK
LEFT ANTERIOR FASCICULAR BLOCK
-
c/w IV heparin gtt
- continue ASA, Plavix, ezetimibe, isosorbide, and rosuvastatin
# Hypokalemia, replace
#Primary hypertension
- continue hydralazine
#hyperlipidemia
- continue ezetimibe and rosuvastatin
#COPD/Sleep apnea
- BiPap PRN and HS
#Parkinson's disease
- continue carbidopa-levodopa, and primidone
#diabetes
Hypoglycemia this morning, give Dextrose
- continue empagliflozin, insulin glargine
- AccuCheck AC & HS
- SSI
#CKD stage 3A
- creat 1.2, at baseline
#depression
- continue buspirone, and mirtazapine
#BPH
- continue doxazosin, and finasteride
Full Code
DVT Px: Heparin gtt
Total time spent to see the patient on the floor, examine the patient, review data and lab results, discuss treatment plan with patient, nursing staff around 55 minutes
Anticipated Discharge: 24 - 48 hours
Subjective/Interval History
-
Date of Service: April 12, 2024
No chest pain
No sob
Objective Data
-
Labs:
Laboratory Results
04/11/24 04/12/24
23:29 06:01
APTT 55.5 H Pending
Sodium Pending
Potassium Pending
Chloride Pending
Carbon Dioxide Pending
BUN Pending
Creatinine Pending
Glucose Pending
Calcium Pending
Total Bilirubin Pending
AST Pending
ALT Pending
Alkaline Phosphatase Pending
Vital Signs:
Vital Signs
Temp Pulse Resp BP Pulse Ox
97.9 F 56 20 118/70 93
04/12/24 04:08 04/12/24 06:00 04/12/24 04:08 04/12/24 04:08 04/12/24 04:08
I&O
04/10/24 04/11/24 04/12/24
06:59 06:59 06:59
Output Total 700 / 700
Balance -700 / -700
[2024-04-12 06:45] LABS: APTT 80.2 Sec (23.4-35.0)
[2024-04-12 08:02] LABS: ALT (SGPT) < 10 U/L (0-50); AST (SGOT) 31 U/L (17-59); Albumin 4.3 g/dl (3.5-5.0); Alkaline Phosphatase 99 U/L (38-126); Blood Urea Nitrogen 23 mg/dl (9-20); Calcium 8.8 mg/dl (8.4-10.2); Carbon Dioxide 28 mmol/L (22-30); Chloride 101 mmol/L (98-107); Estimated Creatinine Clearance 55 ml/min; Glucose 38 mg/dl (70-99); HDL Cholesterol 62 mg/dl; LDL Cholesterol, Calculated 56 mg/dl; Potassium 3.4 mmol/L (3.5-5.1); Sodium 142 mmol/L (135-145); Total Bilirubin 0.3 mg/dl (0.2-1.3); Total Cholesterol 139 mg/dl (50-199); Total Protein 7.4 g/dl (6.3-8.2); Triglyceride 106 mg/dl (10-149); Very Low Density Lipoprotein 21 mg/dl (0-30); eGFR > 60.00
[2024-04-12 08:26] LABS: Glucose - Point of Care 75 mg/dl (70-99)
--- NOTE | 2024-04-12 08:30 | PTCARENOTE ---
Assumed care of pt from prev nsg shift; Pt AAOX3 w/no c/o CP or SOB. Pt's VS stable w/HR in the 50's, BP 123/65 this AM. Pt is SB w/1st deg AV block, R BBB, & freq PVC's on telemetry monitoring. Pt's lab glucose came back at 38. Pt given OJ &
fingerstick glucose 15 mins later was 75. Pt is NPO except meds for poss cardiac cath today. Awaiting Cardiology input. Plan of care ongoing.
[2024-04-12] MEDS: NOVOLOG FLEXPEN-LOW RESISTANCE SC ×2 (08:45→12:04)
[2024-04-12 08:55] LABS: Glycohemoglobin (HgbA1c) 7.7 % (4.0-5.6)
[2024-04-12] MEDS: IMDUR (EXTENDED RELEASE) 30 MG PO (10:23)
[2024-04-12] MEDS: PROTONIX 40 MG PO (10:23)
[2024-04-12] MEDS: SINEMET 25-100 2 TABLET PO ×3 (10:23→22:39)
[2024-04-12] MEDS: PROSCAR 5 MG PO (10:24)
[2024-04-12] MEDS: MYSOLINE 100 MG PO ×2 (10:24→20:05)
[2024-04-12] MEDS: VITAMIN B-12 1000 MCG PO (10:24)
[2024-04-12] MEDS: CARDURA 2 MG PO (10:24)
[2024-04-12] MEDS: PLAVIX 75 MG PO (10:24)
[2024-04-12] MEDS: KCL 20 MEQ PO (10:24)
[2024-04-12] MEDS: APRESOLINE 100 MG PO (10:24)
[2024-04-12] MEDS: ZETIA 10 MG PO (10:24)
[2024-04-12] MEDS: LOW STRENGTH ASPIRIN 81 MG PO (10:24)
[2024-04-12] MEDS: FARXIGA 10 MG PO (10:25)
[2024-04-12 10:29] LABS: Glucose - Point of Care 44 mg/dl (70-99)
[2024-04-12] MEDS: DEXTROSE 50% SYRINGE 12.5 GRAMS IV (10:29)
[2024-04-12] MEDS: FLUSH (NSS) 2 FLUSH IV (10:30)
[2024-04-12 10:54] LABS: Glucose - Point of Care 104 mg/dl (70-99)
--- NOTE | 2024-04-12 11:50 | PTCARENOTE ---
Report to [facility] in the slab puller; pt transported to laboratory technician in bed. Heparin drip stopped before transport. Plan of care ongoing.
--- NOTE | 2024-04-12 13:51 | ITS.CL.CATH ---
Editorial Intern - Catheterization
Cardiac Catheterization
Procedure Report:
LEFT HEART CATHETERIZATION
Date of Procedure: April 12, 2024
Referring: Rosalind Mistry MD, [facility], [facility]
PROCEDURES:
1. Left heart catheterization, coronary angiogram.
2. Ultrasound-guided access.
INDICATION: Newton is a 79-year-old gentleman with past medical history of Parkinson's disease, hypertension, hyperlipidemia, type 2 diabetes mellitus, obstructive sleep apnea, TIA, mild to moderate aortic stenosis who presents this admission after 1
episode of left-sided chest pressure while walking to his car from [employer] yesterday found to have an NSTEMI with peak troponin I of 3.3, most recently downtrending. After the isolated episode he continues to remain chest pain-free and is
now referred for a left heart catheterization to rule out obstructive CAD. Of note he had his last cath in August 2023 when he was found to have multivessel CAD and was referred for possible coronary artery bypass grafting however given some
cognitive decline thought to be secondary to his Parkinson's disease he was deemed a high risk surgical candidate and his RCA was treated percutaneously with stents at that point. He continues to remain on dual antiplatelet therapy with daily baby
aspirin and Plavix.
ACCESS: Right radial artery, 6 [place]bourg[place] sheath
HEMODYNAMICS : (mmHg)
AO (s/d) : 96/56
LV (s/d) : 111/9
LVEDP : 18
Estimated mean trans-aortic gradient of 19 mmHg
CORONARY FINDINGS
DOMINANCE: Right
LEFT MAIN: The left main artery is a large-caliber calcified vessel which gives rise to the left anterior descending artery and the left circumflex artery. There is minimal luminal irregularities.
LEFT ANTERIOR DESCENDING: The LAD is moderate to heavily calcified as it arises from the left main and has diffuse atherosclerotic disease in its midportion. There are tandem 70%, 70%, and 65% stenoses in the mid LAD. The first diagonal branch
arises from the proximal one third of the LAD and has a small caliber vessel that has an 80% proximal stenosis. The diagonal branch is too small to graft or for percutaneous revascularization
CIRCUMFLEX: The circumflex is a medium caliber non-dominant vessel supplying a large OM1 that runs in a distribution typical for a ramus intermedius. There is a 80% proximal stenosis just beyond its origin with a 95% distal stenosis supplying a
small terminal vessel.
RIGHT CORONARY ARTERY: The right coronary artery is a dominant vessel which gives rise to the right posterior descending artery and the right posterolateral system and is moderately calcified over its course. The mid RCA stents placed in August 2023
are widely patent. The mid to distal RCA has minor irregularities. The PDA has a 70% ostial stenosis but supplies a small vascular territory. The posterolateral branch has a 60% mid stenosis.
SEDATION: 52 minutes of procedural sedation was utilized. An independent medical screener was present to assist with and help manage the patient's level of consciousness and physiologic status.
RADIATION SUMMARY: Fluoro Time (min): 12.1, Dose (mGy): 605.08, DAP (Gy.cm2) : 54.2
Closure Device: Vascular band over right radial artery, 10 cc of air.
CONCLUSIONS
1. No obvious culprit for presenting acute coronary syndrome.
2. Mid RCA with patent stents.
3. Otherwise stable distal RCA and left coronary artery disease.
4. Elevated LVEDP at 18 mmHg.
5. Estimated mean transaortic gradient of 19 mmHg consistent with moderate aortic stenosis.
RECOMMENDATIONS
1. Optimization of antianginal therapy for underlying coronary artery disease) ascending ACS.
2. Aggressive management of cardiovascular risk factors.
3. Wean radial band per protocol.
4. If patient fails medical therapy, consider percutaneous coronary artery intervention to proximal OM1 +/- mid LAD.
5. Referral for outpatient cardiac rehab
Copy to: Johnny Robles
Rosalind Mistry MD, FACC, [facility]
--- NOTE | 2024-04-12 14:26 | CM ---
Chart reviewed. Patient is independent of ADLS, lives with his and son in a 2nd floor duplex, total of 8 KELLEN, 0 DME. Plan is for the patient to return home. CM to follow
[2024-04-12] MEDS: NORVASC 2.5 MG PO (15:29)
[2024-04-12] MEDS: TOPROL XL 25 MG PO (15:30)
[2024-04-12 16:56] LABS: Glucose - Point of Care 237 mg/dl (70-99)
[2024-04-12] MEDS: NOVOLOG FLEXPEN-LOW RESISTANCE 2 UNITS SC (17:01)
[2024-04-12] MEDS: APRESOLINE 50 MG PO ×2 (17:02→22:36)
[2024-04-12 21:01] LABS: Glucose - Point of Care 152 mg/dl (70-99)
[2024-04-12] MEDS: CRESTOR 40 MG PO (22:35)
[2024-04-12] MEDS: REMERON 7.5 MG PO (22:35)
[2024-04-12] MEDS: BUSPAR 30 MG PO (22:35)
[2024-04-12 22:47] LABS: Glucose - Point of Care 146 mg/dl (70-99)
[2024-04-12] MEDS: LANTUS 0.6 UNITS SC (22:47)
[2024-04-13 03:06] LABS: Glucose - Point of Care 81 mg/dl (70-99)
[2024-04-13 04:38] VITALS: BP 118/70
[2024-04-13 05:19] LABS: Hematocrit 32.2 % (39.0-52.0); Hemoglobin 10.6 g/dL (13.0-18.0); Mean Corp Hgb Conc. 32.9 g/dL (33.0-37.0); Mean Corpuscular Hgb 26.1 pg (27.0-31.0); Mean Corpuscular Volume 79.3 fL (80.0-94.0); Platelet Count 227 10^3/uL (130-400); Red Blood Cell Count 4.06 10^6/uL (4.70-6.10); Red Cell Dist. Width 15.5 % (11.5-14.5); White Blood Cell Count 5.1 10^3/uL (4.8-10.8)
[2024-04-13 05:43] LABS: ALT (SGPT) < 10 U/L (0-50); AST (SGOT) 25 U/L (17-59); Albumin 3.8 g/dl (3.5-5.0); Alkaline Phosphatase 74 U/L (38-126); Blood Urea Nitrogen 22 mg/dl (9-20); Calcium 8.8 mg/dl (8.4-10.2); Carbon Dioxide 28 mmol/L (22-30); Chloride 100 mmol/L (98-107); Estimated Creatinine Clearance 55 ml/min; Glucose 73 mg/dl (70-99); Potassium 4.1 mmol/L (3.5-5.1); Sodium 138 mmol/L (135-145); Total Bilirubin 0.3 mg/dl (0.2-1.3); Total Protein 6.9 g/dl (6.3-8.2); eGFR > 60.00
--- NOTE | 2024-04-13 06:06 | PTCARENOTE ---
Rec'd pt at change of shift. Pt on TELE monitor in SR and sinus bradycardia with HR in 40's while resting. VSS and pt AAO*3. Pt aware and agreeable to POC. Chronic camargo remains in place. Pt denies any pain or discomfort and resting with call
mayberry in reach.
--- NOTE | 2024-04-13 06:20 | W.PN.HOSP.TC ---
Today's Communication/Plan
-
DC planning
Assessment / Plan
Assessment / Plan
Physical Exam
General: Well Developed, Well Nourished, No Apparent Distress, Comfortable and Conversant
HEENT: Normocephalic, Moist mucous membranes, Atraumatic, PERRLA, Nose Appears Normal and Ears Appear Normal
Respiratory: Less rhonchi, Non Labored Respirations
Cardiac: S1/S2 and Regular Rhythm; No Murmur, Rub or Gallop
GI: Soft, Non Tender, Non Distended and Normal Bowel Sounds;
Rectal: No rectal bleeding.
Genito-urinary: Chronic Rod
Musculoskeletal: No Clubbing, No Cyanosis and No Edema
Skin: Warm, Dry and IV/Catheter Site; No Rash
Neuro: Awake, AO x to self and surroundings, followed commands.
Psych: Calm and Intact Judgment/Insight
#Chest pain/ NSTEMI with History of RCA stenting
s/p LHC with no obvious new obstructive CAD to repair. recommended medical TX.
- No chest pain over night
chest pain with exertion associated with mild shortness of breath
- trop 0.057, 0.589, peak at 3.330 then down to 3.030
s/p IV heparin gtt
- continue ASA, Plavix, ezetimibe, isosorbide, and rosuvastatin
# Hypokalemia, replaced
#Primary hypertension
- continue hydralazine
#hyperlipidemia
- continue ezetimibe and rosuvastatin
#COPD/Sleep apnea
- BiPap PRN and HS
#Parkinson's disease
- continue carbidopa-levodopa, and primidone
#diabetes
Hypoglycemia this morning, give Dextrose
- continue empagliflozin, insulin glargine
- AccuCheck AC & HS
- SSI
#CKD stage 3A
- creat 1.2, at baseline
#depression
- continue buspirone, and mirtazapine
#BPH
- continue doxazosin, and finasteride
Full Code
DVT Px: Heparin gtt
Total discharge time spent to see the patient on the floor, examine the patient, review data and lab results, discuss discharge plan with patient, nursing staff around 67 minutes
Anticipated Discharge: Today
Subjective/Interval History
-
Date of Service: April 13, 2024
No chest pain
Objective Data
-
Labs:
Laboratory Results
04/13/24
04:46
WBC 5.1
Hgb 10.6 L
Hct 32.2 L
Plt Count 227
Sodium 138
Potassium 4.1
Chloride 100
Carbon Dioxide 28
BUN 22 H
Creatinine 1.1
Glucose 73
Calcium 8.8
Total Bilirubin 0.3
AST 25
ALT < 10
Alkaline Phosphatase 74
Vital Signs:
Vital Signs
Temp Pulse Resp BP Pulse Ox
98.3 F 46 20 118/70 97
04/13/24 04:41 04/13/24 06:00 04/13/24 04:41 04/13/24 04:38 04/13/24 04:41
I&O
04/11/24 04/12/24 04/13/24
06:59 06:59 06:59
Output Total 700 / 700 1200 / 1200
Balance -700 / -700 -1200 / -1200
[2024-04-13 07:30] VITALS: PULSE 50
[2024-04-13 07:33] VITALS: BP 129/72
[2024-04-13 08:22] LABS: Glucose - Point of Care 54 mg/dl (70-99)
[2024-04-13] MEDS: NOVOLOG FLEXPEN-LOW RESISTANCE SC ×2 (08:35→13:09)
--- NOTE | 2024-04-13 08:39 | PTCARENOTE ---
Assumed care of pt from prev nsg shift; Pt AAOX3 w/no c/o CP or SOB. Pt's VS stable w/HR in the high 40's-50's with pt at rest, HR in the 60's w/activity, BP 129/72 this AM. Pt is SB w/1st deg AV block & R BBB on telemetry monitoring. Pt's AccuCheck
pre-breakfast was 54. Pt given OJ & started eating breakfast. AccuCheck on recheck was 85. Pt's R radial site w/dressing C/D/I & signs or symptoms of bleeding or hematoma. Pt w/call mayberry within reach & plan of care ongoing.
[2024-04-13 08:46] LABS: Glucose - Point of Care 85 mg/dl (70-99)
[2024-04-13] MEDS: TOPROL XL 25 MG PO (10:02)
[2024-04-13] MEDS: NORVASC 2.5 MG PO (10:02)
[2024-04-13] MEDS: ZETIA 10 MG PO (10:02)
[2024-04-13] MEDS: SINEMET 25-100 2 TABLET PO (10:02)
[2024-04-13] MEDS: PROTONIX 40 MG PO (10:02)
[2024-04-13] MEDS: MYSOLINE 100 MG PO (10:03)
[2024-04-13] MEDS: VITAMIN B-12 1000 MCG PO (10:03)
[2024-04-13] MEDS: PROSCAR 5 MG PO (10:03)
[2024-04-13] MEDS: FARXIGA 10 MG PO (10:03)
[2024-04-13] MEDS: CARDURA 2 MG PO (10:03)
[2024-04-13] MEDS: IMDUR (EXTENDED RELEASE) 30 MG PO (10:03)
[2024-04-13] MEDS: PLAVIX 75 MG PO (10:03)
[2024-04-13] MEDS: APRESOLINE 50 MG PO (10:03)
[2024-04-13] MEDS: LOW STRENGTH ASPIRIN 81 MG PO (10:03)
[2024-04-13 11:06] VITALS: BP 115/62
--- NOTE | 2024-04-13 11:09 | W.PN.CARDCBS ---
Addendum entered and electronically signed by Terri Souza PA-C 04/13/24 15:13:
please add to below diagnoses: concern for acute on chronic HFpEF
Addendum entered and electronically signed by Rosalind Mistry MD 04/13/24 13:13:
I saw and examined the patient.
The Sole Rougher's note was reviewed and I agree with the note.
Comment: Overall patient is doing well and has not had any recurrent chest discomfort. No issues at the right radial access site. Patient has not been out of bed ambulating yet.
Vital signs and lab work reviewed. On exam patient is well-appearing in no acute distress, awake, alert and oriented x 3, bibasilar Rales, normal S1, 2 out of 6 systolic ejection murmur loudest at the right upper sternal border, no rubs or gallops,
abdomen is soft, nontender, nondistended with active bowel sounds, right radial access site with dressing in place which is clean, dry and intact without evidence of hematoma or bruit, warm extremities without significant edema.
.
Recommendations:
1. Given bibasilar Rales on exam with LVEDP yesterday of 18 mmHg, will give 1 dose of IV Lasix and resume home p.o. Lasix 20 mg daily.
2. Optimization of antianginal therapy by decreasing hydralazine to allow room for amlodipine 2.5 mg daily. Given bradycardia we will cut back on the Toprol-XL to 12.5 mg daily. Continue home Imdur along with dual antiplatelet therapy and statin
therapy.
3. Given resumption of Lasix, we will plan on checking outpatient labs including renal function and electrolytes.
4. Outpatient cardiology follow-up will be set up. As long as patient ambulates without limiting cardiac symptoms, stable for discharge today.
Rosalind Mistry MD, [facility], [facility]
Original Note:
Today's Communication / Plan
-
check proBNP. start lasix
hydralazine 50mg TID
norvasc 2.5mg daily
toprol 12.5mg daily
imdur 30mg daily
asa, plavix, crestor, zetia
BMP in 1 week
OP cardiac follow up arranged
Impression / Plan
-
PCP: Valencia Peralta MD
Primary Inside Channel Account Manager: Dr. Robles (previously followed at [facility])
Assessment:
Presents 04/11/2024 with chest pain, mild QUEZADA
NSTEMI, peak trop 3.3
CAD
NSTEMI, peak trop 0.335 08/28/2023 s/p 4.0 x 28 mm Xience stent to mid RCA 08/31/2023
Residual tandem 60 to 70% mid LAD lesion, 80% proximal circumflex lesions medically manage
cath 04/12/24 with diffuse CAD but no clear culprit lesion
Mild to moderate aortic stenosis mean gradient 19 mmHg (08/28/2023)
Diabetes mellitus type 2
Hypertension, poorly controlled
BPH with urinary retention and indwelling Rod
Parkinson's disease
Bifascicular block
Hyperlipidemia
History of TIA 2016
Sleep apnea on BiPAP
Former smoker
TIA 2016, on chronic ASA and Plavix
Chronic anemia
LHC 08/28/2023: LM:NL, LAD: tandem 70%, 70% and 60% mid LAD stenosis. LCX: 80% prox, 95% distal. RCA 80% mid s/p 4.0x28 mm Xience TOMASA, RPDA 70% ost, RPL 60% mid. Moderate
ECHO 10/2008: EF 60%, no regional wall motion abnormalities, mild concentric LVH, mild MR, mildly dilated left atrium, mild with trace AI
Echo 08/28/23: EF 60-65%, mild to mod with MPG 19 mmHg
ECHO 04/11/24: EF 60 to 65%, severely dilated left atrium, mild MR, mild with peak/mean gradients 27/14 mmHg, mild dilatation of aorta
Recommendations:
-He presented with chest pain and ruled in for NSTEMI with peak trop 3.3. he has known CAD and was previously felt to be high risk for CT surgery given comorbidities
-Echo 04/11 as above, EF preserved
-Cath 04/12/2024 with patent prior RCA stents and diffuse CAD but no obvious culprit lesion for presentation of ACS
-Plan for optimization of antianginal therapy. On Imdur as an outpatient, continued. Outpatient hydralazine dose decreased to 50 mg 3 times daily to allow for addition of Toprol and Norvasc 2.5 mg daily
-toprol dose decreased 04/13 due to bradycardia noted on tele overnight, asymptomatic. of note, patient with history of bradycardia with BB in past, may not be able to tolerate
-Continue aspirin, Plavix
-LDL at goal on outpatient Crestor 40 mg daily and Zetia 10 mg daily, continue
-Ambulate patient today
-Cr stable at 1.1. he had previously been on lasix and lisinopril however were discontinued 09/2023 due to EWA with Cr up to 1.8. LVEDP was 18 at time of cath. with crackles at bases on exam and CXR with concern for elevated pulm venous pressures,
will place back on po lasix 20mg daily
-BMP in 1 week upon DC
-will need adjustment of insulin given 2 days of AM hypoglycemia, defer to medicine
-OP cardiac follow up arranged
-d/w nursing
Progress Note - Inside Channel Account Manager
Subjective
Date of Service: April 13, 2024
No complaints overnight
Objective
Labs:
04/13/24 04:46
04/13/24 04:46
Labs
Hgb 10.6 g/dL (13.0-18.0) L 04/13/24 04:46
Hct 32.2 % (39.0-52.0) L 04/13/24 04:46
Plt Count 227 10^3/uL (130-400) 04/13/24 04:46
APTT Cancelled 04/12/24 12:05
Sodium 138 mmol/L (135-145) 04/13/24 04:46
Potassium 4.1 mmol/L (3.5-5.1) 04/13/24 04:46
BUN 22 mg/dl (9-20) H 04/13/24 04:46
Creatinine 1.1 mg/dL (0.7-1.3) 04/13/24 04:46
Glucose 73 mg/dl (70-99) 04/13/24 04:46
Troponins
04/11/24 04/11/24 04/11/24
13:00 16:02 20:37
Troponin I 0.057 H* 0.589 H* D 3.330 H* D
04/11/24 04/12/24
23:29 01:55
Troponin I 3.030 H* Cancelled
Vital Signs and I&O:
Vital Signs
Temp Pulse Resp BP Pulse Ox
98.4 F 47 18 129/72 98
04/13/24 07:31 04/13/24 07:33 04/13/24 07:31 04/13/24 07:33 04/13/24 07:31
Vital Signs
Temp Pulse Resp BP Pulse Ox
98.4 F 47 18 129/72 98
04/13/24 07:31 04/13/24 07:33 04/13/24 07:31 04/13/24 07:33 04/13/24 07:31
Intake & Output
04/11/24 04/12/24 04/13/24 04/14/24
07:59 07:59 07:59 07:59
Output Total 700 / 700 1200 / 1200 175 / 175
Balance -700 / -700 -1200 / -1200 -175 / -175
Physical Exam
Physical Exam
GEN: No distress, awake, alert, oriented x3
HEENT: supple, anicteric, mmm, eomi
LUNGS: Crackles B/L bases, no wheezes
CV: Reg and oz, S1/S2, 1/6 syst LSB
ABD: soft, BS+, NT/ND
EXT: No cyanosis, clubbing, edema
NEURO: Gross non-focal
SKIN: Warm, pink, dry. No rash. R wrist site c/d/i
--- NOTE | 2024-04-13 11:32 | CM ---
Chart reviewed. Patient is independent of ADLS, lives with his and son in a 2nd floor duplex, 8 KELLEN, 0 DME. Plan is for the patient to return home. CM to follow
[2024-04-13 12:49] LABS: Glucose - Point of Care 203 mg/dl (70-99)
[2024-04-13] MEDS: LASIX 20 MG PO (12:56)
--- NOTE | 2024-04-13 14:21 | W.DCSUMMARY ---
Discharge Summary
Discharge Data
Date of Admission: 04/11/24
Date of Discharge: 04/13/24
-
Pending Results: No
Hospital Course
79 years old male with history of coronary artery disease of presented with chest pain and discomfort. Troponin on admission was 0.057 and went up to 3.0. Patient did not have recurrent chest pain in the hospital. He was evaluated by
dog hair clipper. Echocardiogram showed normal left ventricular systolic function at 60 to 65%, moderate left ventricular hypertrophy, normal regional wall motion, severely dilated left atrium, mild MR, mild with peak/mean gradients 27/14 mmHg,
mild dilatation of aorta. Electrocardiogram showed conduction defects. Patient was given intravenous heparin with continuation of antiplatelet therapy. Patient underwent left heart catheterization that showed patent prior RCA stents and diffuse
CAD but no obvious culprit lesion for presentation of ACS. Left ventricular end-diastolic pressure was around 18 mmHg. Patient was given low-dose Lasix. And the goal was to optimize antianginal therapy by decreasing hydralazine to allow use of
low-dose of amlodipine and reducing the dose of Toprol due to bradycardia. Patient remained hemodynamically stable. Patient was discharged home in a stable condition. He declined home health services. Patient was given a prescription to do blood
work in 1 week.
Discharge Plan
-
Patient Disposition: Home with Home Care
Discharge Diagnosis/Procedures: NSTEMI, peak trop 3.3 status post cardiac cath. Please follow the new changes to your cardiac medications, do blood work in one week.
You had low glucose every morning, we reduced dose of Lantus, please follow with your primary care doctor.
Diet: Low Cholesterol and 2 Gram Sodium
Driving Restrictions: No driving for 24 hours
Blood Work: BMP in 1 week
Specialty Instructions: Weigh Daily- Call MD for wt gain/loss 3 lbs overnight/5 lbs in 1 week
Stand Alone Forms: DC Instructions- Cath/EP Lab
Referrals:
Cielo Thomson PA-C [Specified Professional Personl] - 04/18/24 2:00 pm (You have a cardiology follow-up appointment at the [place] office with Dr. Robles's physician clinical data assistant, Cielo. Please call with questions)
Obdulio Pinto MD [Family Provider] -
Johnny Robles MD [Active] - 05/16/24 2:00 pm
Prescriptions:
New
nitroglycerin 0.4 mg Tablet, Sublingual
0.4 mg sublingual [id number] PRN (Reason: chest pain) Qty: 10 0RF
furosemide 20 mg Tablet
20 mg PO DAILY Qty: 30 0RF
metoprolol succinate 25 mg Tablet Extended Release 24 Hr
12.5 mg PO DAILY Qty: 30 0RF
amlodipine 2.5 mg tablet
2.5 mg PO DAILY Qty: 30 0RF
Continued
primidone 50 mg Tablet
100 mg PO BID
cyanocobalamin (vitamin B-12) 1,000 mcg Tablet
1,000 mcg PO DAILY
clopidogrel 75 mg Tablet
75 mg PO DAILY
insulin aspart U-100 [Novolog U-100 Insulin aspart] 100 unit/mL Solution
0 sliding scale dose SC DIRECTED
Patient Comments:
08/28/2023, pt. unsure of sliding scale.
bupropion HCl 75 mg Tablet
75 mg PO HS
mirtazapine 15 mg Tablet
7.5 mg PO HS
carbidopa-levodopa 25-100 mg Tablet
2 tab PO TID
finasteride 5 mg Tablet
5 mg PO DAILY
buspirone 15 mg Tablet
30 mg PO HS
rosuvastatin 40 mg Tablet
40 mg PO HS
aspirin [Children's Aspirin] 81 mg Tablet,Chewable
81 mg PO DAILY Qty: 30 0RF
pantoprazole 40 mg Tablet,Delayed Release (Dr/Ec)
40 mg PO DAILY Qty: 30 11RF
bupropion HCl 150 mg Tablet Sustained-Release 12 Hr
150 mg PO DAILY
doxazosin 2 mg Tablet
2 mg PO DAILY
empagliflozin 25 mg Tablet
25 mg PO DAILY
isosorbide mononitrate 30 mg tablet extended release 24 hr
30 mg PO DAILY
ezetimibe [Zetia] 10 mg Tablet
10 mg PO DAILY
levothyroxine 25 mcg Tablet
25 mcg PO DAILY
Changed
hydralazine 100 mg Tablet
50 mg PO TID Qty: 0 0RF
insulin glargine 100 unit/mL (3 mL) Insulin Pen
50 unit SC HS Qty: 0 0RF
Discontinued
furosemide [Lasix] 20 mg tablet
10 mg PO DAILY PRN (Reason: Fluid retention/Swelling)
Discharge Orders:
Discharge Patient (As Directed); Ordered 04/13/24
Ordered By: Luz Maria Mckinley
Care Plan Goals
Care Plan Goals:
Problem: Readiness for enhanced knowledge related to diagnosis and treatment plan
Goal: Understand your diagnosis and treatment plan needs, including medications if applicable.
Instructions: Know your diagnosis, underlying causes and treatment plan options, including medications if applicable. Consult with your health care team to learn about your diagnosis and treatment plan, including medications if applicable.
Discharge Date and Time
Print Language: VIETNAMESE
[2024-04-13 14:32] LABS: NT-proBNP 419 pg/ml
[2024-04-13 14:36] VITALS: BP 118/62
--- NOTE | 2024-04-13 14:48 | PN.CDI ---
CDI
- -
CDI:
Physician Documentation Request
Admit Date: 04/11/24 18:33
Dear Cardiology,
Please review the following and provide your response in the progress notes.
Clinical Indicators:
Pt admitted for NSTEMI.
04/13 Cardiology PN: 'Given bibasilar Rales on exam with LVEDP yesterday of 18 mmHg, will give 1 dose of IV Lasix and resume home p.o. Lasix 20 mg daily.'
Please clarify the acuity and etiology of the above documentation.
Acute pulmonary edema
Acute Heart failure (please specify type)
Fluid overload
Other
Use of terms such as suspected, likely, concern for, or probable (associated with a specific diagnosis that is being evaluated, monitored, or treated as if it exists) are acceptable and can be coded in the inpatient setting, when documented at the
time of discharge.
Thank you,
Olga Limon RN, BSN
CDI Specialist
Available via [employer]
Please use your independent medical judgment in providing your response.
[2024-04-13 15:14] VITALS: BP 147/65
--- NOTE | 2024-04-13 16:00 | PTCARENOTE ---
Pt's IV line & telemetry pack D/C'; D/C instructions discussed w/pt. Reiterated to pt that he would need to picking belt operator new prescriptions at the [facility] he specified on admission until he is [facility] by [facility] for them to write future prescriptions. Pt left
w/personal belongings incl cell phone & clothing, incl 2 baseball caps. Pt escorted out via WC by staff w/son driving pt home.
== END 2024-04-13 16:04 | disposition home or self-care (01) | DRG 280 ==
LOC: IVU 18:33
PROVIDERS: Emergency Medicine; Nurse Practitioner; Nurse Practitioner Family; Physician Assistant Medical; ADMITTING PHYSICIAN Internal Medicine; ATTENDING PHYSICIAN Internal Medicine; EMERGENCY PHYSICIAN Emergency Medicine; FAMILY PHYSICIAN Family Medicine; OTHER PHYSICIAN Internal Medicine Interventional Cardiology
PROC: B2151ZZ Fluoroscopy of Left Heart using Low Osmolar Contrast (ICD-10-PCS; 2024-04-12)
PROC: 4A023N7 Measurement of Cardiac Sampling and Pressure, Left Heart, Percutaneous Approach (ICD-10-PCS; 2024-04-12)
PROC: B2111ZZ Fluoroscopy of Multiple Coronary Arteries using Low Osmolar Contrast (ICD-10-PCS; 2024-04-12)
DX: I21.4 Non-ST elevation (NSTEMI) myocardial infarction (principal); I50.33 Acute on chronic diastolic (congestive) heart failure; I13.10 Hypertensive heart and chronic kidney disease without heart failure, with stage 1 through stage 4 chronic kidney disease, or unspecified chronic kidney disease; G20.C Parkinsonism, unspecified; E87.6 Hypokalemia
CPT/HCPCS: 71046; 80053; 80061; 82962; 83036; 83880; 84484; 85025; 85027; 85730; 93005; 93306; 93458; 94660; 96374; 97163; 97166; 99152; 99153; 99285; C1894; Q9967

== ENCOUNTER 2024-06-02 06:17 | Day surgery (SDC) | payer OTHER, SELFPAY ==
[2024-05-30 13:48] VITALS: BMI 33.2
[2024-06-02] VITALS (21 sets, daily range): BP systolic 123–177; BP diastolic 57–92; BMI 33.2
[2024-06-02 00:24] LABS: PSA Total 0.4 ng/mL (0.0-4.0)
[2024-06-02 09:04] LABS: Glucose - Point of Care 159 mg/dl (70-99)
[2024-06-02] MEDS: NORMOSOL-R/PLASMALYTE-A 1000 IV (09:11)
[2024-06-02 10:50] LABS: Glucose - Point of Care 160 mg/dl (70-99)
--- NOTE | 2024-06-02 11:03 | W.IMMPOSTOP ---
Surgical Immed Post Op Note
-
Primary Surgeon: Karisfer
Assisting Surgeon: none
Pre-op Diagnosis: BPH, urinary retention
Post-op Diagnosis: same
Procedure Performed: TURP
Anesthesia Type: gen
Specimen / Cultures: chips
Estimated Blood Loss: 1cc
Complications: none
Operative Findings: routine TURP
[2024-06-02] MEDS: DETROL LA 4 MG PO (11:32)
[2024-06-02] MEDS: ROCEPHIN 1000 MG IV (11:35)
[2024-06-02] MEDS: STERILE WATER FOR INJECTION 10 ML IV (11:35)
[2024-06-02] MEDS: SYNTHROID 25 MCG PO (12:15)
[2024-06-02 12:19] LABS: Glucose - Point of Care 182 mg/dl (70-99)
[2024-06-02] MEDS: NOVOLOG FLEXPEN-MODERATE RESISTANCE 1 UNITS SC (12:31)
--- NOTE | 2024-06-02 13:29 | SUR.PHASEI ---
vss, awake and alert, no pain, CBI in pacu, continue nasal oxygen as patient uses BIPAP with rest at home. Dr Spencer called to address patient's regular meds. Given detrol po, glucose monitored and treated. outflow from CBI is slight pink tinged,
Dr Spencer visits x1.
[2024-06-02] MEDS: SINEMET 25-100 2 TABLET PO ×2 (15:24→21:10)
[2024-06-02] MEDS: APRESOLINE 50 MG PO ×2 (15:26→21:10)
[2024-06-02] MEDS: LASIX 20 MG IV (16:04)
[2024-06-02] MEDS: NOVOLOG FLEXPEN-MODERATE RESISTANCE 7 UNITS SC (17:18)
[2024-06-02 17:19] LABS: Glucose - Point of Care 335 mg/dl (70-99)
--- NOTE | 2024-06-02 18:08 | PTCARENOTE ---
Patient admitted from [facility] post TURP secondary to an enlarged prostate.The patient is alert and oriented and denies any pain.The continuous bladder irrigation is running with no clots seen.The urine goes from punch color ro pink.Vital signs are
stable.The patient is in his bed with call mayberry in reach.
[2024-06-02] MEDS: MYSOLINE 100 MG PO (19:46)
[2024-06-02] MEDS: BUSPAR 30 MG PO (21:10)
[2024-06-02] MEDS: CRESTOR 40 MG PO (21:10)
[2024-06-02 21:46] LABS: Glucose - Point of Care 328 mg/dl (70-99)
[2024-06-02] MEDS: LANTUS 0.6 UNITS SC (22:26)
[2024-06-02] MEDS: REMERON 7.5 MG PO (23:07)
[2024-06-03 00:26] VITALS: PULSE 2
[2024-06-03 03:25] VITALS: BP 111/70
[2024-06-03 03:32] VITALS: PULSE 2
[2024-06-03] MEDS: SYNTHROID 25 MCG PO (05:42)
[2024-06-03 06:00] VITALS: BMI 32.3
[2024-06-03 06:42] LABS: Hematocrit 34.4 % (39.0-52.0); Hemoglobin 11.2 g/dL (13.0-18.0); Mean Corp Hgb Conc. 32.6 g/dL (33.0-37.0); Mean Corpuscular Hgb 25.9 pg (27.0-31.0); Mean Corpuscular Volume 79.4 fL (80.0-94.0); Mean Platelet Volume 10.3 fL (7.4-10.4); Platelet Count 259 10^3/uL (130-400); Red Blood Cell Count 4.33 10^6/uL (4.70-6.10); Red Cell Dist. Width 16.5 % (11.5-14.5); White Blood Cell Count 8.8 10^3/uL (4.8-10.8)
[2024-06-03 07:10] LABS: Blood Urea Nitrogen 42 mg/dl (9-20); Calcium 8.7 mg/dl (8.4-10.2); Carbon Dioxide 29 mmol/L (22-30); Chloride 95 mmol/L (98-107); Estimated Creatinine Clearance 50 ml/min; Glucose 169 mg/dl (70-99); Potassium 4.2 mmol/L (3.5-5.1); Sodium 135 mmol/L (135-145); eGFR > 60.00
[2024-06-03 07:33] LABS: Glucose - Point of Care 147 mg/dl (70-99)
[2024-06-03 07:58] VITALS: BP 144/78
[2024-06-03] MEDS: NOVOLOG FLEXPEN-MODERATE RESISTANCE SC (08:15)
[2024-06-03] MEDS: SINEMET 25-100 2 TABLET PO ×2 (08:23→17:16)
[2024-06-03] MEDS: NORVASC 2.5 MG PO (08:23)
[2024-06-03] MEDS: EFFEXOR XR 150 MG PO (08:23)
[2024-06-03] MEDS: MYSOLINE 100 MG PO (08:23)
[2024-06-03] MEDS: PROTONIX 40 MG PO (08:23)
[2024-06-03] MEDS: LASIX 20 MG PO (08:23)
[2024-06-03] MEDS: IMDUR (EXTENDED RELEASE) 30 MG PO (08:23)
[2024-06-03] MEDS: LOW STRENGTH ASPIRIN 81 MG PO (08:23)
[2024-06-03] MEDS: CARDURA 2 MG PO (08:24)
[2024-06-03] MEDS: PROSCAR 5 MG PO (08:24)
[2024-06-03] MEDS: TOPROL XL 12.5 MG PO (08:24)
[2024-06-03] MEDS: ZETIA 10 MG PO (08:24)
[2024-06-03] MEDS: APRESOLINE 50 MG PO ×2 (08:24→17:16)
--- NOTE | 2024-06-03 08:41 | W.PN.URO.CBU ---
Addendum entered and electronically signed by Rich Spencer MD 06/03/24 09:06:
Irrigated camargo at bedside, no clots, light pink
Continue with CBI capped and will observe through the morning
Original Note:
Today's Communication / Plan
-
Continue CBI
Discharge planning
Assessment / Plan
-
79M with chronic urinary retention and BPH
POD 1 s/p TURP
- Hematuria moderate this AM - red off CBI
- Resume CBI through AM and recheck this afternoon
- Possible discharge if clearing
Diagnosis
-
Date of Service: June 03, 2024
-
Patient Diagnosis:
BPH
Urinary retention
Post Op Day:
Subjective
-
no issues overnight
Objective
-
Vital Signs
Temp Pulse Resp BP Pulse Ox
98.1 F 79 16 144/78 97
06/03/24 07:58 06/03/24 07:58 06/03/24 07:58 06/03/24 07:58 06/03/24 07:58
Intake and Output
06/02/24 06/03/24 06/04/24
06:59 06:59 06:59
Intake Total 1170 / 1170
Output Total 1400 / 1400
Balance -230 / -230
Intake:
Oral fluids 1020 / 1020
IV fluids (Total) 150 / 150
normosol 150 / 150
Output:
True Urine Output from CBI 1400 / 1400
Laboratory Results
06/03/24 06:14
06/03/24 06:14
Physical Exam
-
General - well developed, well nourished, no acute distress
Chest - clear
Abdomen - soft, non tender
- camargo in place - red urine off CBI
[2024-06-03 11:32] LABS: Glycohemoglobin (HgbA1c) 7.9 % (4.0-5.6)
--- NOTE | 2024-06-03 11:53 | CM ---
Addendum entered by Salima Rubio RN 06/03/24 16:10:
Appears patient to be discharged to home with camargo. VN referrals sent for camargo teaching and management.
Original Note:
Reviewed the chart notes and spoke with the patient at the bedside. Patient is POD 1 s/p TURP. The patient resides with spouse and son in a split level home with a total of three steps to enter. The patient has a BiPAP. Patient reports having VN
in the past, but could not recall the name of the agency. The patient confirmed his pharmacy of choice is the [facility] and PCP is Obdulio Pinto. Patient's CBI clamped, camargo remains. CM continues to be available to
patient/family and is monitoring medical plan for needs at discharge.
Plan: Discharge plans will depend on the patient's progress.
[2024-06-03 12:13] LABS: Glucose - Point of Care 162 mg/dl (70-99)
--- NOTE | 2024-06-03 13:02 | W.PN.UPDATE ---
Update Note
Progress Note Update
Light pink urine off CBI all morning
Discharge home with camargo in place
[2024-06-03] MEDS: ROCEPHIN 1000 MG IV (13:09)
[2024-06-03] MEDS: NOVOLOG FLEXPEN-MODERATE RESISTANCE 1 UNITS SC (13:09)
[2024-06-03] MEDS: STERILE WATER FOR INJECTION 10 ML IV (13:10)
[2024-06-03 15:52] LABS: Glucose - Point of Care 256 mg/dl (70-99)
[2024-06-03 16:26] VITALS: BP 133/90
[2024-06-03] MEDS: NOVOLOG FLEXPEN-MODERATE RESISTANCE 5 UNITS SC (17:17)
== END 2024-06-03 17:15 | disposition home or self-care (01) ==
LOC: SDS 06:17
PROVIDERS: ATTENDING PHYSICIAN Urology; FAMILY PHYSICIAN Family Medicine; OTHER PHYSICIAN Internal Medicine; OTHER PHYSICIAN Internal Medicine Cardiovascular Disease
DX: N40.1 Benign prostatic hyperplasia with lower urinary tract symptoms (principal); C61 Malignant neoplasm of prostate; N41.1 Chronic prostatitis
CPT/HCPCS: 52601; 88305; 36415; 80048; 82962; 83036; 84153; 84154; 85027; 88341; 88344; 94660

== ENCOUNTER 2024-06-04 09:14 | Emergency (ER) | payer OTHER, SELFPAY ==
[2024-06-04 09:15] VITALS: BP 167/90
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
[2024-06-04 10:01] LABS: % Basophils 0.5 % (0-2); % Eosinophils 5.3 % (0-6); % Immature Granulocytes 0.3 % (0-0.5); % Lymphocytes 20.9 % (20.5-51.1); % Monocytes 6.9 % (1.7-9.3); % Neutrophils 66.1 % (42.2-75.2); Absolute Basophils 0.1 10^3/uL (0-0.2); Absolute Eosinophils 0.5 10^3/uL (0-0.7); Absolute Monocytes 0.7 10^3/uL (0.1-0.6); Absolute Neutrophils 6.2 10^3/uL (1.4-6.5); Hematocrit 33.5 % (39.0-52.0); Hemoglobin 10.8 g/dL (13.0-18.0); Mean Corp Hgb Conc. 32.2 g/dL (33.0-37.0); Mean Corpuscular Hgb 25.8 pg (27.0-31.0); Mean Corpuscular Volume 80.1 fL (80.0-94.0); Mean Platelet Volume 9.9 fL (7.4-10.4); Nucleated Red Blood Cells % 0 % (-); Platelet Count 245 10^3/uL (130-400); Red Blood Cell Count 4.18 10^6/uL (4.70-6.10); Red Cell Dist. Width 16.8 % (11.5-14.5); White Blood Cell Count 9.4 10^3/uL (4.8-10.8)
[2024-06-04 10:13] LABS: ALT (SGPT) 13 U/L (0-50); AST (SGOT) 25 U/L (17-59); Albumin 4.6 g/dl (3.5-5.0); Alkaline Phosphatase 92 U/L (38-126); Blood Urea Nitrogen 43 mg/dl (9-20); Calcium 8.6 mg/dl (8.4-10.2); Carbon Dioxide 30 mmol/L (22-30); Chloride 95 mmol/L (98-107); Glucose 78 mg/dl (70-99); Potassium 3.8 mmol/L (3.5-5.1); Sodium 136 mmol/L (135-145); Total Bilirubin 0.3 mg/dl (0.2-1.3); Total Protein 7.8 g/dl (6.3-8.2); eGFR 55.53
--- NOTE | 2024-06-04 10:41 | W.PN.URO.CBU ---
Today's Communication / Plan
-
d/c with Rod
f/u with Dr Spencer
Assessment / Plan
-
clogged Rod; now replaced
Diagnosis
-
Date of Service: June 04, 2024
-
Patient Diagnosis: clot urinary retention s/p TURP
Post Op Day: 2
Subjective
-
awoke today with scant urine in Rod
Objective
-
Vital Signs
Temp Pulse Resp BP Pulse Ox
98.2 F 88 16 167/90 98
06/04/24 09:15 06/04/24 09:15 06/04/24 10:00 06/04/24 09:15 06/04/24 09:15
Laboratory Results
06/04/24 09:46
06/04/24 09:46
Physical Exam
-
existing 24 Fr 3-way removed
24 Fr 2-way with enhanced fenestration placed with prompt return of several hundred ml of bloody but clot-free urine; hand-irrigated w/o return of clots
[2024-06-04 11:19] VITALS: BP 132/80
== END 2024-06-04 11:20 | disposition home or self-care (01) ==
LOC: EMR 09:14
PROVIDERS: Physician Assistant; EMERGENCY PHYSICIAN Emergency Medicine; FAMILY PHYSICIAN Family Medicine; OTHER PHYSICIAN Specialist; REFERRING PHYSICIAN Internal Medicine
DX: T83.091A Other mechanical complication of indwelling urethral catheter, initial encounter (principal); R33.8 Other retention of urine; R31.9 Hematuria, unspecified; R10.30 Lower abdominal pain, unspecified; N40.1 Benign prostatic hyperplasia with lower urinary tract symptoms; I25.10 Atherosclerotic heart disease of native coronary artery without angina pectoris; I11.0 Hypertensive heart disease with heart failure; I50.9 Heart failure, unspecified; E78.00 Pure hypercholesterolemia, unspecified; G47.30 Sleep apnea, unspecified; F43.10 Post-traumatic stress disorder, unspecified; F41.9 Anxiety disorder, unspecified; F32.A Depression, unspecified; E11.9 Type 2 diabetes mellitus without complications; M19.90 Unspecified osteoarthritis, unspecified site; Z98.890 Other specified postprocedural states; Z79.82 Long term (current) use of aspirin; Z79.02 Long term (current) use of antithrombotics/antiplatelets; Z79.4 Long term (current) use of insulin; Z86.73 Personal history of transient ischemic attack (TIA), and cerebral infarction without residual deficits
CPT/HCPCS: 99284; 51702; 51798; 80053; 85025

== ENCOUNTER 2024-06-07 01:02 | Emergency (ER) | payer OTHER, SELFPAY ==
[2024-06-07 01:09] VITALS: BP 133/78
[2024-06-07 02:52] VITALS: BP 142/68
[2024-06-07 03:00] VITALS: BP 133/64
[2024-06-07 04:00] VITALS: BP 141/68
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
== END 2024-06-07 04:41 | disposition home or self-care (01) ==
LOC: EMR 01:02
PROVIDERS: EMERGENCY PHYSICIAN Student in an Organized Health Care Education/Training Program; FAMILY PHYSICIAN Family Medicine
DX: T83.83XA Hemorrhage due to genitourinary prosthetic devices, implants and grafts, initial encounter (principal); Y84.6 Urinary catheterization as the cause of abnormal reaction of the patient, or of later complication, without mention of misadventure at the time of the procedure; N40.0 Benign prostatic hyperplasia without lower urinary tract symptoms; E78.00 Pure hypercholesterolemia, unspecified; E11.9 Type 2 diabetes mellitus without complications; F32.A Depression, unspecified; F41.9 Anxiety disorder, unspecified; F43.10 Post-traumatic stress disorder, unspecified; M19.90 Unspecified osteoarthritis, unspecified site; K21.9 Gastro-esophageal reflux disease without esophagitis; I10 Essential (primary) hypertension; G47.30 Sleep apnea, unspecified; Z98.890 Other specified postprocedural states; Z86.73 Personal history of transient ischemic attack (TIA), and cerebral infarction without residual deficits; Z87.11 Personal history of peptic ulcer disease; Z79.4 Long term (current) use of insulin; Z79.82 Long term (current) use of aspirin
CPT/HCPCS: 99283; 51798

== ENCOUNTER → 2024-08-03 15:04 | Outpatient (REF) | payer OTHER, SELFPAY | LOC: HWRAD 15:04 | PROVIDERS: ATTENDING PHYSICIAN Urology; FAMILY PHYSICIAN Family Medicine; REFERRING PHYSICIAN Internal Medicine | DX: R33.9 Retention of urine, unspecified (principal); N13.8 Other obstructive and reflux uropathy; N31.9 Neuromuscular dysfunction of bladder, unspecified | CPT/HCPCS: 76770 ==

== ENCOUNTER 2025-05-20 12:30 | Emergency (ER) | payer OTHER, SELFPAY ==
[2025-05-20 12:33] VITALS: BP 186/102
[2025-05-20 13:03] LABS: ALT (SGPT) 22 U/L (0-50); AST (SGOT) 29 U/L (17-59); Albumin 4.6 g/dl (3.5-5.0); Alkaline Phosphatase 154 U/L (38-126); Blood Urea Nitrogen 28 mg/dl (9-20); Calcium 9.0 mg/dl (8.4-10.2); Carbon Dioxide 28 mmol/L (22-30); Chloride 98 mmol/L (98-107); Glucose 280 mg/dl (70-99); Lipase 62 U/L (23-300); Potassium 4.8 mmol/L (3.5-5.1); Sodium 135 mmol/L (135-145); Total Protein 8.7 g/dl (6.3-8.2); eGFR > 60.00
[2025-05-20 14:22] LABS: Hematocrit 43.6 % (39.0-52.0); Hemoglobin 13.7 g/dL (13.0-18.0); Mean Corp Hgb Conc. 31.4 g/dL (33.0-37.0); Mean Corpuscular Volume 80.3 fL (80.0-94.0); Nucleated Red Blood Cells % 0 % (-); Platelet Count 231 10^3/uL (130-400)
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
--- NOTE | 2025-05-20 18:26 | CONS.URO ---
Consultation
-
Date/Time Consultation Performed: 1800 05/20/25
Performing Provider: Peffer
Reason for Consultation: Urinary retention
Medical History
History of Present Illness
80M known to me with history of chronic urinary retention
S/p TURP for attempt at emptying bladder which was not successful
When last seen in April he was retaining significant volume of urine
He was scheduled for suprapubic tube placement but cancelled due to insurance issues
He presents with abdominal pain and progressive difficulty voiding
Found to have retention
ED staff unable to place camargo
PMHx: CVA, HTN, Hypercholesterolemia, IDDM, BPH, GERD, peptic ulcer disease, sleep apnea, DJD, chronic diarrhea, anxiety, depression, PTSD
Past Surgical History: TURP
Social History
Living: With Family
Family History
Family History: Reviewed & Not Pertinent
Allergies/Home Medications
Allergies
Allergy/AdvReac Type Severity Reaction Status Date / Time
No Known Allergies Allergy Verified 06/07/24 01:10
Home Medications
�Medication �Instructions �Recorded �Confirmed �Type
buspirone 15 mg tablet 30 mg PO HS anxiety 08/28/23 06/02/24 History
carbidopa 25 mg-levodopa 100 mg 2 tab PO TID Neurological Condition 08/28/23 06/02/24 History
tablet
clopidogrel 75 mg tablet 75 mg PO DAILY Blood Clot 08/28/23 06/02/24 History
Held on 06/03/24. Prevention/Tx
Instructions: Resume on
06/07/24.
cyanocobalamin (vitamin B-12) 1,000 mcg PO DAILY Supplement 08/28/23 06/02/24 History
1,000 mcg tablet
finasteride 5 mg tablet 5 mg PO DAILY prostate issue 08/28/23 06/02/24 History
insulin aspart U-100 100 unit/mL 0 sliding scale dose SC 08/28/23 06/02/24 History
subcutaneous solution (Novolog DIRECTED Diabetes
U-100 Insulin aspart)
mirtazapine 15 mg tablet 7.5 mg PO HS depression/sleep 08/28/23 06/02/24 History
primidone 50 mg tablet 100 mg PO BID movement disorder 08/28/23 06/02/24 History
rosuvastatin 40 mg tablet 40 mg PO HS High Cholesterol 08/28/23 06/02/24 History
aspirin 81 mg chewable tablet 81 mg PO DAILY Heart 09/01/23 06/02/24 Rx
(Children's Aspirin) disease/condition #30 tabs
pantoprazole 40 mg tablet,delayed 40 mg PO DAILY Gastrointestinal 09/27/23 06/02/24 Rx
release issue #30 tabs
doxazosin 2 mg tablet 2 mg PO DAILY Urinary Issue 04/11/24 06/02/24 History
empagliflozin 25 mg tablet 25 mg PO DAILY Diabetes 04/11/24 06/02/24 History
ezetimibe 10 mg tablet (Zetia) 10 mg PO DAILY High Cholesterol 04/11/24 06/02/24 History
isosorbide mononitrate 30 mg 30 mg PO DAILY Heart 04/11/24 06/02/24 History
tablet,extended release 24 hr Disease/Condition
levothyroxine 25 mcg tablet 25 mcg PO DAILY Thyroid 04/11/24 06/02/24 History
amlodipine 2.5 mg tablet 2.5 mg PO DAILY #30 tabs 04/13/24 06/02/24 Rx
furosemide 20 mg tablet 20 mg PO DAILY #30 tabs 04/13/24 06/02/24 Rx
hydralazine 100 mg tablet 50 mg (1/2 x 100 mg) PO TID Blood 04/13/24 06/02/24 Rx
Pressure #0 tabs
metoprolol succinate 25 mg 12.5 mg (1/2 x 25 mg) PO DAILY #30 04/13/24 06/02/24 Rx
tablet,extended release 24 hr tabs
nitroglycerin 0.4 mg sublingual 0.4 mg sublingual [id number] PRN 11/13/24 01/02/25 Rx
tablet chest pain #10 tabs
insulin glargine 100 unit/mL (3 60 unit SC HS diabetes 05/19/24 06/02/24 History
mL) subcutaneous pen
venlafaxine 150 mg 150 mg PO DAILY 05/19/24 06/02/24 History
capsule,extended release 24 hr
Physical Exam
Vital Signs
Vital Signs
Temp Pulse Resp BP Pulse Ox
97.9 F 56 26 186/102 94
05/20/25 12:33 05/20/25 16:15 05/20/25 16:15 05/20/25 12:33 05/20/25 15:05
Lab / Testing Results
Laboratory Results
05/20/25 12:38
05/20/25 12:38
Physical Exam
General: Well Developed, Well Nourished and No Apparent Distress
GI: Soft and Distended
Genito-urinary: No Costovertebral Tend
Neuro: AO x 3
Psych: Calm and Intact Judgement
Assessment / Plan
-
80M with chronic urinary retention, neurogenic bladder, difficult [place] catheter
Known to me with recurrent retention s/p TURP and was previously scheduled for suprapubic tube placement
Presenting with acute urinary retention and abdominal pain
- Eval at bedside with attempts at cam[place] placement which were unsuccessful
- SP Tube procedure reviewed with patient - OR consent already on file and as per prior office discussion
Suprapubic tube placement
- Sterile prep and drape of suprapubic region
- 10cc lidocaine with epi administered superficial and down to bladder
- 20ga spinal needle used to confirm bladder location with return of clear urine
- 11 blade used to make 1cm skin incision
- Introducer used to dilate tract into bladder
- 16Fr SP tube was placed without difficulty, return of 1700cc clear yellow urine
- 2g ancef periop abx
- Outpatient follow up in 6 weeks for SP tube change
[2025-05-20] MEDS: ANCEF 10 IV (19:06)
[2025-05-20 19:31] LABS: Urine Character Slightly Cloudy (Clear)
[2025-05-20 19:46] LABS: Urine Squamous Cell None seen /LPF (Few)
[2025-05-20 19:48] LABS: Urine Red Blood Cell 60-70 /HPF (0-2)
[2025-05-20 19:49] LABS: Urine White Cell 26-30 /HPF (0-5)
[2025-05-20 20:38] VITALS: BP 151/69
[2025-05-20 20:39] VITALS: BP 151/69
== END 2025-05-20 21:06 | disposition home or self-care (01) ==
LOC: EMR 12:30
PROVIDERS: Emergency Medicine; Physician Assistant; CONSULT PHYSICIAN Urology; EMERGENCY PHYSICIAN Emergency Medicine; FAMILY PHYSICIAN Family Medicine
DX: N40.1 Benign prostatic hyperplasia with lower urinary tract symptoms (principal); R33.8 Other retention of urine; E11.9 Type 2 diabetes mellitus without complications; E78.00 Pure hypercholesterolemia, unspecified; G20.A1 Parkinson's disease without dyskinesia, without mention of fluctuations; G47.30 Sleep apnea, unspecified; I11.0 Hypertensive heart disease with heart failure; I50.9 Heart failure, unspecified; I25.10 Atherosclerotic heart disease of native coronary artery without angina pectoris; I35.0 Nonrheumatic aortic (valve) stenosis; Z79.02 Long term (current) use of antithrombotics/antiplatelets; Z86.73 Personal history of transient ischemic attack (TIA), and cerebral infarction without residual deficits; Z87.11 Personal history of peptic ulcer disease; Z59.71 Insufficient health insurance coverage; Z90.79 Acquired absence of other genital organ(s); N32.89 Other specified disorders of bladder
CPT/HCPCS: 51102; 96374; 99285; 74177; 80053; 81003; 81015; 83690; 85025; 87086; Q9967